=== PATIENT | male | born 1965 | race Caucasian/White ===

== ENCOUNTER 2020-05-21 08:43 | Emergency (ER) | payer OTHER ==
--- OUTSIDE RECORDS SUMMARY | 2020-05-21 08:47 | XMS REPORT | Continuity of Care Document ---
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/2019 Med ical disorder, Group, systemic arterial [place] (disorder) Morbid obesity Active Problem 02/15/2019 [facility] edical (disorder) Group 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, EXCEP Medications Medication Details Route Status Patient Ordering Order Source Instructions Provider Date Docusate Sodium 100 mg = 1 Active 100 MG Oral cap, PO, BID, 2018 [facility] ast Capsule [Colace] # 90 cap, 0 Refill(s), Pharmacy: [id number] tramadol 50 mg = 1 tab, Active hydrochloride 50 PO, Q8H, PRN 2019 [place] MG Oral Tablet Pain, X 20 day, # 60 tab, 0 Refill(s) rosuvastatin Notes: Same as No Longer Crestor Active 2018 [place] Entereg Notes: Same No Longer as: Entereg Active 2018 [place] Maximum of 15 doses Alert Restricted medication Alvimopan (Entergen) order form must be completed prior to dispensing. ceFAZolin + Notes: (Same Inactive sterile water 10 As: Ancef, 2018 [place] mL Kefzol) MEDICATION WASTE Product Size: 1000 mg Product Wasted: ___ mg Hydralazine 10 mg, Route: Inactive IVP, Q20Min, 2018 [place] Dosing Weight 124.545, kg, PRN Elevated BP, Start date: 02/02/19 12:57:00 CDT, Duration: 2 doses or times, Stop date: Limited # of times Labetalol 10 mg, Route: Inactive IVP, Q5Min, 2018 [place] Dosing Weight 124.545, kg, PRN Elevated BP, Start date: 02/02/19 12:57:00 CDT, Duration: 5 doses or times, Stop date: Limited # of times Metoprolol 1 mg, Route: Inactive IVP, Q5Min, 2018 [place] Dosing Weight 124.545, kg, PRN Other -See Comment, Start date: 02/02/19 12:57:00 CDT, Duration: 5 doses or times, Stop date: Limited # of times Ketorolac 30 mg, Route: Inactive IVP, ONCE, 2018 [place] Dosing Weight 124.545, kg, Start date: 02/02/19 12:57:00 CDT, Stop date: 02/02/19 12:57:00 CDT Acetaminophen 1,000 mg, Inactive Route: PO, 2018 [place] Drug form: TAB, ONCE, Dosing Weight 124.545, kg, PRN Pain Score 1-3, Start date: 02/02/19 12:57:00 CDT Ibuprofen 600 mg, Route: Inactive PO, Drug form: 2018 [place] TAB, Q6H, Dosing Weight 124.545, kg, PRN Pain Score 1-3, Start date: 02/02/19 12:57:00 CDT, Duration: 30 day, Stop date: 03/04/19 12:56:00 CDT Fentanyl 25 microgram, Inactive Route: IVP, 2018 [place] Q5Min, Dosing Weight 124.545, kg, PRN Pain Score 4-6, Priority: Routine, Start date: 02/02/19 12:57:00 CDT, Duration: 4 doses or times, Stop date: Limited # of times Hydromorphone 0.5 mg, Route: Inactive IVP, Q5Min, 2018 [place] Dosing Weight 124.545, kg, PRN Pain Score 7-10, Start date: 02/02/19 12:57:00 CDT, Duration: 4 doses or times, Stop date: Limited # of times Flumazenil 0.2 mg, Route: Inactive IVP, PRN, 2018 [place] Dosing Weight 124.545, kg, PRN Benzodiazepine Reversal, Initial dose, Start date: 02/02/19 12:57:00 CDT, Duration: 30 day, Stop date: 03/04/19 12:56:00 CDT Naloxone 0.4 mg, Route: Inactive IVP, Q2MIN, 2018 [place] Dosing Weight 124.545, kg, PRN Narcotic Reversal, Start date: 02/02/19 12:57:00 CDT, Duration: 8 doses or times, Stop date: Limited # of times Diphenhydramine 12.5 mg, Inactive Route: IVP, 2018 [place] Drug form: INJ, Q6H, Dosing Weight 124.545, kg, PRN Itching, Start date: 02/02/19 12:57:00 CDT, Duration: 30 day, Stop date: 03/04/19 12:56:00 CDT Meperidine 12.5 mg, Inactive Route: IVP, 2018 [place] Q30Min, Dosing Weight 124.545, kg, PRN Other -See Comment, For shivering, Start date: 02/02/19 12:57:00 CDT, Duration: 2 doses or times, Stop date: Limited # of times Ondansetron 4 mg, Route: Inactive IVP, ONCE, 2018 [place] Dosing Weight 124.545, kg, PRN Nausea & Vomiting, Start date: 02/02/19 12:57:00 CDT Promethazine 6.25 mg, Inactive Route: IVPB, 2018 [place] ONCE, Dosing Weight 124.545, kg, PRN Nausea & Vomiting, Start date: 02/02/19 12:57:00 CDT 72 HR Scopolamine 1 patch, Inactive 0.0139 MG/HR Route: [facility], 2019 [facility] Transdermal Patch Drug Form: ERFILM, Dosing Weight 124.545, kg, ONCE, Apply behind ear. Avoid use in elderly., Start date: 02/02/19 12:57:00 CDT, Stop date: 02/02/19 12:57:00 CDT sugammadex (ANES) Route: IV, Inactive Drug form: 2018 [place] SOLN, ONCE, Stop date: 02/02/19 12:51:00 CDT Acetaminophen Notes: Max No Longer acetaminophen Active 2018 [place] = 4000mg/day (4 gm/day). (Same as: Tylenol) Methocarbamol Notes: (Same No Longer as:Robaxin) Active 2018 [place] ondansetron (ANES) Route: IV, Inactive H Drug form: 2018 [place] INJ, ONCE, Stop date: 02/02/19 11:58:00 CDT acetaminophen Route: IV, Inactive (ANES) Drug form: 2018 [place] INJ, ONCE, Stop date: 02/02/19 11:53:00 CDT mannitol 25% Route: IV, Inactive intravenous Drug form: 2018 [place] solution (ANES) INJ, ONCE, Stop date: 02/02/19 10:57:00 CDT phenylephrine Route: IV, Inactive (ANES) Drug form: 2018 [place] INJ, ONCE, Stop date: 02/02/19 10:16:00 CDT dexamethasone Route: IV, Inactive (ANES) Drug form: 2018 [place] INJ, ONCE, Stop date: 02/02/19 10:05:00 CDT ciprofloxacin Route: IV, Inactive (ANES) Drug form: 2018 [place] INJ, ONCE, Stop date: 02/02/19 9:56:00 CDT ceFAZolin (ANES) Route: IV, Inactive Drug form: 2018 [place] INJ, ONCE, Stop date: 02/02/19 9:56:00 CDT rocuronium (ANES) Route: IV, Inactive Drug form: 2018 [place] INJ, ONCE, Stop date: 02/02/19 9:40:00 CDT lidocaine (ANES) Route: IV, Inactive Drug form: 2018 [place] INJ, ONCE, Stop date: 02/02/19 9:35:00 CDT propofol (ANES) Route: IV, Inactive Drug form: 2018 [place] INJ, ONCE, Stop date: 02/02/19 9:35:00 CDT midazolam (ANES) Route: IV, Inactive Drug form: 2018 [place] SOLN, ONCE, Stop date: 02/02/19 9:09:00 CDT Docusate Sodium Notes: (Same No Longer H 100 MG Oral as: [facility]) [facility] (Do Not Crush) sennosides, HALFWAY Notes: (Same No Longer H as: Senokot) Active 2018 [place] Calcium Chloride 1,000 mL, No Longer 0.0014 MEQ/ML / Rate: 75 Active 2019 [facility] st Potassium Chloride ml/hr, Infuse 0.004 MEQ/ML / over: 13.3 hr, Sodium Chloride Route: IV, 0.103 MEQ/ML / Dosing Weight Sodium Lactate 124.545 kg, 0.028 MEQ/ML Total Volume: Injectable 1,000, Start Solution date: 02/02/19 8:12:00 CDT, Duration: 1 day, Stop date: 02/03/19 8:11:00 CDT, 2.46, m2, 0 dexmedetomidine Route: IV, Inactive (ANES) 200 Drug form: 2018 [place] microgram INJ, Start date: 02/02/19 8:10:00 CDT, Stop date: 02/02/19 9:10:00 CDT Sodium Chloride Route: IV, Inactive 0.9% IV (ANES) 100 Drug form: 2018 [place] mL + ketAMINE INJ, Start (ANES) 200 mg date: 02/02/19 8:10:00 CDT, Stop date: 02/02/19 9:10:00 CDT Sodium Chloride Route: IV, Inactive 0.9% IV (ANES) Total Volume: 2019 [place] 1000 mL 1,000, Start date: 02/02/19 8:03:00 CDT, Stop date: 02/02/19 9:03:00 CDT Cefazolin Notes: (Same Inactive As: Ancef, 2018 [place] Kefzol) MEDICATION WASTE Product Size: 1000 mg Product Wasted: ___ mg gabapentin 300 MG Notes: (Same No Longer Oral Capsule as: Neurontin) Active 2019 [place] heparin Notes: porcine No Longer heparin Active 2018 [place] Calcium Chloride 1,000 mL, No Longer 0.0014 MEQ/ML / Rate: 75 Active [address] [facility] st Potassium Chloride ml/hr, Infuse 0.004 MEQ/ML / over: 13.3 hr, Sodium Chloride Route: IV, 0.103 MEQ/ML / Dosing Weight Sodium Lactate 124.545 kg, 0.028 MEQ/ML Total Volume: Injectable 1,000, Start Solution date: 02/02/19 7:59:00 CDT, Duration: 30 day, Stop date: 03/04/19 7:58:00 CDT, 2.46, m2, 0 oxybutynin Notes: Same No Longer as: Ditropan) Active 2018 [place] Hydralazine Notes: (Same No Longer as: Active 2018 [place] Apresoline) Push over 5 minutes Dilaudid Notes: Same No Longer as: Dilaudid Active 2018 [place] Lactated Ringers Route: IV, Inactive Injection IV Total Volume: 2018 [facility] (ANES) 1000 mL 1,000, Start date: 02/02/19 7:30:00 CDT, Stop date: 02/02/19 8:30:00 CDT Exparel 266 mg, Route: Inactive NERVE BLOCK, 2018 [place] Dosing Weight 124.545, kg, ONCE, Start date: 02/02/19 6:59:00 CDT, Stop date: 02/02/19 6:59:00 CDT Mannitol Notes: (Same Inactive as: Osmitrol) 2018 [place] Infuse through 5 micron or smaller filter WASTE: F/P - Sink; E - Municipal Trash [employer] Exparel Notes: (Same No Longer as: Exparel) Active 2018 [place] NOT FOR IV use Postoperative analgesia: Infiltration (local): Dose is based on surgical site and volume required to cover the area (in general, the maximum total dose is 266 mg). Bunionectomy: 7 mL into the tissues surrounding the osteotomy and 1 mL into the subcutaneous tissue of the surgical site (total dose = 8 mL [106 mg]) Hemorrhoidecto my: 30 mL (20 mL vial diluted with 10 mL NS) divided and administered as 6 injections of 5 mL each (total dose = 30 mL [266 mg]) Interscalene brachial plexus nerve block: Single dose: Total shoulder arthroplasty or rotator cuff repair: 133 mg (10 mL) Hydrochlorothiazid 1 tab, PO, Active e 12.5 MG / Daily, 0 2018 valsartan 320 MG Refill(s) Oral Tablet neomycin 500 mg 1,000 mg = 2 No Longer 01/26/ M [facility] oral tablet tab, PO, TID, Active 2018 Group take 2 tablets at 4pm, 5pm, 10pm day before surgery, X 1 day, # 6 tab, 0 Refill(s), Pharmacy: [facility] #[id number] Metronidazole 500 500 mg = 1 No Longer 01/26/ H [facility] MG Oral Tablet tab, PO, Q8H, Active 2018 [place] take 1 tablet at 4pm, 5pm, 10pm day before surgery, X 1 day, # 3 tab, 0 Refill(s), [facility]acy: [facility] #[id number] gabapentin 600 MG 600 mg = 1 Active Medical Oral Tablet tab, PO, 2019 Group Daily, 3 hours prior to surgery, # 1 tab, 0 Refill(s), Pharmacy: [facility] #[id number] methocarbamol 750 750 mg = 1 No Longer 01/26/ H Medical mg oral tablet tab, PO, Active 2019 Group Daily, take 3 hours prior to surgery, X 1 day, # 1 tab, 0 Refill(s), Pharmacy: [facility] #[id number] celecoxib 200 MG 200 mg = 1 Active edical Oral Capsule cap, PO, 2019 Group [Celebrex] Daily, take 3 hours prior to surgery, # 1 cap, 0 Refill(s), Pharmacy: [facility] #[id number] Allergies, Adverse Reactions, Alerts Substance Category Reaction Severity Reaction Status Date Comments S ource type Reported sulfa drugs Assertion Unknown Drug Active allergy Medical Group Adhesive Assertion Drug Active Tape allergy Medical Group Immunizations No Data Provided for This Section Results Order Name Results Value Reference Date Interpretation Comments Neva [facility] [place] ELECTROLYT AGAP 10.1 10.0 - 02/03 [facility] 20.0 [place] ELECTROLYT Glucose Lvl 134 70 - 99 02/03 [place] ELECTROLYT BUN 11 7 - 22 02/03 [place] ELECTROLYT Creatinine 1.11 0.50 - 02/03 ES Lvl 1.40 /2018 [place] ELECTROLYT Sodium Lvl 142 135 - 145 02/03 [place] ELECTROLYT Potassium 4.1 3.5 - 5.1 02/03 ES Lvl /2018 [place] ELECTROLYT Chloride Lvl 109 95 - 109 02/03 [place] ELECTROLYT CO2 27 24 - 32 02/03 [place] ELECTROLYT Calcium Lvl 8.2 8.5 - 10.5 02/03 [place] ELECTROLYT eGFR 74 02/03 Comment: The [place] eGFR is calculated using the CKD-EPI formula. In most young, healthy individuals the eGFR will be >90 mL/min/1.73m2 . The eGFR declines with age. An eGFR of 60-89 may be normal in some populations, particularly the elderly, for whom the CKD-EPI formula has not been extensively validated. Use of the eGFR is not recommended in the following populations:< br/>
Valeri viduals with unstable creatinine concentration s, including patients and those with serious co-morbid conditions.<b r/>
Patie nts with extremes in muscle mass or diet.

The data above are obtained from the National Kidney Disease Education Program (NKDEP) which additionally recommends that when the eGFR is used in patients with extremes of body mass index for purposes of drug dosing, the eGFR should be multiplied by the estimated BMI. HEMATOLOGY WBC 13.3 3.7 - 10.4 02/03 [place] HEMATOLOGY RBC 4.04 4.70 - 02/03 6.10 [place] HEMATOLOGY Hgb 12.9 14.0 - 02/03 18.0 [place] HEMATOLOGY Hct 38.6 42.0 - 02/03 MH 54.0 [place] HEMATOLOGY MCV 95.7 80.0 - 02/03 94.0 [place] HEMATOLOGY MCH 32.0 27.0 - 02/03 MH 31.0 [place] HEMATOLOGY MCHC 33.4 32.0 - 02/03 MH 36.0 [place] HEMATOLOGY RDW 13.8 11.5 - 08/21 MH 14.5 [place] HEMATOLOGY Platelet 199 133 - 450 02/03 [place] HEMATOLOGY MPV 8.9 7.4 - 10.4 02/03 [place] HEMATOLOGY Segs 76.4 45.0 - 02/03 [facility] 75.0 [place] HEMATOLOGY Lymphocytes 15.9 20.0 - 02/03 MH 40.0 [place] HEMATOLOGY Monocytes 6.9 2.0 - 12.0 02/03 [place] HEMATOLOGY Eosinophils 0.6 0.0 - 4.0 02/03 [place] HEMATOLOGY Basophils 0.2 0.0 - 1.0 02/03 [place] HEMATOLOGY Neutrophils 10.2 1.5 - 8.1 02/03 MH # [place] HEMATOLOGY Lymphocytes 2.1 1.0 - 5.5 02/03 [place] HEMATOLOGY Monocytes # 0.9 0.0 - 0.8 02/03 [place] HEMATOLOGY Eosinophils 0.1 0.0 - 0.5 02/03 [facility] [place] CHEM PANEL Glucose Lvl 167 70 - 99 02/02 [place] CHEM PANEL BUN 15 7 - 22 02/02 [place] CHEM PANEL Creatinine 1.19 0.50 - 02/02 Lvl 1.40 [place] CHEM PANEL Sodium Lvl 140 135 - 145 02/02 [place] CHEM PANEL Potassium 4.1 3.5 - 5.1 02/02 MH Lvl [place] CHEM PANEL Chloride Lvl 109 95 - 109 02/02 [place] CHEM PANEL CO2 22 24 - 32 02/02 [place] CHEM PANEL Calcium Lvl 7.8 8.5 - 10.5 02/02 [place] CHEM PANEL eGFR 68 02/02 Result Comment: The [place] eGFR is calculated using the CKD-EPI formula. In most young, healthy individuals the eGFR will be >90 mL/min/1.73m2 . The eGFR declines with age. An eGFR of 60-89 may be normal in some populations, particularly the elderly, for whom the CKD-EPI formula has not been extensively validated. Use of the eGFR is not recommended in the following populations:< br/>
Valeri viduals with unstable creatinine concentration s, including patients and those with serious co-morbid conditions.<b r/>
Patie nts with extremes in muscle mass or diet.

The data above are obtained from the National Kidney Disease Education Program (NKDEP) which additionally recommends that when the eGFR is used in patients with extremes of body mass index for purposes of drug dosing, the eGFR should be multiplied by the estimated BMI. CHEM PANEL AGAP 13.1 10.0 - 02/02 20.0 [place] HEMATOLOGY Hgb 14.4 14.0 - 02/02 18.0 [place] HEMATOLOGY Hct 43.4 42.0 - 02/02 54.0 [place] BLOOD BANK ABO/Rh A POS 01/26 RESULTS /2018 [place] BLOOD BANK Antibody Negative 01/26 RESULTS Scrn (01/26/19 10:08 AM) [facility] ELECTROLYT AGAP 11.8 10.0 - 01/26 ES 20.0 [place] ELECTROLYT Glucose Lvl 135 70 - 99 01/26 ES [place] ELECTROLYT BUN 19 7 - 22 01/26 ES [place] ELECTROLYT Creatinine 1.05 0.50 - 01/26 ES Lvl 1.40 [place] ELECTROLYT Sodium Lvl 142 135 - 145 01/26 ES [place] ELECTROLYT Potassium 3.8 3.5 - 5.1 01/26 ES Lvl [place] ELECTROLYT Chloride Lvl 105 95 - 109 01/26 ES [place] ELECTROLYT CO2 29 24 - 32 01/26 ES [place] ELECTROLYT Calcium Lvl 9.0 8.5 - 10.5 01/26 ES [place] ELECTROLYT eGFR 80 01/26 Comment: The [place] eGFR is calculated using the CKD-EPI formula. In most young, healthy individuals the eGFR will be >90 mL/min/1.73m2 . The eGFR declines with age. An eGFR of 60-89 may be normal in some populations, particularly the elderly, for whom the CKD-EPI formula has not been extensively validated. Use of the eGFR is not recommended in the following populations:< br/>
Valeri viduals with unstable creatinine concentration s, including patients and those with serious co-morbid conditions.<b r/>
Patie nts with extremes in muscle mass or diet.

The data above are obtained from the National Kidney Disease Education Program (NKDEP) which additionally recommends that when the eGFR is used in patients with extremes of body mass index for purposes of drug dosing, the eGFR should be multiplied by the estimated BMI. HEMATOLOGY WBC 9.0 3.7 - 10.4 01/26 [place] HEMATOLOGY RBC 4.52 4.70 - 01/26 MH 6.10 [place] HEMATOLOGY Hgb 14.5 14.0 - 01/26 MH 18.0 /2018 [place] HEMATOLOGY Hct 42.1 42.0 - 01/26 MH 54.0 /2018 [place] HEMATOLOGY MCV 93.2 80.0 - 01/26 MH 94.0 /2018 [place] HEMATOLOGY MCH 32.1 27.0 - 01/26 MH 31.0 /2018 [place] HEMATOLOGY MCHC 34.4 32.0 - 01/26 MH 36.0 /2018 [place] HEMATOLOGY RDW 13.8 11.5 - 01/26 14.5 [facility] Platelet 209 133 - 450 01/26 [place] HEMATOLOGY MPV 9.1 7.4 - 10.4 01/26 [place] HEMATOLOGY PT 12.8 12.0 - 01/26 14.7 [place] HEMATOLOGY PTT 29.5 22.9 - 01/26 35.8 /2019 [place] HEMATOLOGY INR 0.98 0.85 - 01/26 MH 1.17 /2018 [place] HEMATOLOGY Segs 64.0 45.0 - 01/26 75.0 /2018 [place] HEMATOLOGY Lymphocytes 25.7 20.0 - 01/26 40.0 /2018 [place] HEMATOLOGY Monocytes 6.8 2.0 - 12.0 01/26 /2018 [place] HEMATOLOGY Eosinophils 3.2 0.0 - 4.0 01/26 [place] HEMATOLOGY Basophils 0.3 0.0 - 1.0 01/26 [place] HEMATOLOGY Neutrophils 5.7 1.5 - 8.1 01/26 MH # /2019 [place] HEMATOLOGY Lymphocytes 2.3 1.0 - 5.5 01/26 # /2018 [place] HEMATOLOGY Monocytes # 0.6 0.0 - 0.8 01/26 [place] HEMATOLOGY Eosinophils 0.3 0.0 - 0.5 01/26 # /2018 [place] URINE AND UA Turbidity Clear Clear 01/26 STOOL (01/26/19 10:08 AM) /2018 [facility] URINE AND UA Spec Grav 1.009 <=1.030 01/26 STOOL /2019 [place] URINE AND UA pH 8.0 5.0 - 8.0 01/26 [facility]OOL [place] URINE AND UA Protein Negative Negative 01/26 STOOL mg/dL mg/dL [place] URINE AND UA Glucose Negative Negative 01/26 [facility]OOL mg/dL mg/dL [place] URINE AND UA Ketones Negative Negative 01/26 STOOL mg/dL mg/dL [place] URINE AND UA Bili Negative Negative 01/26 STOOL *NA* /2018 [place] (01/26/19 10:08 AM) URINE AND UA Blood Negative Negative 01/26 STOOL (01/26/19 10:08 AM) [facility] URINE AND UA Nitrite Negative Negative 01/26 STOOL (01/26/19 10:08 AM) [facility] URINE AND UA Leuk Est Negative Negative 01/26 STOOL (01/26/19 10:08 AM) [facility] URINE AND UA Sq Epi Occasional Few /LPF 01/26 STOOL /LPF [place] URINE AND UA WBC 1 0 - 5 01/26 STOOL [place] URINE AND UA RBC 2 0 - 2 01/26 [facility]OL [place] URINE AND UA Mucus Few /LPF None Seen 01/26 STOOL /LPF [place] URINE AND UA Color Ltyellow 01/26 [place] URINE AND UA <=1.0 0.1 - 1.0 01/26 STOOL Urobilinogen mg/dL [place] Culture: <10,000 01/26 Urine CFU/mL [place] Skin [facility] BLOOD BANK RBC product Product available 01/26 RESULTS (01/26/19 9:54 AM) [facility] ast Pathology Reports No Data Provided for This Section Diagnostic Reports Report Value Date Source Chest 2 views DX CHEST TWO VIEW 01/26/2019 [facility] INDICATION: Preadmission clearance. COMPARISON: None. FINDINGS: The lungs are keren r. The pleura, cardiomediastinal silhouette and bony thorax are normal. IMPRESSION: Negative. END IMPRESSION SL: [id number] Biopsy kidney VR PROCEDURE: 12/29/[address] [facility] [address] guided biopsy of right renal mass INDICATION: - RT RENAL MASS. COMPARISON: Magnetic resonance imaging abdomen J une 2019 TECHNICAL: CT imaging performed at this location utilizes radiation dose optimization techniques which include one or more of the following: -Automated exposure control -Adjustment of the mA and/or kV according to pat ient size -Use of iterative reconstruction technique CT Radiation Dose: DLP = 2133 mGy-cm MODERATE SEDATION: I superv ised moderate sedation during this procedure. The patient was monitored by nurse using automated blood pressure, EKG and pulse oximetry. The moderate sedation record is perma nently stored in the [employer] information system. The personal supervised moderate sedation time was minutes. Medications administered: 1 mg of IV Versed and 75micrograms of IV Fentanyl. PROCEDURE: Imaging was used to evaluate potential biopsy site. Preliminary imaging demonstrates 2 x 3 cm solid density mass within the right renal lower pole anterior cortical region. The procedure, risks, benefi ts and alternatives were discussed. Informed consent was obtained. Timeout was performed prior to the procedure. The overlying skin was steri griffin prepped and draped. 1% lidocaine was used for local anesthesia. Using imaging guidance, a guide needle was advanced into the margin of the lesion. 20-gauge core renal bi opsy was performed. Images w ere obtained to document needle positions for permanent recording and reporting. The samples were immediately submitted to pathology department. There were no evident complic ations and the patient had n o complaints. Pressure was applied at the puncture site with adequate hemostasis. Final pathology results are pending. FINDINGS: Guide needle description: 19-gauge Biopsy needle description: 20-gauge Number of biopsies obtained: 6 IMPRESSION: 1. Technically successful image guided biopsy o f right renal mass. Consultation Notes No Data Provided for This Section Discharge Summaries No Data Provided for This Section History and Physicals No Data Provided for This Section Vital Signs Vital Sign Value Date Comments Source Height 170.18 cm 02/12/2019 [facility] Weight 126.165 02/12/2019 [facility] BMI Calculated 43.56 02/12/2019 [facility] Temperature Oral (F) 98.2 [facility]/03[facility]2019 [facility] Systolic (mm Hg) 123 02/03/2019 [place] Diastolic (mm Hg) 84 02/03/[address] Respitory Rate 18 02/03/2019 [facility] Respitory Rate 18 02/03/2019 [facility] Temperature Oral (F) 98.6 F 02/03/2019 [facility] [place] Heart Rate 80 02/03/2019 [facility] Respitory Rate 18 02/03/2019 [facility] Systolic (mm Hg) 117 02/03/2019 [place] Diastolic (mm Hg) 73 02/03/[facility] Oral (F) 98.4 F 02/03/2019 [place] Heart Rate 87 02/03/2019 [place] Systolic (mm Hg) 122 02/03/2019 [place] Diastolic (mm Hg) 75 02/03/[address] Height 170.18 cm 02/02/2019 [facility] Weight 124.545 02/02/2019 [facility] BMI Calculated 43 02/02/2019 [facility] Height 170.18 cm 01/26/2019 [facility] Weight 124.545 01/26/2019 [facility] BMI Calculated 43 01/26/2019 [facility] Height 170.18 cm 01/08/2019 [facility] Weight 123.267 01/08/2019 [facility] BMI Calculated 42.56 01/08/2019 [facility] Weight 123.182 12/29/2018 [facility] BMI Calculated 42.53 12/29/2018 [facility] Height 170.18 cm 12/29/2018 [facility] Encounters Location Location Encounter Encounter Reason Attending ADM [place] Source Details Type Number For Provider Date Date Visit Outpatient [id number] 12/11 [facility] [place] [facility] Outpatient [id number] 12/29 [facility] /2018 [facility] Outpatient [id number] 01/08 [facility] [place] [facility] Outpatient [id number] 01/08 [facility] Outpatient [id number] NURSE 01/26 [facility] [place] VISIT /2018 [facility] Outpatient [id number] NURSE 01/26 01/27 [facility] VISIT /[facility] Inpatient [id number] 02/02 [facility] /2018 [facility] Outpatient [id number] 02/12 [facility] [place] [facility] Outpatient [id number] 02/12 [facility] [place] [facility] Time Share Procedures Procedure Code Date Perfomer Comments Source Partial nephrectomy [id number] [facility] dical 9 Group Knee joint operation [id number] [facility] edical 9 Group,[facility] Knee joint [id number] multiple Medical operation<sup>1</sup> 9 Tamir up,[facility] Cholecystectomy [id number] [facility] Tonsillectomy [id number] [facility] Assessment and Plan Assessment and Plan Date Source Extracted from:Title: Progress Note * 02/03/2019 [facility] Author: Josr Niño MD Date: 02/03/19 Impression and Plan Status post robotic assisted right partial nephrectomy 2018 -Regular diet saline lock IV -DC Christine -DC SERGO -DC home once voids Josr Niño MD [facility] Office: [phone] [email or web address] Plan of Care No Data Provided for This Section Social History Social History Date Source Social History TypeResponse 01/26/2019 [place] Alcohol Never Employment/School Status: Employed. 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 Sexual Sexually active: Yes. Substance Abuse Use: None. Smoking Status Never smoker; Type: Chewing tobacco; Pre vious treatment: None; Ready to change: No; Concerns about tobacco use in household: No; Exposure to Tobacco Smoke None; Cigarette Smoking Last 365 Days No; Reg Smoking Cessation Counseling No entered on: 02/02/19 Social History TypeResponse 01/26/2019 [facility] [place] Alcohol Never Employment/School Status: Employed. 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 Sexual Sexually active: Yes. Substance Abuse Use: None. Smoking Status Never smoker; Type: Chewing tobacco; Pre vious treatment: None; Ready to change: No; Concerns about tobacco use in household: No; Exposure to Tobacco Smoke None; Cigarette Smoking Last 365 Days No; Reg Smoking Cessation Counseling No entered on: 02/12/19 Family History No Data Provided for This Section Advance Directives No Data Provided for This Section Functional Status No Data Provided for This Section
--- OUTSIDE RECORDS SUMMARY | 2020-05-21 08:48 | XMS REPORT ---
:1965 Author Organization [facility] Address [address] [place], [address] [place] [address] Care Team Providers Name Role Phone Jethro Unavailable [phone] PROBLEMS Type Condition ICD9-CM JQS34-JP Onset Condition SNOMED Code Notes Code Code Dates Status Problem Pain, joint, knee, M25.562 Active 27852994 left Problem Mixed E78.2 Active 398018094 hyperlipidemia Problem HTN, goal below I10 Active 39317874 140/90 Problem Type 2 diabetes E11.69 Active 14189907 mellitus with other specified complication, without long-term current use of insulin Problem Morbid (severe) E66.01 Active 381946299 obesity due to excess calories Problem Adult BMI Z68.41 Active 819979334 40.0-44.9 kg/sq m Problem Derangement of M23.232 Active 005006940 other medial meniscus due to old tear or injury, left knee Problem Right renal mass N28.89 Active 262540520 Problem Prediabetes R73.03 Active 518506136 Problem History of renal Z85.528 Active 931804607 cell carcinoma Problem 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 171417251 cell carcinoma ALLERGIES Allergen (clinical drug Drug/Non Drug Allergy Reaction Allergy Type Onset Date Status ingredient) documented on EMR Sulfa Unknown Drug Allergy Active ENCOUNTERS from 1965 to 2020-05-16 Encounter Location Date Provider Diagnosis [facility] [address] [place], Noam Morelos Type [address] [place], [place] [address] specified comp lication, without long-te rm current use of insulin E11.69 ; Low testosterone in male R79.89 ; HTN, g oal below 140/90 I1 0 ; Mixed hyperlipi demia E78.2 ; Papilla ry renal cell carcinoma C64.9 ; History of sd l cell carcinoma Z85.5 28 ; Encounter for d ietary counseling and surveillance Z7 1.3 ; Fatigue, unspec ified type R53.83 ; D ecreased libido R68.82 ; Adult BMI 40.0-44.9 k g/sq m Z68.41 and Morb id (severe) obesit y due to excess calories E66.01 IMMUNIZATIONS No Information SOCIAL HISTORY Tobacco Use: Social History Observation Description Date Details (start date - stop date) Never Smoker Sex Assigned At : Social History Observation Description Sex Assigned At Unknown Alcohol Screen Question Answer Notes Did you have a drink containing alcohol in the past Yes year? Points 1 Interpretation Negative How many drinks did you have on a typical day when 1 or 2 (0 points) you were drinking in the past year? How often did you have a drink containing alcohol in Monthly or less (1 point) the past year? Tobacco Use/Smoking Question Answer Notes Are you a never smoker Additional Findings: Tobacco Non-User Current non-smoker REASON FOR REFERRAL No Information VITAL SIGNS Height 67 in May, Weight 275.9 lbs May, Temperature 97.4 degrees Fahrenheit May, BMI 43.21 kg/m2 May, Oximetry 97 % May, Respiratory Rate 19 /min May, Blood pressure systolic 132 mm Hg May, Blood pressure diastolic 88 mm Hg May, MEDICATIONS Medication SIG (Take, Route, Notes Start Date End Date Status Frequency, Duration) Synjardy XR 10-1000 MG 1 tablet with breakfast Active Orally Once a day for 90 days Hydrochlorothiazide 12.5 MG 1 tablet in the morning Active Orally Once a day for 90 days Rosuvastatin Calcium 20 MG 1 tablet Orally Once a Active day for 90 Rosuvastatin Calcium 20 MG 1 tablet Orally Once a Active day for 90 days Losartan Potassium 100 MG 1 tablet Orally Once a Active day for 90 days PROCEDURES No Information RESULTS No Results REASON FOR VISIT lab f/u in [facility] MEDICAL (GENERAL) HISTORY Type Description Date Medical History Morbid (severe) obesity due to excess ca lories Medical History HTN, goal below 140/90 Medical History Mixed hyperlipidemia Medical History Prediabetes Medical History Papillary renal cell carcinoma Medical History History of renal cell carcinoma Surgical History GB Surgical History KNEE 2005 Surgical History Resection of Renal Mass Right, Papillary Renal Cell 01/2019 Caricnoma Goals Section No Information Health Concerns No Information MEDICAL EQUIPMENT No Information MENTAL STATUS No Information FUNCTIONAL STATUS No Information ASSESSMENTS Encounter Date Diagnosis Assessment Notes Treatment Notes Treatm ent Clinical Notes May, Type 2 diabetes CONT Synjardy XR 1 mellitus with other tab and titrate as specified tolerated. Side complication, effect discussed. without long-term Samples given. current use of Diabetes Education insulin (ICD-10 - Diabetes is a E11.69) disorder that disrupts the way your body uses glucose (sugar). It is a chronic medication condition that requires regular monitoring and treatment throughout your life. Treatment includes: lifestyle modification, self-care measures, and medication. Fortunately, these treatments can keep the blood sugar levels close to normal and minimize the risk of developing complications. The primary blood test to measure the progress of diabetes is the Hemoglobin A1c. Normal levels is less than 7.0 but less than 6.5 is considered excellent control. Fasting blood sugars should be in the range of 80-120 while random blood sugars should range below 200 especially after meals. Carbohydrate (sugar) intake for diabetics should be below 45 grams per meal and 15 grams per snack. Diabetic preventive care is vital to prevent complications, so it is important to have yearly diabetic eye and foot exams with specialists. If your diabetes is not controlled, then contact your doctor to further address.Medication may need to be adjusted and/or added. May, Low testosterone in Discussed male (ICD-10 - differential R79.89) diagnosis extensively with patient. Education given. Labs reviewed. Testosterone low x2. Will refer to urologist for further evaluation and management. Discuss potential treatment options. May, HTN, goal below CHanged to Losartan 140/90 (ICD-10 - + HCTZ. Side effect I10) discussed. Will consider increasing at f/u if continues to be elevated intermittenttly. DASH Diet discussed. Instructed to measure BP at home and bring in log to f/u appt. Instructions and logs given. Education given. , HTN Education This is a condition that puts at risk for heart attack, stroke, and kidney disease. Lifestyle modification, low fat/low salt diet, exercise, low alcohol intake and medication is utilized to help control your BP. Untreated HTN increases the strain on the heart and arteries, eventually causing organ damage.Normal BP is less than 140/90. High BP is greater than 140/90. If your BP is not controlled, call your doctor. Medication may need to be adjusted and/or added. Compliance with medication is vital. If you have chest pain, shortness of breath, severe nausea/vomiting, fatigue, and other symptoms, you will need to contact your doctor or go to the ER immediately to address. May, Mixed hyperlipidemia INCREASED Crestor 20 (ICD-10 - E78.2) mg. Side effect discussed. Education given. , Hyperlipidemia Education: Hyperlipidemia refers to increased levels of lipids(fats) in the blood, including cholesterol and triglycerides. This can significantly increase your risk of developing coronary artery disease and peripheral artery disease. This can cause chest pain, heart attack, stroke, and fatigue. Treatment is recommended to decrease your risk. Treatment includes: lifestyle modification, low salt/low fat diet, exercise, tobacco cessation, low alcohol intake and sometimes medication. Blood tests (TC,TG, HDL, LDL) are utilized to determine treatment regimens. TC(Total cholesterol) should be below 200. TG(Total Triglycerides) should be below 150. HDL(Good cholesterol) should be above 40. LDL(Bad Cholesterol) should be below 130(if you have one risk factor) or less than 100( if you have more than one risk factor or have DM/CAD/PVD). Compliance with medication and treatment is vital. If you have questions, talk to your doctor. May, Papillary renal cell Education given. carcinoma (ICD-10 - Managed by Urology. C64.9) ROR signed. May, History of renal Education given. cell carcinoma Managed by Urology. (ICD-10 - Z85.528) ROR signed. May, Encounter for dietary counseling and surveillance (ICD-10 - Z71.3) May, Fatigue, unspecified Will check T. type (ICD-10 - R53.83) May, Decreased libido (ICD-10 - R68.82) May, Adult BMI 40.0-44.9 Discussed kg/sq m (ICD-10 - extensively with Z68.41) patient. Discussed surgical versus nonsurgical weight loss options. Discussed medication options as well too. Educated on the importance of weight loss. STOPPED Adipex 37.5 mg. Side effect panel discussed extensively. Expected to lose more than 5% body weight in 12 weeks, if unable will stop medication. If symptomatic will obtain EKG. No personal or family history of cardiac. Counseling given. Spent more than 15 min with patient discussing and planning diet and exercise plan. May, Morbid (severe) Counseling given. obesity due to Education given. excess calories Utilized the 5-A''s (ICD-10 - E66.01) approach to increase patient motivation and behavioral change. ASK: Patient expressed desire/readiness to change and premission was obtained to discuss. ASSESS: BMI class discussed. In addition, patient''s barrier to weight loss and identified drivers and complications. ADVISE: Discussed benefits of modest weight loss and long-term strategy as well. Educated on risks and complications of obesity on health. Treatment options were discussed including but not limited to non-surgical (medications, gym, diet/exercise) and surgical options. AGREE: Realistic weight-loss goal discussed. Behavioral goals done. Patient agreed with treatment plan. ASSIST: Provided education and resources. Plan made to address drivers and barriers. Close follow-up arranged. START: Walking daily, reducing soda and increased hydration with water of at least 64 ounces. May, Other -- Medication reviewed and updated. -- Dietary and Lifestyle modifications addressed regarding diet, exercise and weight managemen t. -- Treatment options, risks and benefits, side effects reviewed in detail. -- Advised on signs/symptoms to monitor and when to call clinic and/or visit the nearest ER. Patient verbalized understanding and agreeable with plan. PLAN OF TREATMENT Medication Medication Name Sig Start Date Stop Date Synjardy XR 10-1000 MG 1 tablet with breakfast Orally Once a day for 90 days Rosuvastatin Calcium 20 MG 1 tablet Orally Once a day for 90 days Hydrochlorothiazide 12.5 MG 1 tablet in the morning Orally Once a day for 90 days Losartan Potassium 100 MG 1 tablet Orally Once a day for 90 days Treatment Notes Assessment Notes Clinical Notes Type 2 diabetes mellitus with other CONT Synjardy XR 1 tab a nd titrate specified complication, without as tolerated. Side effect long-term current use of insulin discussed. Samples given. D iabetes Education Diabetes is a disorder that disrupts the way your body uses glucose (sugar). It is a chronic medication condition that requires regular monitoring and treatment throughout your life. Treatment includes: lifestyle modification, self-care measures, and medication. Fortunately, these treatments can keep the blood sugar levels close to normal and minimize the risk of developing complications. The primary blood test to measure the progress of diabetes is the Hemoglobin A1c. Normal levels is less than 7.0 but less than 6.5 is considered excellent control. Fasting blood sugars should be in the range of 80-120 while random blood sugars should range below 200 especially after meals. Carbohydrate (sugar) intake for diabetics should be below 45 grams per meal and 15 grams per snack. Diabetic preventive care is vital to prevent complications, so it is important to have yearly diabetic eye and foot exams with specialists. If your diabetes is not controlled, then contact your doctor to further address.Medication may need to be adjusted and/or added. Low testosterone in male Discussed differential diagnosis extensively with patient. Education given. Labs reviewed. Testosterone low x2. Will refer to urologist for further evaluation and management. Discuss potential treatment options. HTN, goal below 140/90 CHanged to Losartan + HCTZ. Side effect discussed. Will consider increasing at f/u if continues to be elevated intermittenttly. DASH Diet discussed. Instructed to measure BP at home and bring in log to f/u appt. Instructions and logs given. Education given. , HTN Education This is a condition that puts at risk for heart attack, stroke, and kidney disease. Lifestyle modification, low fat/low salt diet, exercise, low alcohol intake and medication is utilized to help control your BP. Untreated HTN increases the strain on the heart and arteries, eventually causing organ damage.Normal BP is less than 140/90. High BP is greater than 140/90. If your BP is not controlled, call your doctor. Medication may need to be adjusted and/or added. Compliance with medication is vital. If you have chest pain, shortness of breath, severe nausea/vomiting, fatigue, and other symptoms, you will need to contact your doctor or go to the ER immediately to address. Mixed hyperlipidemia INCREASED Crestor 20 mg. Side effect discussed. Education given. , Hyperlipidemia Education: Hyperlipidemia refers to increased levels of lipids(fats) in the blood, including cholesterol and triglycerides. This can significantly increase your risk of developing coronary artery disease and peripheral artery disease. This can cause chest pain, heart attack, stroke, and fatigue. Treatment is recommended to decrease your risk. Treatment includes: lifestyle modification, low salt/low fat diet, exercise, tobacco cessation, low alcohol intake and sometimes medication. Blood tests (TC,TG, HDL, LDL) are utilized to determine treatment regimens. TC(Total cholesterol) should be below 200. TG(Total Triglycerides) should be below 150. HDL(Good cholesterol) should be above 40. LDL(Bad Cholesterol) should be below 130(if you have one risk factor) or less than 100( if you have more than one risk factor or have DM/CAD/PVD). Compliance with medication and treatment is vital. If you have questions, talk to your doctor. Papillary renal cell carcinoma Education given. Managed by Urology. ROR signed. History of renal cell carcinoma Education given. Managed by Urology. ROR signed. Fatigue, unspecified type Will check T. Adult BMI 40.0-44.9 kg/sq m Discussed extensively with markos cline. Discussed surgical versus nonsurgical weight loss options. Discussed medication options as well too. Educated on the importance of weight loss. STOPPED Adipex 37.5 mg. Side effect panel discussed extensively. Expected to lose more than 5% body weight in 12 weeks, if unable will stop medication. If symptomatic will obtain EKG. No personal or family history of cardiac. Counseling given. Spent more than 15 min with patient discussing and planning diet and exercise plan. Morbid (severe) obesity due to Counseling given. Education camelia galicia. excess calories Utilized the 5-A''s approach to increase patient motivation and behavioral change. ASK: Patient expressed desire/readiness to change and premission was obtained to discuss. ASSESS: BMI class discussed. In addition, patient''s barrier to weight loss and identified drivers and complications. ADVISE: Discussed benefits of modest weight loss and long-term strategy as well. Educated on risks and complications of obesity on health. Treatment options were discussed including but not limited to non-surgical (medications, gym, diet/exercise) and surgical options. AGREE: Realistic weight-loss goal discussed. Behavioral goals done. Patient agreed with treatment plan. ASSIST: Provided education and resources. Plan made to address drivers and barriers. Close follow-up arranged. START: Walking daily, reducing soda and increased hydration with water of at least 64 ounces. Treatment Notes Test Name Order Date Lipid Panel With LDL/HDL Ratio 2020-05-16 Testosterone, Free+Total LC/MS 2020-05-16 Microalbumin/Creat Ratio, Random Ur 2020-05-16 Hemoglobin A1c 2020-05-16 Comp. Metabolic Panel (14) (CMP) 2020-05-16 CBC With Differential/Platelet 2020-05-16 Next Appt Details 3 Months + Labs 1 week Reason: Provider Name:Naom Morelos, 2020-08-09 0 8:30:00 AM, [address], [address], [place], [address], Provider Name:Noam Morelos, 2020-08-16 0 8:30:00 AM, [address], [address], [place], [address], Insurance Providers Payer Name Payer Payer Insured Name Patient Coverage Covera ge End Address Phone Relationship to Start Date Parveen e Insured [employer] [phone] Tom Nagy self CLAIMS [id number] [facility] [id number]
--- OUTSIDE RECORDS SUMMARY | 2020-05-21 08:48 | XMS REPORT ---
:1965 Author Organization [facility] Address [address] [place], [address] [place] [address] Care Team Providers Name Role Phone Morelos Unavailable [phone] PROBLEMS Type Condition ICD9-CM MDA87-JS Onset Condition SNOMED Code Notes Code Code Dates Status Problem Pain, joint, knee, M25.562 Active 91726856 left Problem Mixed E78.2 Active 558038108 hyperlipidemia Problem HTN, goal below I10 Active 97808955 140/90 Problem Type 2 diabetes E11.69 Active 32154759 mellitus with other specified complication, without long-term current use of insulin Problem Morbid (severe) E66.01 Active 263708685 obesity due to excess calories Problem Adult BMI Z68.41 Active 008769408 40.0-44.9 kg/sq m Problem Derangement of M23.232 Active 540806086 other medial meniscus due to old tear or injury, left knee Problem Right renal mass N28.89 Active 473778141 Problem Prediabetes R73.03 Active 837140402 Problem History of renal Z85.528 Active 567296488 cell carcinoma Problem 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 134964484 cell carcinoma ALLERGIES Allergen (clinical drug Drug/Non Drug Allergy Reaction Allergy Type Onset Date Status ingredient) documented on EMR Sulfa Unknown Drug Allergy Active ENCOUNTERS from 1965 to 2020-05-08 Encounter Location Date Provider Diagnosis [facility] [address] [place] Apr, Noam Morelos Low testosterone in Family Medicine [address], male R7 9.89 [place] [address] IMMUNIZATIONS No Information SOCIAL HISTORY Tobacco Use: [...] REASON FOR REFERRAL No Information VITAL SIGNS No information MEDICATIONS Medication SIG (Take, Route, Notes Start Date End Date Status Frequency, Duration) Synjardy XR 10-1000 MG 1 tablet with breakfast Active Orally Once a day for 90 Losartan Potassium 100 MG 1 tablet Orally Once a Active day for 90 Hydrochlorothiazide 12.5 MG 1 tablet in the morning Active Orally Once a day for 90 Rosuvastatin Calcium 20 MG 1 tablet Orally Once a Active day for 90 PROCEDURES No Information RESULTS No Results REASON FOR VISIT testosterone labs, appt MEDICAL (GENERAL) HISTORY Type Description Date Medical History Morbid (severe) obesity due to excess ca lories Medical History HTN, goal below 140/90 Medical History Mixed hyperlipidemia Medical History Prediabetes Medical History Papillary renal cell carcinoma Medical History History of renal cell carcinoma Surgical History GB Surgical History KNEE 2004 Surgical History Resection of Renal Mass Right, Papillary Renal Cell 01/2019 Caricnoma Goals Section No Information Health Concerns No Information MEDICAL EQUIPMENT No Information MENTAL STATUS No Information FUNCTIONAL STATUS No Information ASSESSMENTS Encounter Date Diagnosis Assessment Notes Treatment Notes Treatm ent Clinical Notes Apr, Low testosterone in male (ICD-10 - R79.89) PLAN OF TREATMENT Medication Medication Name Sig Start Date Stop Date Synjardy XR 10-1000 MG 1 tablet with breakfast Orally Once a day for 90 Hydrochlorothiazide 12.5 MG 1 tablet in the morning Orally Once a day for 90 Rosuvastatin Calcium 20 MG 1 tablet Orally Once a day for 90 Losartan Potassium 100 MG 1 tablet Orally Once a day for 90 Treatment Notes Test Name Order Date Prolactin 2020-05-08 Testosterone, Free+Total LC/MS 2020-05-08 Prostate-Specific Ag, Serum 2020-05-08 CBC With Differential/Platelet 2020-05-08 FSH and LH 2020-05-08 Next Appt Details Provider Name:[facility] Jethro, 2020-05-10 0 8:00:00 AM, [address], [address], [place], [address], Provider Name:Noam Morelos, 2020-05-16 0 9:20:00 AM, [address], [address], [place], [address], Insurance Providers Payer Name Payer Payer Insured Name Patient Coverage Covera End Address Phone Relationship to Start Date Parveen e Insured [employer]ML [employer] [phone] Tom Nagy self CLAIMS [id number] [facility] [id number]
--- OUTSIDE RECORDS SUMMARY | 2020-05-21 08:48 | XMS REPORT | Continuity of Care Document ---
:1965 Author Organization [facility] t Address [address] [place] [address] Care Team Providers Name Role Phone Josr Niño Attending Clinician VISIT, [facility] Attending Clinician Unavailable Ulysses Niño Admitting Clinician Payers Payer Name Policy Type Policy Number Effective Date Expiration Date S ource Problems Condition Condition Condition Status Onset Resolution Last Treating Co mments Source Name Details Category Date Date Treatment Clinician Date ROBOTIC Diagnosis Active 2019-02-02 Me moria PARTIAL 01-05 05:17:00 l NEPHRECTOM ROBOTIC 00:00: Her ken Y PARTIAL 00 NEPHRECTOM Y Active 01/05/2019 [facility] RENAL CELL Diagnosis Active 2019-02-03 Memoria CARCINOMA 01-05 11:23:00 l RENAL 00:00: [place] CELL 00 CARCINOMA Active 01/05/2019 [facility] RENAL MASS Diagnosis Active 2018-12-29 Memoria 12-22 06:49:00 l RENAL 00:00: [place] MASS 00 Active 12/22/2018 [facility] Hypertensi Problem Resolve 2019-02-15 Memoria ve d 00:36:44 l disorder, [place] systemic Hypertensi arterial ve (disorder) disorder, systemic arterial (disorder) Resolved Problem 02/15/2019 [facility] Hyperlipid Problem Active 2019-02-15 M emoria emia 00:36:44 l (disorder) Tariq n Hyperlipid emia (disorder) Active Problem 02/15/2019 [facility] Morbid Problem Active 2019-02-15 Memor ia obesity 00:36:44 l (disorder) Morbid Herm chano obesity (disorder) Active Problem 02/15/2019 [facility] MALIGNANT Diagnosis Active 2019-02-03 Memoria NEOPLASM 11:23:00 l OF UNSP 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, MALIGNANT EXCEP NEOPLASM OF UNSP KIDNEY, EXCEP Active [facility] Allergies, Adverse Reactions, Alerts Allergy Allergy Status Severity Reaction(s) Onset Inactive Treating Comm ents Source Name Type Date Date Clinician Sulfa DA Active [facility] (Sulfona 6-19 Clear mide 00:00: [place] Antibiot 00 Regiona ics) [facility] Sulfa Adverse Active Info Not [facility] Reaction Available [facility] ent [facility] sulfa sulfa Active [facility] drugs drugs [facility] Social [facility] Social Habit Start Date Stop Date Quantity Comments Source Social History 2019-01-26 2019-01-26 [facility] 15:24:15 15:24:15 Medications Ordered Filled Start Stop Current Ordering Indication Dosage Frequency Signature Comments Components Source Medication Medication Date Date Medication? Clinician (SIG) Name Name Hydrochloro Hydrochloro Yes Noam [address] [facility] thiazide thiazide 6-04 [place] in the [facility] - 00:00: morning Memoria 00 [facility] ent [facility] Losartan Losartan Yes Noam [address] [facility] Potassium Potassium 6-04 [place] [facility] - 00:00: Memoria [facility] ent Clinics Docusate Yes 100 mg = 1 Mem oria Sodium 100 8-21 cap, PO, l MG Oral 13:04: BID, # 90 Karen nn Capsule 00 cap, 0 [Colace] Refill(s), Pharmacy: [facility] #[id number] tramadol Yes 50 mg = 1 Du erika hydrochlori 8-21 tab, PO, l de 50 MG 13:04: Q8H, PRN Karen nn Oral Tablet 00 Pain, X 20 day, # 60 tab, 0 Refill(s) rosuvastati No Notes: Du erika n 8-21 Same as l 02:00: Crestor [place] 00 Entereg 2018-0 No Notes: Memoria 8-21 Same as: l 02:00: Entereg Stephen 00 Maximum of 15 doses Alert Restricted medication Alvimopan (Entergen) order form must be completed prior to dispensing . ceFAZolin + 2018-0 No Notes: Du erika sterile 02-03 (Same As: l water 10 mL 00:00: Ancef, Herm chano Kefzol) MEDICATION WASTE Product Size: 1000 mg Product Wasted: ___ mg Hydralazine 2019-0 No 10 mg, Du erika 02-02 Route: l 17:57: IVP, Stephen 00 Q20Min, Dosing Weight 124.545, kg, PRN Elevated BP, Start date: 02/02/19 12:57:00 CDT, Duration: 2 doses or times, Stop date: Limited # of times Labetalol 2018-0 No 10 mg, Memori a 02-02 Route: l 17:57: IVP, [place] 00 Q5Min, Dosing Weight 124.545, kg, PRN Elevated BP, Start date: 02/02/19 12:57:00 CDT, Duration: 5 doses or times, Stop date: Limited # of times Metoprolol 0 No 1 mg, Memori a 02-02 Route: l 17:57: IVP, [place] 00 Q5Min, Dosing Weight 124.545, kg, PRN Other -See Comment, Start date: 02/02/19 12:57:00 CDT, Duration: 5 doses or times, Stop date: Limited # of times Ketorolac 2018-0 No 30 mg, Memori a 02-02 Route: l 17:57: IVP, ONCE, Dosing Weight 124.545, kg, Start date: 02/02/19 12:57:00 CDT, Stop date: 02/02/19 12:57:00 CDT Acetaminoph 2019-0 No 1,000 mg, M emoria en 02-02 Route: PO, l 17:57: Drug form: TAB, ONCE, Dosing Weight 124.545, kg, PRN Pain Score 1-3, Start date: 02/02/19 12:57:00 CDT Ibuprofen 2019-0 No 600 mg, Memor ia 8-20 Route: PO, l 17:57: Drug form: Stephen 00 TAB, Q6H, Dosing Weight 124.545, kg, PRN Pain Score 1-3, Start date: 02/02/19 12:57:00 CDT, Duration: 30 day, Stop date: 03/04/19 12:56:00 CDT Fentanyl 2019-0 No 25 Memoria 8-20 microgram, l 17:57: Route: [place] 00 IVP, Q5Min, Dosing Weight 124.545, kg, PRN Pain Score 4-6, Priority: Routine, Start date: 02/02/19 12:57:00 CDT, Duration: 4 doses or times, Stop date: Limited # of times Hydromorpho 2019-0 No 0.5 mg, Mem oria ne 02-02 Route: l 17:57: IVP, [place] 00 Q5Min, Dosing Weight 124.545, kg, PRN Pain Score 7-10, Start date: 02/02/19 12:57:00 CDT, Duration: 4 doses or times, Stop date: Limited # of times Flumazenil 2019-0 No 0.2 mg, Du erika 02-02 Route: l 17:57: IVP, PRN, Dosing Weight 124.545, kg, PRN Benzodiaze pine Reversal, Initial dose, Start date: 02/02/19 12:57:00 CDT, Duration: 30 day, Stop date: 03/04/19 12:56:00 CDT Naloxone 2019-0 No 0.4 mg, Memori a 02-02 Route: l 17:57: IVP, Stepehn 00 Q2MIN, Dosing Weight 124.545, kg, PRN Narcotic Reversal, Start date: 02/02/19 12:57:00 CDT, Duration: 8 doses or times, Stop date: Limited # of times Diphenhydra 2019-0 No 12.5 mg, Me moria mine 02-02 Route: l 17:57: IVP, Drug form: INJ, Q6H, Dosing Weight 124.545, kg, PRN Itching, Start date: 02/02/19 12:57:00 CDT, Duration: 30 day, Stop date: 03/04/19 12:56:00 CDT Meperidine No 12.5 mg, Mem oria 02-02 Route: l 17:57: IVP, Q30Min, Dosing Weight 124.545, kg, PRN Other -See Comment, For shivering, Start date: 02/02/19 12:57:00 CDT, Duration: 2 doses or times, Stop date: Limited # of times Ondansetron No 4 mg, Memor ia 02-02 Route: l 17:57: IVP, ONCE, Dosing Weight 124.545, kg, PRN Nausea & Vomiting, Start date: 02/02/19 12:57:00 CDT Promethazin No 6.25 mg, Me moria e 02-02 Route: l 17:57: IVPB, ONCE, Dosing Weight 124.545, kg, PRN Nausea & Vomiting, Start date: 02/02/19 12:57:00 CDT 72 HR No 1 patch, Memoria Scopolamine 02-02 Route: l 0.0139 17:57: TOP, Drug Tariq n MG/HR 00 Form: Transdermal ERFILM, Patch Dosing Weight 124.545, kg, ONCE, Apply behind ear. Avoid use in elderly., Start date: 02/02/19 12:57:00 CDT, Stop date: 02/02/19 12:57:00 CDT sugammadex No Route: IV, M emoria (ANES) 02-02 Drug form: l 17:51: SOLN, ONCE, Stop date: 02/02/19 12:51:00 CDT Acetaminoph No Notes: Max Memoria en 02-02 acetaminop l 17:00: hen = 4000mg/day (4 gm/day). (Same as: Tylenol) Methocarbam No Notes: Du erika ol 02-02 (Same l 17:00: as:Robaxin ) ondansetron No Route: IV, Memoria (ANES) 02-02 Drug form: l 16:58: INJ, ONCE, Stop date: 02/02/19 11:58:00 CDT acetaminoph 2019-0 No Route: IV, Memoria en (ANES) 8-20 Drug form: l 16:53: INJ, ONCE, Stop date: 02/02/19 11:53:00 CDT mannitol 2019-0 No Route: IV, Mem oria 25% 8-20 Drug form: l intravenous 15:57: INJ, ONCE, solution Stop date: (ANES) 02/02/19 10:57:00 CDT phenylephri 2019-0 No Route: IV, Memoria ne (ANES) 8-20 Drug form: l 15:16: INJ, ONCE, Stop date: 02/02/19 10:16:00 CDT dexamethaso 2019-0 No Route: IV, Memoria ne (ANES) 8-20 Drug form: l 15:05: INJ, ONCE, Stop date: 02/02/19 10:05:00 CDT ciprofloxac 2019- No Route: IV, Memoria in (ANES) 8-20 Drug form: l 14:56: INJ, ONCE, Stop date: 02/02/19 9:56:00 CDT ceFAZolin 2019-0 No Route: IV, Me moria (ANES) 8-20 Drug form: l 14:56: INJ, ONCE, Stop date: 02/02/19 9:56:00 CDT rocuronium 2019-0 No Route: IV, M emoria (ANES) 8-20 Drug form: l 14:40: INJ, ONCE, Stop date: 02/02/19 9:40:00 CDT lidocaine 2019-0 No Route: IV, Me moria (ANES) 8-20 Drug form: l 14:35: INJ, ONCE, Stop date: 02/02/19 9:35:00 CDT propofol 2019-0 No Route: IV, Mem oria (ANES) 8-20 Drug form: l 14:35: INJ, ONCE, Stop date: 02/02/19 9:35:00 CDT midazolam 2019-0 No Route: IV, Me moria (ANES) 8-20 Drug form: l 14:09: SOLN, ONCE, Stop date: 02/02/19 9:09:00 CDT Docusate No Notes: Memoria Sodium 100 8-20 (Same as: l MG Oral 14:00: Colace) [place] Capsule 00 (Do Not [Colace] Crush) [facility], No Notes: Du erika [facility] 8-20 (Same as: l 14:00: Senokot) Stephen 00 Calcium No 1,000 mL, Memor ia Chloride 8-20 Rate: 75 l 0.0014 13:12: ml/hr, [place] MEQ/ML / 00 Infuse Potassium over: 13.3 Chloride hr, Route: 0.004 IV, Dosing MEQ/ML / Weight Sodium 124.545 Chloride kg, Total 0.103 Volume: MEQ/ML / 1,000, Sodium Start Lactate date: 0.028 02/02/19 MEQ/ML 8:12:00 Injectable CDT, Solution Duration: 1 day, Stop date: 02/03/19 8:11:00 CDT, 2.46, m2, 0 dexmedetomi No Route: IV, Memoria dine (ANES) 8-20 Drug form: l 200 13:10: INJ, Start Stephen microgram 00 date: 02/02/19 8:10:00 CDT, Stop date: 02/02/19 9:10:00 CDT Sodium No Route: IV, Memor ia Chloride 8-20 Drug form: l 0.9% IV 13:10: INJ, Start Herm chano (ANES) 100 00 date: mL + 02/02/19 ketAMINE 8:10:00 (ANES) 200 CDT, Stop mg date: 02/02/19 9:10:00 CDT Sodium No Route: IV, Memor ia Chloride 8-20 Total l 0.9% IV 13:03: Volume: Stephen (ANES) 1000 00 1,000, mL Start date: 02/02/19 8:03:00 CDT, Stop date: 02/02/19 9:03:00 CDT Cefazolin No Notes: Memori a 8-20 (Same As: l 13:00: Ancef, Stephen 00 Kefzol) MEDICATION WASTE Product Size: 1000 mg Product Wasted: ___ mg gabapentin No Notes: Memor ia 300 MG Oral 02-02 (Same as: l Capsule 13:00: Neurontin) Herm heparin No Notes: Memoria 02-02 porcine l 13:00: heparin Calcium No 1,000 mL, Memor ia Chloride 02-02 Rate: 75 l 0.0014 12:59: ml/hr, [place] MEQ/ML / 00 Infuse Potassium over: 13.3 Chloride hr, Route: 0.004 IV, Dosing MEQ/ML / Weight Sodium 124.545 Chloride kg, Total 0.103 Volume: MEQ/ML / 1,000, Sodium Start Lactate date: 0.028 02/02/19 MEQ/ML 7:59:00 Injectable CDT, Solution Duration: 30 day, Stop date: 03/04/19 7:58:00 CDT, 2.46, m2, 0 oxybutynin No Notes: Memor ia - Same as: l 12:59: Ditropan) Hydralazine No Notes: Du erika 02-02 (Same as: l 12:59: Apresoline ) Push over 5 minutes Dilaudid No Notes: Memoria 02-02 Same as: l 12:59: Dilaudid Lactated No Route: IV, Mem oria Ringers 02-02 Total l Injection 12:30: Volume: Karen nn IV (ANES) 00 1,000, 1000 mL Start date: 02/02/19 7:30:00 CDT, Stop date: 02/02/19 8:30:00 CDT Exparel No 266 mg, Memoria 02-02 Route: l 11:59: NERVE Stephen 00 BLOCK, Dosing Weight 124.545, kg, ONCE, Start date: 02/02/19 6:59:00 CDT, Stop date: 02/02/19 6:59:00 CDT Mannitol Yes Notes: Memoria 02-02 (Same as: l 11:59: Osmitrol) Infuse through 5 micron or smaller filter WASTE: F/P - Sink; E - Municipal Trash [employer] Exparel No Notes: Memoria 8-19 (Same as: l 23:00: Exparel) Stephen 00 NOT FOR IV use Postoperat bronwyn analgesia: Infiltrati on (local): Dose is based on surgical site and volume required to cover the area (in general, the maximum total dose is 266 mg). Bunionecto my: 7 mL into the tissues surroundin g the osteotomy and 1 mL into the subcutaneo us tissue of the surgical site (total dose = 8 mL [106 mg]) Hemorrhoid ectomy: 30 mL (20 mL vial diluted with 10 mL NS) divided and administer ed as 6 injections of 5 mL each (total dose = 30 mL [266 mg]) Interscale ne brachial plexus nerve block: Single dose: Total shoulder arthroplas ty or rotator cuff repair: 133 mg (10 mL) Hydrochloro 2018- Yes 1 tab, PO, Memoria thiazide 8-13 Daily, 0 l 12.5 MG / 14:53: Refill(s) Her ken valsartan 00 320 MG Oral Tablet neomycin No 1,000 mg = Mem oria 500 mg oral 8-13 2 tab, PO, l tablet 13:47: TID, take Tariq n 00 2 tablets at 4pm, 5pm, 10pm day before surgery, X 1 day, # 6 tab, 0 Refill(s), Pharmacy: [facility] #[id number] Metronidazo 2018-0 No 500 mg = 1 Memoria le 500 MG 8-13 tab, PO, l Oral Tablet 13:47: Q8H, take H ermann 00 1 tablet at 4pm, 5pm, 10pm day before surgery, X 1 day, # 3 tab, 0 Refill(s), Pharmacy: [facility] #[id number] gabapentin 2018- Yes 600 mg = 1 M emoria 600 MG Oral 8-13 tab, PO, l Tablet 13:47: Daily, 3 Stephen 00 hours prior to surgery, # 1 tab, 0 Refill(s), Pharmacy: [facility] #[id number] methocarbam 2018-0 No 750 mg = 1 Memoria ol 750 mg 8-13 tab, PO, l oral tablet 13:47: Daily, Herm chano 00 take 3 hours prior to surgery, X 1 day, # 1 tab, 0 Refill(s), Pharmacy: [facility] #[id number] celecoxib 2019-0 Yes 200 mg = 1 Me moria 200 MG Oral 8-13 cap, PO, l Capsule 13:47: Daily, [place] [Celebrex] 00 take 3 hours prior to surgery, # 1 cap, 0 Refill(s), Pharmacy: [facility] #[id number] Valsartan-H Valsartan-H Yes Noam [address] [facility] ydrochlorot ydrochlorot [facility] - hiazide hiazide [facility] Rosuvastati Rosuvastati Yes Noam [address] [facility] n Calcium n Calcium [facility] - [facility] Synjardy XR Synjardy XR Yes Noam [address] [facility] Vital Signs Vital Name Observation Time Observation Value Comments Source Height 2019-02-12 15:30:00 170.18 cm [facility] Weight 2019-02-12 15:30:00 [facility] BMI Calculated 2019-02-12 15:30:00 Memori al Stephen Temperature Oral (F) 2019-02-03 13:23:00 98.2 F [facility] Heart Rate 2019-02-03 13:23:00 [facility] [place] Systolic (mm Hg) 2019-02-03 13:23:00 Du rial Stephen Diastolic (mm Hg) 2019-02-03 13:23:00 Mem orial [place] Respitory Rate 2019-02-03 13:23:00 Memori al Stephen Respitory Rate 2019-02-03 12:59:00 Memori al [place] Temperature Oral (F) 2019-02-03 08:29:00 98.6 F [facility] [place] Heart Rate 2019-02-03 08:29:00 [facility] [place] Respitory Rate 2019-02-03 08:29:00 Memori al [place] Systolic (mm Hg) 2019-02-03 08:29:00 Du rial Stephen Diastolic (mm Hg) 2019-02-03 08:29:00 Mem orial Stephen Temperature Oral (F) 2019-02-03 03:59:00 98.4 F [facility] [place] Heart Rate 2019-02-03 03:59:00 [facility] Stephen Systolic (mm Hg) 2019-02-03 03:59:00 Du rial [place] Diastolic (mm Hg) 2019-02-03 03:59:00 Mem orial Stephen Height 2019-02-02 21:11:00 170.18 cm [facility] [place] Weight 2019-02-02 21:11:00 [facility] BMI Calculated 2019-02-02 21:11:00 Memori al [place] Height 2019-01-26 14:52:00 170.18 cm [facility] Stephen Weight 2019-01-26 14:52:00 [facility] Stephen BMI Calculated 2019-01-26 14:52:00 Memori al [place] Height 2019-01-08 13:53:00 170.18 cm [facility] [place] Weight 2019-01-08 13:53:00 [facility] Stephen BMI Calculated 2019-01-08 13:53:00 Memori al Stephen Weight 2018-12-29 12:45:00 [facility] Stephen BMI Calculated 2018-12-29 12:45:00 Memori al [place] Height 2018-12-29 12:45:00 170.18 cm [facility] Stephen Procedures Procedure Date / Time Performing Clinician Source Performed Partial nephrectomy 2019-02-02 05:00:00 [facility] Stephen Knee joint 2008-06-16 00:00:00 Oscar ken operation<sup>1</sup> Cholecystectomy 1989-06-16 00:00:00 Oscar ken Tonsillectomy 1967-06-16 00:00:00 Oscar ken Encounters Start End Encounter Admission Attending Care Care Encounter Source Date/Time Date/Time Type Type Clinicians Facility Department ID 2020-05-16 2020-05-16 [facility] [id number] 2020-05-08 2020-05-08 Outpatient [facility] [id number] [facility] 2020-02-08 2020-02-08 [facility] [id number] [facility] 08:00:00 08:00:00 [facility] l Medicine Outpati ent Clinics 2019-11-17 2019-11-17 [facility] [id number] [facility] 14:50:00 14:50:00 [facility] Medicine Outpati ent Clinics 2019-11-09 2019-11-09 [facility] [id number] 08:00:00 08:00:00 t [place] [facility] [facility] - IRI [facility] Medicine Outpati ent Clinics 2019-10-11 2019-10-11 [facility] [id number] [facility] 08:30:00 08:30:00 t [place] [facility] s - IRI [facility] Medicine Outpati ent Clinics 2019-09-13 2019-09-13 [facility] [id number] 08:30:00 08:30:00 [place] [employer] [facility] Medicine Outpati ent Clinics 2019-08-23 2019-08-23 [facility] [id number] 08[facility]00:00 08:00:00 t [employer] [facility] Medicine Outpati ent Clinics 2019-05-24 2019-05-24 [facility] [id number] 08:15:00 08:15:00 [place] [employer] [facility] Medicine Outpati ent Clinics 2019-05-12 2019-05-12 [facility] [id number] 16:14:00 16:14:00 [employer] [facility] Medicine Outpati ent Clinics 2019-02-17 2019-02-17 [facility] [id number] 08:45:00 08:45:00 [employer] [facility] Medicine Outpati ent Clinics 2019-02-12 2019-02-12 Outpatient FADI Niño MG [id number] 10:40:00 23:59:59 Josr Arora 2019-02-02 2019-02-03 Outpatient KASI Niño MHSE [id number] 07:59:00 10:21:00 Josr Arora 2019-02-02 2019-02-02 Inpatient U MHSE URO [id number] MH 07:59:00 05:15:00 Richi vargas [facility] 2019-01-26 2019-01-26 Outpatient VISIT, [facility] [id number] 08:30:00 23:59:59 NURSE UAHAI 2019-01-08 2019-01-08 Outpatient [place], [facility] [id number] 09:00:00 23:59:59 Josr Arora 2018-12-29 2018-12-29 Outpatient [place], [facility] [id number] 06:41:00 23:59:00 Josr Arora 2018-12-29 2018-12-29 Outpatient [facility]SE URO [id number] MH 06:41:00 06:41:00 [facility] 2018-12-08 2018-12-08 [facility] [id number] 10:00:00 10:00:00 [facility] Results Test Description Test Time Test Comments Results Result Comments Source ELECTROLYTES 2019-02-03 10.1 [facility] Her ken 10:26:00 ELECTROLYTES 2019-02-03 134 [facility] Her ken 10:26:00 ELECTROLYTES 2019-02-03 11 [facility] Her ken 10:26:00 ELECTROLYTES 2019-02-03 1.11 [facility] Her ken 10:26:00 ELECTROLYTES 2019-02-03 142 [facility] Her ken 10:26:00 ELECTROLYTES 2019-02-03 4.1 [facility] Her ken 10:26:00 ELECTROLYTES 2019-02-03 109 [facility] Her ken 10:26:00 ELECTROLYTES 2019-02-03 27 [facility] Her ken 10:26:00 ELECTROLYTES 2019-02-03 8.2 Memorial Her ken 10:26:00 ELECTROLYTES 2019-02-03 74 [facility] Her ken 10:26:00 HEMATOLOGY 2019-02-03 13.3 Memorial Karen nn 10:26:00 HEMATOLOGY 2019-02-03 4.04 Memorial Karen nn 10:26:00 HEMATOLOGY 2019-02-03 12.9 Memorial Karen nn 10:26:00 HEMATOLOGY 2019-02-03 38.6 Memorial Karen nn 10:26:00 HEMATOLOGY 2019-02-03 95.7 Memorial Karen nn 10:26:00 HEMATOLOGY 2019-02-03 10:26:00 Test Item Value Reference Range Interpretation Comme nts MCH (test code = MCH) 32.0 pg 27.0-31.0 [facility] ClcyhjqJONKHPBQLY7563-52-71 10:26:0033.4[facility] HermannHEMATOLOGY 2019-02-03 10:26:0013.8[facility] UdjgfzbDUYOMNJUUO1614-52-62 10:26:38873Zaczapjs TzyrofxKMYVBHOCUJ1291-32-81 10:26:008.9[facility] LdhwpcmHWVSDAWDER6718-63-63 10:26:0076.4[facility] EglkunaJUDVVNZRNT6850-88-94 10:26:0015.9[facility] Stephen VIKZAILIIC7272-60-85 10:26:006.9[facility] UupmeczUSJOLIRDEU4478-96-11 10:26:000.6 [facility] NwwzcblWFGOHUPBKA8395-41-15 10:26:000.2[facility] HermannHEMATOLOGY 2019-02-03 10:26:0010.2[facility] NhdynupYKVDBYXBIT5396-83-07 10:26:002.1[facility] BruywfeWPKHOTGHOT5363-08-46 10:26:000.9[facility] NlkyeegLQTLWQLIQE0850-00-38 10:26:000.1[facility] HermannCHEM AGHBO3756-61-50 17:49:52369Etlvvtxo HermannCHEM MAFYK7828-59-93 17:49:0015[facility] HermannCHEM XPQYJ9001-99-60 17:49:001.19 [facility] HermannCHEM TRJIC8003-79-20 17:49:35075Loysyxel HermannCHEM PANEL 2019-02-02 17:49:004.1[facility] HermannCHEM GXVWS1276-83-71 17:49:82880Tictasak HermannCHEM OUITH1671-02-70 17:49:0022[facility] HermannCHEM DNQDV9488-08-95 17:49:007.8[facility] HermannCHEM PVABO4300-53-75 17:49:0068[facility] HermannCHEM XYZHF6598-16-01 17:49:0013.1[facility] HphearvIZPPZLTINX2060-47-04 17:49:0014.4 [facility] MqetcokBQGHBUDIYM2338-30-31 17:49:0043.4[facility] HermannBLOOD BANK DEXAGOG3260-55-34 15:08:00Negative (8/13/19 10:08 AM)[facility] [place] YQKUBZNDVTGE1262-01-56 15:08:0011.8[facility] IlzdhmgSCHLGANIJGRI9705-59-78 15:08:62669Rfhhdxqi YnacdcmZVPDVMUWIWQZ7185-28-73 15:08:0019[facility] Stephen AQUSNSQLGVNZ8846-13-97 15:08:001.05[facility] VcxrglsADMXSWYJXOSP7508-61-10 15:08:85642Ssiwowev UslilqbARHVUMIKAWNG4429-27-21 15:08:003.8[facility] [place] QBDCYSLEKYDA4220-36-16 15:08:02848Tkvcbzkq CgsmboaDEDPRHTFHXLV1878-96-32 15:08:0029[facility] SddewsoRFKNAKOPPILP6371-42-86 15:08:009.0[facility] [place] JBLRSNOJVYHG2268-13-71 15:08:0080[facility] VmxtjoeVLOCPDDGBT9962-56-42 15:08:00 9.0[facility] WqkiyexMPXNPRBKUM6361-85-35 15:08:004.52[facility] HermannHEMATOLOGY 2019-01-26 15:08:0014.5[facility] HjttraqGMRBCKXSEP9853-51-27 15:08:0042.1[facility] GmvxgegYEJPVZLGJA7116-07-91 15:08:0093.2[facility] IokhgbxMAVNBWIEWN3918-80-45 15:08:00 Test Item Value Reference Range Interpretation Comments MCH (test code = MCH) 32.1 pg 27.0-31.0 [facility] CjojelsMGRYPCOAHK6609-23-17 15:08:0034.4[facility] HermannHEMATOLOGY 2019-01-26 15:08:0013.8[facility] UzqyhrkPVLWRPEDZK6646-20-09 15:08:56119Kbxfhopm VyvccitSYUQCZMAWX9130-40-61 15:08:009.1[facility] MjejjwyAZWNWQFKDS7797-36-04 15:08:00 Test Item Value Reference Range Interpretation Comments PT (test code = PT) 12.8 s 12.0-14.7 [facility] VathbkbUTQUJIAJIY4629-15-59 15:08:00 Test Item Value Reference Range Interpretation Comments PTT (test code = PTT) 29.5 s 22.9-35.8 [facility] UxzgbyjUOKBKSBBKB6624-58-27 15:08:00 Test Item Value Reference Range Interpretation Comments INR (test code = INR) 0.98 1 0.85-1.17 [facility] SewxvezXTQKKEONBO9987-47-97 15:08:0064.0[facility] HermannHEMATOLOG[facility] 2019-01-26 15:08:0025.7[facility] ZwqydlcTGKHQKWRRO0316-15-86 15:08:006.8[facility] GbuqakqIKAMYQVWTE3110-12-24 15:08:003.2[facility] AofzkazOOVRLSBGIQ8301-82-82 15:08:000.3[facility] XxxpgskBLDWWHYXMX5384-80-39 15:08:005.7[facility] NNZPYJGKAX1292-91-87 15:08:002.3[facility] YqvlzreWLRQVPUFSM7526-67-59 15:08:000.6 [facility] BximzjhYEAVKVYUAD0150-58-69 15:08:000.3[facility] 2019-01-26 15:08:00Clear (01/26/19 10:08 AM)[facility] 2019-01-26 15:08:00 Test Item Value Reference Range Interpretation Comments UA Spec Grav (test code = UA Spec 1.009 1 Grav) [facility] [id number] 15:08:00 Test Item Value Reference Range Interpretation Comments UA pH (test code = UA pH) 8.0 1 5.0-8.0 [facility] [id number] 15:08:00Negative *NA*(01/26/19 10:08 AM)[facility] [id number] 15:08:00Negative (01/26/19 10:08 AM) [facility] XVLKH9862-81-62 15:08:00Negative (01/26/19 10:08 AM) [facility] VTTGO4230-18-52 15:08:00Negative (01/26/19 10:08 AM) [facility] ZZVKF3733-11-84 15:08:001[facility] TABKL5530-33-32 15:08:002[facility] HZMXXID6424-96-09 14:54:00 Product available (01/26/19 9:54 AM)[facility]- MRI ABDOMEN W/CONT 2018-12-04 09:33:00 FAX: Adryan Coreas MD [phone] [place]: St: DIS Name: JIM NAGY [facility] [place] : 1965 Age/S: 53/M [address] [place] [address] Unit#: [id number] Loc: .[address] [place] [address] Phys: Adryan Marinelli MD Acct: [id number] Dis Date: [id number] Status: DIS IN PHONE #: [phone] Exam Date: 12/03/2018 171 FAX #: [phone] Reason: renal mass protocol. EXAMS: CPT CODE: [id number] MRI ABDOMEN W/CONT 51924 PROCEDURE: MRI ABDOMEN WITH AND WITHOUT CONTRASTINDICATION: 53-year-old male with right renal mass identified in the workup of sepsis and urinary tract infection. COMPARISON: Current noncontrast CT and renal ultrasound TECHNIQUE: Pre-and postcontrast dynamic T1-weighted gradient echo and T2-weighted sequenceswere acquired. IV CONTRAST: 25 mL Dotarem FINDINGS: LIVER: Incompletely imaged on all pulse sequences in this examination tailored for survey of the kidneys. Otherwise, normal hepatic contours. Normal T2 signal intensity. Marked diffuse drop in T1 signalintensity out of phase with sparing adjacent to the IVC and michelle hepatis. There are small right lobe lesions demonstrating marked T2 hyperintensity with lobulated, otherwise circumscribed margins. Lesion in segment 8 measures 1.7 x 1.2 x 1.1 cm. Lesion in segment 6 measures1.6 x 1.1 x 1.3 cm. Subcentimeter lesion with similar signal characteristics segment 8, 0.8 cm. These levels were not included on the post contrast dynamic series, demonstrated on the delayed postcontrast coronal series as lesions of marked T1 hypointensity. Imaging featurescompatible with benign cysts. No suspicious liver lesions. The portal venous system is patent. GALLBLADDER: Surgically absent SPLEEN: Enlarged, measuring 14.6 x 5.9 x 14.1 cm, splenic index 1214 mL. PANCREAS: Normal. ADRENAL GLANDS:Normal. KIDNEYS: Exophytic lesion ventral cortex lower pole right kidney corresponding to findings at CT and ultrasound measures 3.3 x 3.3 x 2.4 cm. Heterogeneous T2 signal intensity with components of marked decreased and moderate increased T2 signal. No discrete cystic component. Heterogeneous T1 signal intensity with majority of the lesion hypointenseto renal cortex. Small T1 hyperintense components which persist with fat saturation. No lipid signal intensity or lipid attenuation components by CT. Following contrast administration, there is subtle amorphous enhancement of internal components with majority of the lesion remaining T1 hypointense. Regions of interest PAGE 1 Signed Report (CONTINUED) FAX: Adryan Coreas MD [phone] Wittmann: St: DIS-------- Name: JIM NAGY [facility] : 1965 Age/S: 53/M [address] [place] [address] Unit #: [id number] Loc: G.6604 [place] [address] Phys: Adryan Marinelli MD Acct: [id number] Dis Date: Status: DIS IN PHONE #: [phone] Exam Date: 12/03/2018 1717 FAX #: [phone] Reason: renal mass protocol. EXAMS: CPT CODE: [id number] MRI ABDOMEN W/CONT 48280 <Continued> demonstrates mild delayed enhancement pattern. These changes are confirmed on subtraction imaging. No discrete nodule nodular component. There is no evidence of restricted diffusion within the lesion. No other suspicious renal mass. Partially exophytic lobulated cyst lower pole right kidney measuring 5 x 5 x 4.6 cm without enhancing component. Smaller nonenhancing renal corticalcysts bilateral. No hydronephrosis. No perinephric fluid collection. The renal veins are patent. Circumaortic left renal vein, anatomic variant. RETROPERITONEUM: Normal. LYMPH NODES: No adenopathy. MARROW SIGNAL INTENSITY: Normal.Additional comments: No free intraperitoneal fluid. IMPRESSION: 1. Circumscribed predominantly exophytic right renal mass with signal characteristics compatible with chronic hemorrhagic lesion. Components of mild gradual internal enhancement. Lack of restricted diffusion supportive of benign lesion. Neoplasm is not excluded with papillary renal cell carcinoma included in the differential. 2. There is no evidence for regional extension of disease, renal venous invasion or metastatic disease in the visualized abdomen. 3. Incidental hepatic lesions compatible with benign cysts. 4. Hepatic steatosis. 5. Splenomegaly. SL: [id number] at 0933 Reported and signed by: Wilber Feng M.D. CC: Adryan Marinelli MD Technologist: RT Lety(R)(MRI) Trnscrd Date/Time/By: 12/04/2018 (0988) : By: [email or web address] Orig Print D/T: S: 12/04/2018 (1885) PAGE 2 Signed [id number] 2018-12-03 08:21:00 Test Item Value Reference Range Interpretation Comments HGBA1C% (test code = HGBA1C%) 6.4 %A1C 4.8-6.0 H COMPREHENSIVE METABOLIC [id number] 07:54:00 Test Item Value Reference Range Interpretation Comments SODIUM (test code = NA) 139 mEq/L 134-147 N POTASSIUM (test code = 3.5 mEq/L 3.4-5.0 N K) CHLORIDE (test code = 107 mEq/L 100-108 N CL) CARBON DIOXIDE (test 24 mEq/L 21-33 N code = CO2) ANION GAP (test code = 12 0-20 N GAP) GLUCOSE (test code = 115 mg/dL 70-110 H GLU) BLOOD UREA NITROGEN 13 mg/dL 7-18 N (test code = BUN) GLOMERULAR FILTRATION 87.6 90-95 L Units of measure = RATE (test code = GFR) ml/mi n/1.73 m2 CREATININE (test code = 0.9 mg/dL 0.6-1.3 N CREAT) TOTAL PROTEIN (test 6.6 g/dL 6.4-8.2 N code = PROT) ALBUMIN (test code = 2.80 g/dL 3.4-5.0 L ALB) CALCIUM (test code = 8.2 mg/dL 8.0-10.5 N CA) BILIRUBIN TOTAL (test 0.60 mg/dL 0.0-1.0 code = BILT) SGOT/AST (test code = 15 IUnit/L 15-37 N AST) SGPT/ALT (test code = 38 IUnit/L 15-65 N ALT) ALKALINE PHOSPHATASE 71 IUnit/L 20-125 N TOTAL (test code = ALKP) CBC W/AUTO [id number] 07:43:00 Test Item Value Reference Range Interpretation Comments WHITE BLOOD CELL (test code = 9.47 x10 3/uL 4.5-11.0 WBC) RED BLOOD CELL (test code = 4.45 x10 6/uL 4.00-5.60 N RBC) HEMOGLOBIN (test code = HGB) 14.1 g/dL 12.5-16.9 N HEMATOCRIT (test code = HCT) 44.8 % 37.5-50.7 N MEAN CELL VOLUME (test code = 100.7 fL 81.0-99.0 H MCV) MEAN CELL HGB (test code = MCH) 31.7 pg 27.0-33.0 N MEAN CELL HGB CONCETRATION 31.5 g/dL 33.0-37.0 L (test code = MCHC) RED CELL DISTRIBUTION WIDTH CV 13.2 % 11.5-14.5 N (test code = RDW) RED CELL DISTRIBUTION WIDTH SD 49.3 fL 37.0-54.0 N (test code = RDW-SD) PLATELET COUNT (test code = 159 x10 3/uL 150-400 N PLT) MEAN PLATELET VOLUME (test code 11.3 fL 7.0-9.0 H = MPV) NEUTROPHIL % (test code = NT%) 75.5 % 56.0-77.0 N IMMATURE GRANULOCYTE % (test 0.5 % 0.0-2.0 N code = IG%) LYMPHOCYTE % (test code = LY%) 14.0 % 14.0-32.0 N MONOCYTE % (test code = MO%) 7.7 % 4.8-9.0 N EOSINOPHIL % (test code = EO%) 1.7 % 0.3-3.7 N BASOPHIL % (test code = BA%) 0.6 % 0.0-2.0 N NUCLEATED RBC % (test code = 0.0 % 0-0 N NRBC%) NEUTROPHIL # (test code = NT#) 7.14 x10 3/uL 2.0-7.6 N IMMATURE GRANULOCYTE # (test 0.05 x10 3/uL 0.00-0.03 H code = IG#) LYMPHOCYTE # (test code = LY#) 1.33 x10 3/uL 1.0-3.8 N MONOCYTE # (test code = MO#) 0.73 x10 3/uL 0.1-0.8 N EOSINOPHIL # (test code = EO#) 0.16 x10 3/uL 0.0-0.2 N BASOPHIL # (test code = BA#) 0.06 x10 3/uL 0.0-0.2 N NUCLEATED RBC # (test code = 0.00 x10 3/uL 0.0-0.1 N NRBC#) MANUAL DIFF REQUIRED (test code NO = MDIFF) - US RETROPERITONEAL [id number] 18:22:00 Name: JIM NAGY [facility] : 1965 Age/S: 53 / M [address] [place] [address] Unit #: [id number] Loc: [facility] [id number] Phys: Adryan Marinelli MD Acct: [id number] Dis Date: Status: ADM IN PHONE #: [phone] Exam Date: 12/02/2018 1807 FAX #: [phone] Reason: possible renal mass EXAMS: CPTCODE: [id number] US RETROPERITONEAL COM [id number] PROCEDURE: RENAL ULTRASOUND INDICATION: Possible renal mass. Urinary tract infection. Sepsis. COMPARISON: 12/02/2017 CT abdomen TECHNIQUE: Sonographic evaluation ofthe kidneys and urinary bladder was performed. FINDINGS: Patient body habitus and overlying gas obscure visualization in areas. KIDNEYS: The right kidney measures 12.2 cm in length. 4.6 x 4.1 x 4.9 cm anechoic avascular cyst is seen correlating with the lower pole cyst on CT. Additional 1.2 x 1 x 1.1 cm cyst in the kidney is seen. However, there is an exophytic isodense mass with minimal internal vascularity identified measuring3.3 x 2.2 x 2.8 cm correlating with the mass seen on CT. This does not demonstrate definite cystic characteristics. The left kidney measures 12.6 cm in length. The kidney appears normal in morphology and echogenicity without hydronephrosis or cortical thinning. BLADDER: Bladder is empty. A small portion of the abdominal aorta is visualized. The aortic bifurcation into the common iliac arteries is obscured. The intrahepatic inferior vena cava is partially visualized. IMPRESSION: 1. Exophytic right renal mass seen on CT does not appear to represent a cyst. MRI renal mass protocol canbe obtained to assess for neoplasm. 2. 2 right renal cysts. SL: SG-H PAGE 1 Signed Report (CONTINUED) Name: JIM NAGY [facility] : 1965 Age/S: 53 / M [address] [place] [address] Unit #: [id number] Loc: [place]der[place] [address] Phys: Adryan Marinelli MD Acct: [id number] Dis Date: Status: ADM IN PHONE #: [phone] Exam Date: 12/02/2018 1804 FAX #: [phone] Reason: possible renal mass EXAMS: CPT CODE: [id number] [employer] [facility] [address] <Continued> at 182 Reported and signed by: Elvis Gage M.D. CC: Adryan Marinelli MD Technologist: Kuldip Murillo RDMS (AB) (OB) Trnscb Date/Time: 12/02/2018 (1821) [email or web address] Orig Print D/T: S: 12/02/2018 (1825) Probe: PAGE 2 Signed Report- CT ABD PELVIS W/O [id number] 16:38:00 Name: JIM NAGY [facility] : 1965 Age/S: 53 / M [address] [place] [address] Unit #: [id number] Loc: [facility] Phys: Adryan Marinelli MD Acct: [id number] Dis Date: Status: ADM IN PHONE #: [phone] Exam Date: 12/02/2018 1608 FAX #: [phone] Reason: uti andsepsis EXAMS: CPTCODE: [id number] CT ABD PELVIS W/O CONT 52187 PROCEDURE: CT ABDOMEN AND PELVIS WITHOUT CONTRAST INDICATION: Sepsis, urinary tract infection COMPARISON: None. TECHNIQUE: Helical imaging was performed diaphragm through the symphysis with multiplanar reconstructions. IV CONTRAST: None. GI CONTRAST: 10 mL Gastrografin diluted in water. CT imaging performed at this location utilizes radiation dose optimization techniques which include one or more of the following: -Automated exposure control -Adjustment of the mA and/or kV according to patient size -Use of iterative reconstruction technique CT Radiation Dose DLP 721 mGy-cm FINDINGS: This examination is limited for the evaluation of abdominal viscera and vascular structures due to lack of intravenous contrast. LOWER CHEST: The lung bases are clear. LIVER: There is severe hepatic steatosis. No focal hepatic abnormality. GALLBLADDER: Surgically absent. SPLEEN: Normal. PANCREAS: Normal. ADRENALS: Normal. KIDNEYS: No renal or ureteral stone, no hydronephrosis bilaterally. 2.8 cm hyperdense structure at the midpole of the right kidney does not meet criteria for a cyst by Hounsfield density measurement. Additionally, there is a 5.2 cm right lower pole renal cyst, likely septated. BOWEL: There is mild colonic diverticulosis, no CT evidence for diverticulitis. Small bowel is unremarkable. Stomach is unremarkable.PAGE 1 Signed Report (CONTINUED) Name: JIM NAGY [facility] : 1965 Age/S: 53 / M [address] [place] [address] Unit #: [id number] Loc: [place] [address] Phys: Adryan Marinelli MD Acct: [id number] Dis Date: Status: ADM IN PHONE #: [phone] Exam Date: 12/02/2018 1607 FAX #: [phone] Reason: uti and sepsis EXAMS: CPT CODE: [id number] CT ABD PELVIS W/O CONT 62352 <Continued> PERITONEUM: No free intraperitoneal fluid or air. RETROPERITONEUM: No adenopathy. The aorta is normal. PELVIS: No pelvic mass. There is mild inflammatory change surrounding the urinarybladder and prostate gland. MUSCULOSKELETAL: No acute abnormality. IMPRESSION: 1. Mild inflammatory change surrounding the urinary bladder and prostate gland. Cystitis and prostatitis differential considerations. 2. 2.8 cm mass density at the midpole right kidney does not meet criteria for cyst by Hounsfield density measurement. Cyst with internal hemorrhagic or proteinaceous debris and solid renal neoplasm differential considerations. Further options for imaging workup include renal ultrasound, as well as renal protocol CT or MRI. 3. Severe hepatic steatosis. 4. Previous cholecystectomy. 5. Mild colonic diverticulosis, no CT evidence for diverticulitis. SL: [id number] at 1638 Reported and signed by: Sloan Cummins M.D. CC: Adryan Marinelli MD Technologist:Myra Anne, RT(R) CTDI: DLP: Trnscb Date/Time: 12/02/2018 (1637) [email or web address] Orig Print D/T: S: 12/02/2018 (5180) PAGE 2 Signed Report PROCALCITONIN (PCT)2018-12-02 14:34:00 Test Item Value Reference Range Interpretation Comments PROCALCITONIN (PCT) 0.21 ng/mL 0.00-0.05 H PROCALCI TONIN (PCT) (test code = PROCAL) NORMAL RANGE (ADULT): <0.05 NG/ML. * a concentration < 0.5 ng/mL represent s a low risk of severe sepsis and/or septic s hock.* a concentration > 2 ng/mL represents a hi gh risk of severe seps is and/or septic shock.Neverthel ess, concentrations <0.5 ng/mL do not ex clude aninfection, on account of localized in fections (withoutsystemi c signs) which can be as sociated with such lowconcentratio ns, or a systemic infect ion in its initialstag es (< 6 hours). Further more, increased procalcitoninca n occur without infecti on. PCT concentrations between 0.5and 2.0 ng/m L should be interpreted taking into account thepatient's hi story. It is recommend ed to retest PCT with in6-24 hours if any concentrations <2 ng/mL are obtained. HEPATIC FUNCTION [id number] 12:43:00 Test Item Value Reference Range Interpretation Comments TOTAL PROTEIN (test code = PROT) 7.1 g/dL 6.4-8.2 N ALBUMIN (test code = ALB) 3.30 g/dL 3.4-5.0 L BILIRUBIN TOTAL (test code = BILT) 1.20 mg/dL 0.0-1.0 H BILIRUBIN DIRECT (test code = 0.30 MG/DL 0.0-0.30 N BILD) BILIRUBIN INDIRECT (test code = 0.90 MG/DL BILIND) SGOT/AST (test code = AST) 15 IUnit/L 15-37 N SGPT/ALT (test code = ALT) 39 IUnit/L 15-65 N ALKALINE PHOSPHATASE TOTAL (test 64 IUnit/L 20-125 N code = ALKP) PROTHROMBIN [id number] 12:42:00 Test Item Value Reference Range Interpretation Comments PROTHROMBIN TIME 14.4 SECONDS 9.3-12.9 H PATIENT (test code = PTP) INTERNATIONAL NORMAL 1.3 0.8-1.2 H TARGET RATIO (test code = INR BY IN DICATION INR) Indication INR1. Prophyl axis of venous thrombos is 2.0 - 3. 0 (orthopedic cony jorden), Prophylaxis of venous thrombos is (other than hig h-risk surgery), Lesley tment of Deep Vein Thrombosis/Pulm onary Embolism, Preve ntion of systemic emb olism - Tissue heart va lves, Acute Myocardia l Infarction (to prevent systemic embo lism), Valvular heart disease, Atri al Fibrillation, Bileaflet mecha nical valve in aortic position.2. Mec hanical prosthetic valv es (high risk), 2.5 - 3.5 Presence of Lupus Anticoagu lant or Antiphospholi pid Antibodies, Pre vention of systemic e mbolism - Acute Myocard ial Infarction (t o prevent recurre nt infarct). THROMBOPLASTIN TIME [id number] 12:42:00 Test Item Value Reference Range Interpretation Comments THROMBOPLASTIN TIME 27.5 Seconds 25.0-39.5 N Ther apeutic PARTIAL (test code = Range: 50.4 - 88.3 PTT) Seconds Effective 09/29/2018 CBC W/AUTO [id number] 12:30:00 Test Item Value Reference Range Interpretation Comments WHITE BLOOD CELL (test code = 17.33 x10 3/uL 4.5-11.0 H WBC) RED BLOOD CELL (test code = 4.79 x10 6/uL 4.00-5.60 N RBC) HEMOGLOBIN (test code = HGB) 14.8 g/dL 12.5-16.9 N HEMATOCRIT (test code = HCT) 46.0 % 37.5-50.7 N MEAN CELL VOLUME (test code = 96.0 fL 81.0-99.0 N MCV) MEAN CELL HGB (test code = 30.9 pg 27.0-33.0 N MCH) MEAN CELL HGB CONCETRATION 32.2 g/dL 33.0-37.0 L (test code = MCHC) RED CELL DISTRIBUTION WIDTH CV 12.7 % 11.5-14.5 N (test code = RDW) RED CELL DISTRIBUTION WIDTH SD 45.8 fL 37.0-54.0 N (test code = RDW-SD) PLATELET COUNT (test code = 197 x10 3/uL 150-400 N PLT) MEAN PLATELET VOLUME (test 11.1 fL 7.0-9.0 H code = MPV) NEUTROPHIL % (test code = NT%) 82.5 % 56.0-77.0 H IMMATURE GRANULOCYTE % (test 1.1 % 0.0-2.0 N code = IG%) LYMPHOCYTE % (test code = LY%) 8.5 % 14.0-32.0 L MONOCYTE % (test code = MO%) 7.3 % 4.8-9.0 N EOSINOPHIL % (test code = EO%) 0.2 % 0.3-3.7 L BASOPHIL % (test code = BA%) 0.4 % 0.0-2.0 N NUCLEATED RBC % (test code = 0.0 % 0-0 N NRBC%) NEUTROPHIL # (test code = NT#) 14.30 x10 3/uL 2.0-7.6 H IMMATURE GRANULOCYTE # (test 0.19 x10 3/uL 0.00-0.03 H code = IG#) LYMPHOCYTE # (test code = LY#) 1.47 x10 3/uL 1.0-3.8 N MONOCYTE # (test code = MO#) 1.26 x10 3/uL 0.1-0.8 H EOSINOPHIL # (test code = EO#) 0.04 x10 3/uL 0.0-0.2 N BASOPHIL # (test code = BA#) 0.07 x10 3/uL 0.0-0.2 N NUCLEATED RBC # (test code = 0.00 x10 3/uL 0.0-0.1 N NRBC#) MANUAL DIFF REQUIRED (test NO code = MDIFF) URINALYSIS [id number] 12:29:00 Test Item Value Reference Range Interpretation Comments UA COLOR (test code = COLU) OSIEL YEL/STRAW A UA APPEARANCE (test code = APPU) CLOUDY CLEAR A UA GLUCOSE DIPSTICK (test code = 1+ NEGATIVE A DGLUU) UA BILIRUBIN DIPSTICK (test code NEGATIVE NEGATIVE = BILU) UA KETONE DIPSTICK (test code = 1+ NEGATIVE A KETU) UA SPECIFIC GRAVITY (test code = 1.023 1.005-1.030 N SGU) UA BLOOD DIPSTICK (test code = 3+ NEGATIVE A JUDE) UA PH DIPSTICK (test code = AKILA) 5.0 5.0-7.0 N UA PROTEIN DIPSTICK (test code = 2+ NEGATIVE A PROU) UA UROBILINIOGEN DIPSTICK (test 0.2 mg/dL 0.2-1.0 code = URO) UA NITRITE DIPSTICK (test code = POSITIVE NEGATIVE A MEGAN) UA LEUKOCYTE ESTERASE DIPSTICK 2+ NEGATIVE A (test code = LEUU) UA WBC (test code = WBCU) >50 WBC/HPF 0-3 A UA RBC (test code = RBCU) >50 RBC/HPF 0-3 A UA BACTERIA (test code = BACU) 1+ /HPF NONE SEEN A UA SQUAMOUS CELLS (test code = 0-5 /HPF NONE SEEN SQU) UA HYALINE CAST (test code = 11-20 /LPF NONE SEEN HYALU) UA MUCUS (test code = MUCU) 4+ /LPF NONE SEEN A COMMENTS: Clean CatchUA CULT [id number] 12:29:00 Test Item Value Reference Range Interpretation Comments UA CULTURE NEEDED? YES,WBC>10 & Culture Chk Criteria met, (test code = EPI<=25 Criteria Urine Cultu re UACULT) in-process. COMMENTS: Clean Catch- XR CHEST 2 [id number] 12:21:00 FAX: Gabriela Horton MD [phone] Wittmann: St: REG Name: JIM NAGY [facility] [place] : 1965 Age/S: 53/M [address] [place] [address] Unit#: [id number] Loc: [place] [address] Phys: Gabriela Espinoza MD Acct: [id number] Dis Date: Status: REG ER PHONE #: [phone] Exam Date: 12/02/2018 1221 FAX #: [phone] Reason: acute SOB EXAMS: CPT CODE: [id number] XR CHEST 2 V 55700 EXAM: XR CHEST 2 VIEWS DATE: 12/02/2018 11:37 AM : 1965; Age: 53 years y/o Male INDICATION: acute SOB COMPARISON: N one. TECHNIQUE: PA and lateral chest radiographs. FINDINGS: Lines, tubes and hardware: None. Lungs and pleura: The lungs are clear. No pleural effusion. Heart and mediastinum: The heart size is normal for technique. The mediastinal contours are normal. Pulmonary vascularity is normal. IMPRESSION: No acute cardiopulmonary process. SL: [id number] at 1221 Reported and signed by: Kindra Morelos D.O. CC: Gabriela Espinoza MD Technologist: RT Michelle(Fransico) Trnscrd Date/Time/By: 12/02/2018 (2158) : By: [email or web address] Orig Print D/T: S: 12/02/2018 (7843) PAGE 1 Signed ReportTROPONIN-I [id number] 12:14:00 Test Item Value Reference Range Interpretation Comments TROPONIN-I RAPID 0.00 ng/mL 0.00-0.08 N Performed b y certified (test code = section plotter operator at [facility] Negative: <= 0.0 8 Positive: >= 0.09An elevated troponin value alone is not sufficient todi agnose a myocardial infa rction. Rather, the pat ient sclinical prese ntation (history, physi toby exam) and ECGshould b e used in conjunction wit h troponin in thediagnosti c evaluation of s uspected myocardial infa rction. Aserial samplin g protocol is recommended to facilitate the identification of temporal changes in trop onin levels characteristic of [place]. LACTIC ACID [id number] 12:08:00 Test Item Value Reference Range Interpretation Comments LACTIC ACID POC 1.7 MMOL/L 0.90-1.70 N Performed by certified (test code = LACTP) section plotter operator at [facility] CHEMISTRY 8 [id number] 12:08:00 Test Item Value Reference Range Interpretation Comments ISTAT-SODIUM (test code = NAP) MMOL/L 134-147 ISTAT-POTASSIUM (test code = KP) MMOL/L 3.4-5.0 ISTAT-CHLORIDE (test code = CLP) MMOL/L 100-108 ISTAT CARBON DIOXIDE (test code = mmol/L 21-33 N ISTAT-CO2) ISTAT CALCIUM IONIZED (test code = MG/DL 1.12-1.32 ISTAT-ALBERTO) ISTAT-GLUCOSE (test code = GLUP) MG/DL 70-110 H ISTAT-BUN (test code = BUNP) MG/DL 7-18 N BEDSIDE CREATININE (test code = MG/DL 0.6-1.3 N CREATBED) GLOMERULAR FILTRATION RATE POC 82 ML/MIN (test code = GFRBED) CHEMISTRY 8 [id number] 12:08:00 Test Item Value Reference Range Interpretation Comments ISTAT-SODIUM (test 138 MMOL/L 134-147 N code = NAP) ISTAT-POTASSIUM (test 3.4 MMOL/L 3.4-5.0 N code = KP) ISTAT-CHLORIDE (test 100 MMOL/L 100-108 N Perform ed by code = CLP) certified opera tor at [facility] ISTAT CARBON DIOXIDE 23.0 mmol/L 21-33 N (test code = ISTAT-CO2) ISTAT CALCIUM IONIZED 1.09 MG/DL 1.12-1.32 L (test code = ISTAT-ALBERTO) ISTAT-GLUCOSE (test 161 MG/DL 70-110 H code = GLUP) ISTAT-BUN (test code = 10 MG/DL 7-18 N BUNP) BEDSIDE CREATININE 1.0 MG/DL 0.6-1.3 N (test code = CREATBED) GLOMERULAR FILTRATION 82 ML/MIN RATE POC (test code = GFRBED)
[2020-05-21] MEDS ORDERED: KETOROLAC 30 MG/ML INJ ONE (09:21)
[2020-05-21] MEDS ORDERED: dexAMETHasone 10 MG/ML VIAL ONE (09:21)
--- NOTE | 2020-05-21 09:21 | ER ---
Nurse's Notes [facility] Name: Tom Nagy Age: 54 yrs Sex: Male : 1965 Arrival Date: 05/21/2020 Time: 08:44 Bed 5 Private MD: Diagnosis: Radiculopathy, lumbosacral region;Muscle spasm of back Presentation: 05/21 08:50 Chief complaint: Patient states: R low back pain that began yesterday morning. Radiates ss down R leg. No known injury. Coronavirus screen: Client denies travel out of the [place] in the last 14 days. Ebola Screen: Patient denies exposure to infectious person. Patient denies travel to an Ebola-affected area in the 21 days before illness onset. Initial Sepsis Screen: Does the patient meet any 2 criteria? No. Patient's initial sepsis screen is negative. Does the patient have a suspected source of infection? No. Patient's initial sepsis screen is negative. Risk Assessment: Do you want to hurt yourself or someone else? Patient reports no desire to harm self or others. Onset of symptoms was May 20, 2020. 08:50 Acuity: GOMEZ 4 ss 08:51 Method Of Arrival: Ambulatory sv Historical: - Allergies: 08:55 Sulfa (Sulfonamide Antibiotics); ss - Immunization history:: Adult Immunizations up to date. - Social history:: Smoking status: Patient denies any tobacco usage or history of. - Family history:: not pertinent. - Hospitalizations: : No recent hospitalization is reported. Screenin:50 Abuse screen: Denies threats or abuse. Denies injuries from another. Nutritional sv screening: No deficits noted. Tuberculosis screening: No symptoms or risk factors identified. Fall Risk None identified. Assessment: 08:55 Reassessment: Pt reports that his pain is aggravated by walking. ss 09:11 General: Appears in no apparent distress. uncomfortable, well groomed, well developed, sv Behavior is calm, cooperative, appropriate for age. Pain: Complains of pain in left low back Pain radiates to right leg Pain currently is 4 out of 10 on a pain scale. Is continuous, Aggravated by increased activity, ambulating. Neuro: Level of Consciousness is awake, alert, obeys commands, Oriented to person, place, time, situation, Moves all extremities. Full function Gait is steady. Respiratory: Respiratory effort is even, unlabored, Respiratory pattern is regular, symmetrical. Derm: Skin is pink, warm \T\ dry. Musculoskeletal: Range of motion: intact in all extremities. 09:26 Reassessment: Patient appears in no apparent distress at this time. No changes from sv previously documented assessment. Patient and/or family updated on plan of care and expected duration. Pain level reassessed. Patient is alert, oriented x 3, equal unlabored respirations, skin warm/dry/pink. Vital Signs: 08:50 BP 153 / 99; Pulse 100; Resp 16; Temp 97.6(TE); Pulse Ox 100% on R/A; Weight 120.2 kg; ss Height 5 ft. 7 in. (170.18 cm); Pain 4/10; 08:50 Body Mass Index 41.50 (120.20 kg, 170.18 cm) ED Course: 08:44 Patient arrived in ED. as 08:47 Cristy Foss RN is Primary Nurse. sv 08:50 Arm band placed on Patient placed in an exam room. sv 08:50 Patient has correct armband on for positive identification. Bed in low position. Call sv light in reach. Door closed. Head of bed elevated. 08:53 Jr Wheeler MD is Attending Physician. rn 08:54 Triage completed. 08:56 ED physician to see patient. sv 09:26 No provider procedures requiring assistance completed. Patient did not have IV access sv during this emergency room visit. Administered Medications: 09:11 Drug: TORadol 30 mg Route: IM; Site: left deltoid; sv 09:25 Follow up: Response: No adverse reaction sv 09:12 Drug: Decadron 10 mg Route: IM; Site: left deltoid; sv 09:25 Follow up: Response: No adverse reaction sv Outcome: 09:20 Discharge ordered by . rn 09:26 Discharged to home ambulatory. sv 09:26 Condition: stable 09:26 Discharge instructions given to patient, Instructed on discharge instructions, follow up and referral plans. medication usage, Demonstrated understanding of instructions, follow-up care, medications, Prescriptions given X 2. 09:26 Patient left the ED. sv Signatures: Cristy Foss RN RN Shelby English Roman, MD MD rn Smirch, Shelby, RN RN
--- NOTE | 2020-05-21 09:21 | EDPHYS ---
Physician Documentation [facility] Name: Tom Nagy Age: 54 yrs Sex: Male : 1965 Arrival Date: 05/21/2020 Time: 08:44 Bed 5 Private MD: ED Physician Jr Wheeler HPI: 05/21 09:05 This 54 yrs old Male presents to ER via Ambulatory with complaints of Back rn Pain. 09:05 The patient presents with pain that is acute. The symptoms are located in the low back. rn Onset: The symptoms/episode began/occurred yesterday. The pain radiates to the right leg. Associated signs and symptoms: Pertinent negatives: chest pain, fever, incontinence, nausea, numbness, tingling, urinary retention, vomiting, weakness. The problem was sustained from unknown cause. Modifying factors: The patient symptoms are alleviated by nothing, the patient symptoms are aggravated by any movement. Severity of symptoms: At their worst the symptoms were moderate, in the emergency department the symptoms are unchanged. The patient has not experienced similar symptoms in the past. The patient has not recently seen a physician. Reports right lower back pain, no trauma or injury, radiates down right leg, no weakness, no bowel/bladder issues. . Historical: - Allergies: 08:55 Sulfa (Sulfonamide Antibiotics); ss - Immunization history:: Adult Immunizations up to date. - Social history:: Smoking status: Patient denies any tobacco usage or history of. - Family history:: not pertinent. - Hospitalizations: : No recent hospitalization is reported. ROS: 09:05 Constitutional: Negative for fever, chills, and weight loss, Eyes: Negative for injury, rn pain, redness, and discharge, Neck: Negative for injury, pain, and swelling, Cardiovascular: Negative for chest pain, palpitations, and edema, Respiratory: Negative for shortness of breath, cough, wheezing, and pleuritic chest pain, Abdomen/GI: Negative for abdominal pain, nausea, vomiting, diarrhea, and constipation, Back: + low back pain MS/Extremity: Negative for injury and deformity, Skin: Negative for injury, rash, and discoloration, Neuro: Negative for headache, weakness, numbness, tingling, and seizure. Exam: 09:17 Constitutional: This is a well developed, well nourished patient who is awake, alert, continuous improvement intern to room Head/Face: Normocephalic, atraumatic. Skin: Warm, dry MS/ Extremity: No cyanosis Neuro: Awake and alert, GCS 15, oriented to person, place, time, and situation. Motor strength 5/5 in all extremities. Sensory grossly intact. Cerebellar exam normal. Normal gait. Vital Signs: 08:50 BP 153 / 99; Pulse 100; Resp 16; Temp 97.6(TE); Pulse Ox 100% on R/A; Weight 120.2 kg; ss Height 5 ft. 7 in. (170.18 cm); Pain 4/10; 08:50 Body Mass Index 41.50 (120.20 kg, 170.18 cm) ss MDM: 08:53 Patient medically screened. rn 09:19 Differential diagnosis: arthritis, Osteoarthritis sprain, disc problem, radiculopathy, rn muscle spasm. Data reviewed: vital signs, nurses notes, and as a result, I will discharge patient. Counseling: I had a detailed discussion with the patient and/or guardian regarding: the historical points, exam findings, and any diagnostic results supporting the discharge/admit diagnosis, the need for outpatient follow up, to return to the emergency department if symptoms worsen or persist or if there are any questions or concerns that arise at home. Special discussion: I discussed with the patient/guardian in detail that at this point there is no indication for admission to the hospital. It is understood, however, that if the symptoms persist or worsen the patient needs to return immediately for re-evaluation. Based on the history and exam findings, there is no indication for further emergent testing or inpatient evaluation. I discussed with the patient/guardian the need to see the back specialist for further evaluation of the symptoms. Administered Medications: 09:11 Drug: TORadol 30 mg Route: IM; Site: left deltoid; sv 09:25 Follow up: Response: No adverse reaction sv 09:12 Drug: Decadron 10 mg Route: IM; Site: left deltoid; sv 09:25 Follow up: Response: No adverse reaction sv Disposition: 05/21/20 09:20 Discharged to Home. Impression: Radiculopathy, lumbosacral region, Muscle spasm of back. - Condition is Stable. - Discharge Instructions: Lumbosacral Radiculopathy, Muscle Cramps and Spasms, Back Injury Prevention, [id number], Back Exercises, [id number]. - Prescriptions for Cyclobenzaprine 10 mg Oral Tablet - take 1 tablet by ORAL route every 8 hours As needed; 20 tablet. Medrol (Varun) 4 mg Oral Tablets, Dose Pack - take 1 tablet by ORAL route as directed - follow package instructions; 1 packet. - Work release form, Medication Reconciliation Form, Thank You Letter, Antibiotic Education, Prescription Opioid Use form. - Follow up: Private Physician; When: As needed; Reason: Recheck today's complaints, Re-evaluation by your physician. - Problem is new. - Symptoms have improved. Signatures: Cristy Foss RN RN Jr Moreno MD MD rn Smirch, Shelby, RN RN ss Corrections: (The following items were deleted from the chart) 09:26 09:20 05/21/2020 09:20 Discharged to Home. Impression: Radiculopathy, lumbosacral sv region; Muscle spasm of back. Condition is Stable. Forms are Work release form, Medication Reconciliation Form, Thank You Letter, Antibiotic Education, Prescription Opioid Use. Follow up: Private Physician; When: As needed; Reason: Recheck today's complaints, Re-evaluation by your physician. Problem is new. Symptoms have improved. rn
[2020-05-25 08:25] VITALS: BP 153/99; TEMP 97.6; O2SAT 100
== END 2020-05-21 09:26 | disposition home or self-care (01) ==
LOC: ER 08:43
DX: M54.17 Radiculopathy, lumbosacral region (principal); M62.830 Muscle spasm of back; Z88.2 Allergy status to sulfonamides
CPT/HCPCS: 96372; 99283; J1100

== ENCOUNTER 2021-01-23 06:39 | Observation (INO) | payer OTHER ==
--- OUTSIDE RECORDS SUMMARY | 2021-01-23 06:43 | XMS REPORT | Continuity of Care Document ---
:1965 Author Organization [facility] t Address [address] [place] [address] Care Team Providers Name Role Phone Lab, Fam Pob I Attending Clinician Unavailable Ulysses Niño Attending Clinician VISIT, UAHT Attending Clinician Unavailable Ulysses Niño Admitting Clinician [...] Memoria CARCINOMA 01-05 11:23:00 l RENAL 00:00: Stephen CELL 00 CARCINOMA Active 01/05/2019 [facility] RENAL MASS Diagnosis Active 2018-12-29 Memoria 12-22 06:49:00 l RENAL 00:00: [place] MASS 00 Active 12/22/2018 [facility] Hypertensi Problem Resolve 2019-02-15 Memoria ve d 00:36:44 l disorder, Stephen systemic Hypertensi arterial ve (disorder) disorder, systemic arterial (disorder) Resolved Problem 02/15/2019 Medical Group,[facility] Hyperlipid Problem Active 2019-02-15 Melissa emoria emia 00:36:44 l (disorder) Tariq stoner Hyperlipid emia (disorder) Active Problem 02/15/2019 Medical [facility] Morbid Problem Active 2019-02-15 Memor ia obesity 00:36:44 l (disorder) Morbid Herm chano obesity (disorder) Active Problem 02/15/2019 Medical [facility] MALIGNANT Diagnosis Active 2019-02-03 Memoria NEOPLASM 11:23:00 l OF UNSP 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, MALIGNANT EXCEP NEOPLASM OF UNSP KIDNEY, EXCEP Active [facility] Allergies, Adverse Reactions, Alerts Allergy Allergy Status Severity Reaction(s) Onset Inactive Treating Comm ents Source Name Type Date Date Clinician Sulfa DA Active [facility] (Sulfona 6-19 Clear mide 00:00: [place] Antibiot 00 Regiona ics) [facility] sulfa sulfa Active [facility] drugs l [place] Adhesive Adhesive Active Memori a Tape Tape l [place] Sulfa Adverse Active Info Not [facility] Social History Social Habit Start Date Stop Date Quantity Comments Source Social History 2019-01-26 2019-01-26 [facility] 15:24:15 15:24:15 Medications Ordered Filled Start Stop Current Ordering Indication Dosage Frequency Signature Comments Components Source Medication Medication Date Date Medication? Clinician (SIG) Name Name Hydrochloro Hydrochloro Yes Noam [address] [facility] thiazide thiazide 6-04 [place] [facility] - 00:00: morning Memoria 00 [facility] Losartan Losartan Yes Noam [address] [facility] Potassium Potassium 6-04 [place] [facility] - 00:00: Memoria 00 [facility] ent Clinics Docusate Yes 100 mg = 1 Mem oria Sodium 100 8-21 cap, PO, l MG Oral 13:04: BID, # 90 Karen nn Capsule 00 cap, 0 [Colace] Refill(s), [id number] tramadol Yes 50 mg = 1 Du erika hydrochlori 8-21 tab, PO, l de 50 MG 13:04: Q8H, PRN Karen nn Oral Tablet 00 Pain, X 20 day, # 60 tab, 0 Refill(s) rosuvastati No Notes: Du erika n 8-21 Same as l 02:00: Crestor [place] 00 Entereg 2019-0 No Notes: Memoria 8-21 Same as: l 02:00: Entereg Stephen 00 Maximum of 15 doses Alert Restricted medication Alvimopan (Entergen) order form must be completed prior to dispensing . ceFAZolin + 0 No Notes: Du erika sterile 8- (Same As: l water 10 mL 00:00: Ancef, Herm chano 00 Kefzol) MEDICATION WASTE Product Size: 1000 mg Product Wasted: ___ mg Hydralazine 2018-0 No 10 mg, Du erika 02-02 Route: l 17:57: IVP, [place] 00 Q20Min, Dosing Weight 124.545, kg, PRN Elevated BP, Start date: 02/02/19 12:57:00 CDT, Duration: 2 doses or times, Stop date: Limited # of times Labetalol 0 No 10 mg, Memori a 02-02 Route: l 17:57: IVP, Stephen 00 Q5Min, Dosing Weight 124.545, kg, PRN Elevated BP, Start date: 02/02/19 12:57:00 CDT, Duration: 5 doses or times, Stop date: Limited # of times Metoprolol 0 No 1 mg, Memori a 02-02 Route: l 17:57: IVP, [place] 00 Q5Min, Dosing Weight 124.545, kg, PRN Other -See Comment, Start date: 02/02/19 12:57:00 CDT, Duration: 5 doses or times, Stop date: Limited # of times Ketorolac 2019-0 No 30 mg, Memori a 02-02 Route: l 17:57: IVP, ONCE, Stephen 00 Dosing Weight 124.545, kg, Start date: 02/02/19 12:57:00 CDT, Stop date: 02/02/19 12:57:00 CDT Acetaminoph 2018-0 No 1,000 mg, M emoria en 02-02 Route: PO, l 17:57: Drug form: Stephen 00 TAB, ONCE, Dosing Weight 124.545, kg, PRN [...] 25 Memoria 8-20 microgram, l 17:57: Route: [place] 00 IVP, Q5Min, Dosing Weight 124.545, kg, PRN Pain Score 4-6, Priority: Routine, Start date: 02/02/19 12:57:00 CDT, Duration: 4 doses or times, Stop date: Limited # of times Hydromorpho 2019-0 No 0.5 mg, Mem oria ne 8 Route: l 17:57: IVP, [place] 00 Q5Min, Dosing Weight 124.545, kg, PRN [...] Memori a 02-02 Route: l 17:57: IVP, Stephen 00 Q2MIN, Dosing Weight 124.545, kg, PRN [...] Stop date: (ANES) 02/02/19 10:57:00 CDT phenylephri 2018-0 No Route: IV, Memoria ne (ANES) 8-20 Drug form: l 15:16: INJ, ONCE, Stop date: 02/02/19 10:16:00 CDT dexamethaso 2019-0 No Route: IV, Memoria ne (ANES) 8-20 Drug form: l 15:05: INJ, ONCE, Stop date: 02/02/19 10:05:00 CDT ciprofloxac 2019-0 No Route: IV, Memoria in (ANES) 8-20 [...] (ANES) 8-20 Drug form: l 14:09: SOLN, [place] 00 ONCE, Stop date: 02/02/19 9:09:00 CDT Docusate No Notes: Memoria Sodium 100 8-20 (Same as: l MG Oral 14:00: Colace) [place] Capsule 00 (Do Not [Colace] Crush) sennosides, No Notes: Du erika ASSISTED 8-20 (Same as: l 14:00: Senokot) Stephen 00 Calcium No 1,000 mL, Memor ia Chloride 8-20 Rate: 75 l 0.0014 13:12: ml/hr, Stephen MEQ/ML / 00 Infuse Potassium over: 13.3 Chloride hr, Route: 0.004 IV, Dosing MEQ/ML / Weight Sodium 124.545 Chloride kg, Total 0.103 Volume: MEQ/ML / 1,000, Sodium Start Lactate date: 0.028 02/02/19 MEQ/ML 8:12:00 Injectable CDT, Solution Duration: 1 day, Stop date: 02/03/19 8:11:00 CDT, 2.46, m2, 0 dexmedetomi No Route: IV, Memoria dine (ANES) 8-20 Drug form: l 200 13:10: INJ, Start [place] microgram 00 date: 02/02/19 8:10:00 CDT, Stop [...] No Notes: Memor ia 300 MG Oral 8-20 (Same as: l Capsule 13:00: Neurontin) Herm heparin 2018- No Notes: Memoria 8-20 porcine l 13:00: heparin Calcium No 1,000 mL, Memor ia Chloride 8-20 Rate: 75 l 0.0014 12:59: ml/hr, Stephen MEQ/ML / 00 Infuse Potassium over: 13.3 Chloride hr, Route: 0.004 IV, Dosing MEQ/ML / Weight Sodium 124.545 Chloride kg, Total 0.103 Volume: MEQ/ML / 1,000, Sodium Start Lactate date: 0.028 02/02/19 MEQ/ML 7:59:00 Injectable CDT, Solution Duration: 30 day, Stop date: 03/04/19 7:58:00 CDT, 2.46, m2, 0 oxybutynin No Notes: Memor ia 8-20 Same as: l 12:59: Ditropan) Hydralazine No Notes: Du erika 8-20 (Same as: l 12:59: Apresoline ) Push over 5 minutes Dilaudid No Notes: Memoria 8-20 Same as: l 12:59: Dilaudid Lactated No Route: IV, Mem oria Ringers 8-20 Total l Injection 12:30: Volume: Karen nn IV (ANES) 00 1,000, 1000 mL Start date: 02/02/19 7:30:00 CDT, Stop date: 02/02/19 8:30:00 CDT Exparel 2019- No 266 mg, Memoria 8-20 Route: l 11:59: NERVE [place] 00 BLOCK, Dosing Weight 124.545, kg, ONCE, Start date: 02/02/19 6:59:00 CDT, Stop date: 02/02/19 6:59:00 CDT Mannitol 2018- Yes Notes: Memoria 8-20 (Same as: l 11:59: Osmitrol) Infuse through 5 micron or smaller filter WASTE: F/P - Sink; E - Municipal Trash [employer] Exparel No Notes: Memoria 8-19 (Same as: l 23:00: Exparel) [place] 00 NOT FOR IV use Postoperat bronwyn [...] cuff repair: 133 mg (10 mL) Hydrochloro Yes 1 tab, PO, Memoria thiazide 8-13 Daily, 0 l 12.5 MG / 14:53: Refill(s) [facility] valsartan 00 320 MG Oral Tablet neomycin No 1,000 mg = Mem oria 500 mg oral 8-13 2 tab, PO, l tablet 13:47: TID, take Tariq n 00 2 tablets at 4pm, 5pm, 10pm day before surgery, X 1 day, # 6 tab, 0 Refill(s), Pharmacy: [facility][id number] Metronidazo No 500 mg = 1 Memoria le 500 MG 8-13 tab, PO, l Oral Tablet 13:47: Q8H, take H ermann 00 1 tablet at 4pm, 5pm, 10pm day before surgery, X 1 day, # 3 tab, 0 Refill(s), Pharmacy: [facility] #[id number] gabapentin 2018- Yes 600 mg = 1 M emoria 600 MG Oral 8-13 tab, PO, l Tablet 13:47: Daily, 3 Stephen 00 hours prior to surgery, # 1 tab, 0 Refill(s), Pharmacy: [facility] #[id number] methocarbam No 750 mg = 1 Memoria ol 750 mg 8-13 tab, PO, l oral tablet 13:47: Daily, Herm chano 00 take 3 hours prior to surgery, X 1 day, # 1 tab, 0 Refill(s), Pharmacy: [facility] #[id number] celecoxib 2019-0 Yes 200 mg = 1 Me moria 200 MG Oral 8-13 cap, PO, l Capsule 13:47: Daily, Stephen [Celebrex] 00 take 3 hours prior to surgery, # 1 cap, 0 Refill(s), Pharmacy: [facility] #[id number] Valsartan-H Valsartan-H Yes Noam [address] [facility] ydrochlorot ydrochlorot [facility] hiazide hiazide [facility] Rosuvastati Rosuvastati Yes Noam [address] [facility] n Calcium n Calcium [place] [facility] - [facility] l [facility] Synjardy XR Synjardy XR Yes Noam [address] [facility]oria l [facility] Vital Signs Vital Name Observation Time Observation Value Comments Source Height 2019-02-12 15:30:00 170.18 cm [facility] [place] Weight 2019-02-12 15:30:00 [facility] [place] BMI Calculated 2019-02-12 15:30:00 Memori al [place] Temperature Oral (F) 2019-02-03 13:23:00 98.2 F [facility] Heart Rate 2019-02-03 13:23:00 [facility] [place] Systolic (mm Hg) 2019-02-03 13:23:00 Du rial [place] Diastolic (mm Hg) 2019-02-03 13:23:00 Mem orial [place] Respitory Rate 2019-02-03 13:23:00 Memori al [place] Respitory Rate 2019-02-03 12:59:00 Memori al [place] Temperature Oral (F) 2019-02-03 08:29:00 98.6 F [facility] [place] Heart Rate 2019-02-03 08:29:00 [facility] [place] Respitory Rate 2019-02-03 08:29:00 Memori al [place] Systolic (mm Hg) 2019-02-03 08:29:00 Du rial [place] Diastolic (mm Hg) 2019-02-03 08:29:00 Mem orial [place] Temperature Oral (F) 2019-02-03 03:59:00 98.4 F [facility] [place] Heart Rate 2019-02-03 03:59:00 [facility] [place] Systolic (mm Hg) 2019-02-03 03:59:00 Du riaperri [place] Diastolic (mm Hg) 2019-02-03 03:59:00 Mem orial [place] Height 2019-02-02 21:11:00 170.18 cm [facility] [place] Weight 2019-02-02 21:11:00 [facility] [place] BMI Calculated 2019-02-02 21:11:00 Memori al [place] Height 2019-01-26 14:52:00 170.18 cm [facility] [place] Weight 2019-01-26 14:52:00 [facility] [place] BMI Calculated 2019-01-26 14:52:00 Memori al [place] Height 2019-01-08 13:53:00 170.18 cm [facility] [place] Weight 2019-01-08 13:53:00 [facility] [place] BMI Calculated 2019-01-08 13:53:00 Memori al [place] Weight 2018-12-29 12:45:00 [facility] [place] BMI Calculated 2018-12-29 [facility]:00 [facility] Height 2018-12-29 12:45:00 170.18 cm [facility] Stephen Procedures Procedure Date / Time Performing Clinician Source Performed Partial nephrectomy 2019-02-02 05:00:00 Oscar Mitchell Knee joint 2008-06-16 00:00:00 Oscar ken operation<sup>1</sup> Cholecystectomy 1989-06-16 00:00:00 Oscar ken Tonsillectomy 1967-06-16 00:00:00 Oscar ken Encounters Start End Encounter Admission Attending Care Care Encounter Source Date/Time Date/Time Type Type Clinicians Facility Department ID 2020-09-28 2020-09-28 Out[facility] [id number] 2020-08-23 2020-08-23 [facility] [id number] [facility] 2020-08-16 2020-08-16 [facility] [id number] [facility] 2020-08-09 2020-08-09 Out[facility] [id number] [facility] 2020-05-24 2020-05-24 Outpatient [facility] [id number] [facility] 2020-05-23 2020-05-23 Laboratory Lab, [facility] [id number] 08:17:46 08:37:46 Only Fam [facility] [id number] [place] [id number] nal [address] 2020-05-16 2020-05-16 Outpatient [facility] [id number] [facility] 2020-05-08 2020-05-08 Outpatient [facility] [id number] [facility] 2020-02-08 2020-02-08 [facility] [id number] [facility] 08:00:00 08:00:00 t Elizabeth Elizabeth [employer] Lu[employer] s - Drive [facility] l Medicine Outpati ent Clinics 2019-11-17 2019-11-17 [facility] [id number] [facility] 14:50:00 14:50:00 t Elizabeth Elizabeth [employer] s - Drive [facility] l Medicine Outpati ent Clinics 2019-11-09 2019-11-09 [facility] [id number] [facility] [address] 08:00:00 08:00:00 t Elizabeth Elizabeth [employer] Luke s - Drive [facility] l Medicine Outpati ent Clinics 2019-10-11 2019-10-11 [facility] [id number] [facility] [address] 08:30:00 08:30:00 t Elizabeth Elizabeth Gram[employer] LuIssuu s - Drive [facility] l Medicine Outpati ent Clinics 2019-09-13 2019-09-13 [facility] [id number] 08:30:00 08:30:00 t Elizabeth Elizabeth Gramovox LuIssuu s - Drive [facility] Medicine l Medicine Outpati ent Clinics 2019-08-23 2019-08-23 [facility] [id number] [facility] 08:00:00 08:00:[address] Luke s - Drive [facility] Medicine Outpati ent Clinics 2019-05-24 2019-05-24 [facility] [id number] [facility] [address] 08:15:00 08:15:[address] Luke s - Drive [facility] Medicine Outpati ent Clinics 2019-05-12 2019-05-12 [facility] [id number] 16:14:00 16:14:[address] Luke s - Drive [facility] Medicine Outpati ent Clinics 2019-02-17 2019-02-17 [facility] [id number] 08:45:00 08:45:[address] LuIss[employer] s - Drive [facility] Outpat[facility] ent Clinics 2019-02-12 2019-02-13 Outpatient nullFlavo [facility]MG [id number] Memoria 15:40:00 04:59:59 r Urology 03 perri faulkner [facility] 2019-02-12 2019-02-12 Outpatient Santoshheim, MG [facility] [id number] 10:40:00 23:59:59 Josr Arora 2019-02-12 2019-02-12 Outpatient WAYNEIE WAYNEIE [id number] Memoria 10:40:00 10:40:00 03 perri Mitchell 2019-02-02 2019-02-03 Inpatient nullFlavo [facility] [id number] Memoria 12:59:00 15:21:00 r [facility] 01 [facility] 2019-02-02 2019-02-03 Outpatient Denishaimli, SE MHSE [id number] 07:59:00 10:21:00 Josr Arora 2019-02-02 2019-02-02 Inpatient U MHSE URO [id number] MH 07:59:00 05:15:00 [facility] alicia [facility] 2019-01-26 2019-01-27 Outpatient nullFlavo MHMG [id number] Memoria 13:30:00 04:59:59 r Urology 02 l Daniel faulkner [place] 2019-01-26 2019-01-26 Outpatient VISIT, MG MG [id number] 08:30:00 23:59:59 NURSE [facility] 2019-01-26 2019-01-26 Outpatient MHIE MHIE [id number] Memoria 08:30:00 08:30:00 02 perri Mitchell 2019-01-08 2019-01-09 [place] [id number] Memoria 14:00:00 04:59:59 r Urology 01 l Associates Karen nn Time Share 2019-01-08 2019-01-08 Outpatient Denishagenheim, MG [facility] [id number] 09:00:00 23:59:59 Josr Arora 2019-01-08 2019-01-08 Outpatient MHIE MHIE [id number] Memoria 09:00:00 09:00:00 01 perri Mitchell 2018-12-29 2018-12-30 Outpatient nullFlavo [facility] [id number] Memoria 11:41:00 04:59:00 r [place] 00 l [facility] 2018-12-29 2018-12-29 Outpatient [place], MHSE MHSE [id number] 06:41:00 23:59:00 Josr Arora 2018-12-29 2018-12-29 Outpatient MHSE URO [id number] MH 06:41:00 06:41:[address] [facility] 2018-12-11 2018-12-11 Outpatient MHIE MHIE [id number] Memoria 09:15:00 09:15:00 00 perri Mitchell 2018-12-08 2018-12-08 [facility] [id number] 10:00:00 10:00:00 SETiT Quosis [facility] Results Test Description Test Time Test Comments Results Result Comments Source HEMATOLOGY 2019-02-03 15.9 Memorial Karen nn 10:26:00 HEMATOLOGY 2019-02-03 6.9 Memorial Karen nn 10:26:00 HEMATOLOGY 2019-02-03 0.6 Memorial Karen nn 10:26:00 HEMATOLOGY 2019-02-03 0.2 Memorial Karen nn 10:26:00 HEMATOLOGY 2019-02-03 10.2 Memorial Karen nn 10:26:00 HEMATOLOGY 2019-02-03 2.1 Memorial Karen nn 10:26:00 HEMATOLOGY 2019-02-03 0.9 Memorial Karen nn 10:26:00 HEMATOLOGY 2019-02-03 0.1 Memorial Karen nn 10:26:00 ELECTROLYTES 2019-02-03 10.1 Memorial Her ken 10:26:00 [...] code = MCH) 32.0 pg 27.0-31.0 Memorial WeifjveTLRHXQVCIB6407-40-08 10:26:0033.4[facility] HermannHEMATOLOGY 2019-02-03 10:26:0013.8[facility] SpuhsakOAMBAWEJAG9945-47-94 10:26:42029Lqicbgzr GggyzxkABGLGAWBIM1429-04-76 10:26:008.9[facility]orial YpthmnfBZJFQFVJGR6072-16-89 10:26:0076.4[facility] HermannCHEM JZRFW6761-99-53 17:49:38114Rfeityvd HermannCHEM XHPTL9313-77-07 17:49:0015[facility] HermannCHEM MXOYD3875-97-65 17:49:001.19 [facility] HermannCHEM NENPO9389-21-51 17:49:97899Zopwtdms HermannCHEM PANEL 2019-02-02 17:49:004.1[facility] HermannCHEM JKXJG4800-66-20 17:49:72511Wacofovt HermannCHEM FGXYC2162-74-07 17:49:0022[facility] HermannCHEM VBTIH7987-07-42 17:49:007.8[facility] HermannCHEM TGFCA8852-86-85 17:49:0068[facility] HermannCHEM UFHPX3354-90-64 17:49:0013.1[facility]orial BpbmzxgYAQJQVPOIC9675-70-96 17:49:0014.4 Memorial LkzehcdDKJTRZMDMX5572-77-50 17:49:0043.4[facility] HermannBLOOD BANK XYQVLTL3249-78-06 15:08:00Negative (01/26/19 10:08 AM)[facility] [place] ODXSOPSBVDSP4395-93-18 15:08:0011.8[facility] NhhkobzEXSSHQAJFHEG9324-59-63 15:08:01798Zpyfhlrr LhkadtrXXDANGSKSPLR4136-50-74 15:08:0019[facility] Stephen CFBDVBADATTF3859-69-13 15:08:001.05[facility] KwawhbaRUAWMSMGHJTF8332-76-53 15:08:88282Ebuhhush QquaejuPARZCHJDQAOO6791-64-05 15:08:003.8[facility] [place] MEJJNQUPIAKK8299-60-33 15:08:53157Uslxnbcm DnajhvlUKGNHSVOYNIH2312-32-78 15:08:0029[facility]orial MmqpjgrRQFMICPYZZHN3425-83-45 15:08:009.0[facility] [place] WIONAVGPWHFF4071-29-73 15:08:0080[facility] SyuvdhjLJRXPNKPCV8246-46-84 15:08:00 9.0Memorial ZfnwodpNLOCRHIBHQ5934-98-59 15:08:004.52[facility] HermannHEMATOLOGY 2019-01-26 15:08:0014.5[facility]orial ChzxoibNMFTXQAQXQ3649-34-25 15:08:0042.1[facility] AldthgvWWBSGDNZLM9090-99-55 15:08:0093.2[facility] ImfwyotLRFENWTJYU1382-38-31 15:08:00 Test Item Value Reference Range Interpretation Comments MCH (test code = MCH) 32.1 pg 27.0-31.0 Memorial CxmhhakSOUNZMSRKE9225-30-87 15:08:0034.4[facility] HermannHEMATOLOGY 2019-01-26 15:08:0013.8[facility] DoezansBEUQTAGIKR0497-04-86 15:08:54559[place]a KdhyhmoCRSIDSGEZH5362-98-49 15:08:009.1[facility]orial MofnmqiNHPDZTLBAB9308-10-17 15:08:00 Test Item Value Reference Range Interpretation Comments PT (test code = PT) 12.8 s 12.0-14.7 Memorial YydxblcFWXRZDJNZT2926-76-53 15:08:00 Test Item Value Reference Range Interpretation Comments PTT (test code = PTT) 29.5 s 22.9-35.8 Memorial NwieijxGXINDWOPZW0260-30-53 15:08:00 Test Item Value Reference Range Interpretation Comments INR (test code = INR) 0.98 1 0.85-1.17 Memorial JkmyiuqEQFVTRVSKP5849-12-83 15:08:0064.0[facility] HermannHEMATOLOGY 2019-01-26 15:08:0025.7Memorial JtltlcwYKUGUWQPPM8003-32-89 15:08:006.8[facility] KzahftjZDPFGURCRP2067-34-89 15:08:003.2[facility]orial JozjdrzXKLYWBZBZS3518-56-99 15:08:000.3[facility]orial AeqcvkoDQFJUXFQWM0463-78-37 15:08:005.7[facility] Stephen XVIGSCEUWR9452-80-31 15:08:002.3[facility]orial PsjthsqPHKRTIRJTO3594-55-58 15:08:000.6 Memorial SvozkmgPQJELUROFF3198-75-66 15:08:000.3[facility] HermannURINE AND STOOL 2019-01-26 15:08:00Clear (01/26/19 10:08 AM)[facility] HermannURINE AND STOOL 2019-01-26 15:08:00 Test Item Value Reference Range Interpretation Comments UA Spec Grav (test code = UA Spec 1.009 1 Grav) [facility]annURINE AND PBDGQ4723-39-28 15:08:00 Test Item Value Reference Range Interpretation Comments UA pH (test code = UA pH) 8.0 1 5.0-8.0 [facility]annURINE AND BFLVL6671-51-24 15:08:00Negative *NA*(01/26/19 10:08 AM)[facility]ann[facility] AND EXYZR0653-53-15 15:08:00Negative (01/26/19 10:08 AM) [facility] AND VZQQK9867-54-51 15:08:00Negative (01/26/19 10:08 AM) [facility] AND FYGOK0647-42-76 15:08:00Negative (01/26/19 10:08 AM) [facility] AND XNZIF3566-75-03 15:08:001[facility]annURINE AND DNDDU9860-73-91 15:08:002[facility] HermannBLOOD BANK IPNYCCP1678-34-82 14:54:00 Product available (01/26/19 9:54 AM)[facility] [place]- MRI ABDOMEN W/CONT 2018-12-04 09:33:00 FAX: Adryan Coreas MD [phone] [place]: St: DIS Name: JIM GARCIA [facility] : 1965 Age/S: 53/M [address] [place] [address] Unit#: [id number] Loc: G.6604 [place] [address] Phys: Adryan Marinelli MD Acct: [id number] Dis Date: 20181203 Status: DIS IN PHONE #: [phone] Exam Date: 12/03/2018 171 FAX #: [phone] Reason: renal mass protocol. EXAMS: CPT CODE: [id number] MRI ABDOMEN W/CONT [id number] PROCEDURE: MRI ABDOMEN WITH AND WITHOUT CONTRASTINDICATION: [...] Signed Report (CONTINUED) FAX: Adryan Coreas MD [phone] [place]: St: DIS-------- Name: KINGJIM Alicia [facility] : 1965 Age/S: 53/M [address] [place] [address] Blvd Unit #: [id number] Loc: G.6604 [place] [address] Phys: Adryan Marinelli MD Acct: [id number] Dis Date: Status: DIS IN PHONE #: [phone] Exam Date: 12/03/2018 171 FAX #: [phone] Reason: renal mass protocol. EXAMS: CPT CODE: [id number] MRI ABDOMEN W/CONT 02713 <Continued> demonstrates mild delayed enhancement pattern. These [...] cysts. 4. Hepatic steatosis. 5. Splenomegaly. SL: [id number] at 0933 Reported and signed by: Wilber Feng M.D. CC: Adryan Marinelli MD Technologist: Hernan Neville RT(R)(MRI) Trnscrd Date/Time/By: 12/04/2018 (932) : By: Irwin Orig Print D/T: S: 12/04/2018 (7836) PAGE 2 Signed TlidneVTIF1O% 2018-12-03 08:21:00 Test Item Value Reference Range Interpretation Comments HGBA1C% (test code = HGBA1C%) 6.4 %A1C 4.8-6.0 H COMPREHENSIVE METABOLIC [id number] 07:54:00 Test Item Value Reference Range Interpretation [...] TOTAL (test code = ALKP) CBC W/AUTO [id number] 07:43:00 Test Item Value Reference Range Interpretation [...] REQUIRED (test code NO = MDIFF) - RETROPERITONEAL [id number] 18:22:00 Name: JIM GARCIA [facility] : 1965 Age/S: 53 / M [address] [place] [address] Unit #: [id number] Loc: [place] [id number] Phys: Adryan Marinelli MD Acct: [id number] Dis Date: Status: ADM IN PHONE #: [phone] Exam Date: 12/02/20181803 FAX #: [phone] Reason: possible renal mass EXAMS: CPTCODE: [id number] [place] [facility] [place] [id number] PROCEDURE: RENAL ULTRASOUND INDICATION: Possible renal mass. [...] neoplasm. 2. 2 right renal cysts. SL: - PAGE 1 Signed Report (CONTINUED) Name: JIM GRACIA [facility] : 1965 Age/S: 53 / M [address] [place] [address] Blvd Unit #: [id number] Loc: [place] [address] Phys: Adryan Marinelli MD Acct: [id number] Dis Date: Status: ADM IN PHONE #: [phone] Exam Date: 12/02/20181803 FAX #: [phone] Reason: possible renal mass EXAMS: CPT CODE: [id number] [facility] COM [id number] <Continued> at 1822 Reported and signed by: Elvis Gage M.D. CC: Adryan Marinelli MD Technologist: Kuldip Murillo RDMS () (OB) Trnscb Date/Time: 12/02/2018 (1821) [email or web address] Orig Print D/T: S: 12/02/2018 (1825) Probe: PAGE 2 Signed Report- CT ABD PELVIS W/O [id number] 16:38:00 Name: JIM GARCIA [facility] [place] : 1965 Age/S: 53 / M [address] [place] [address] Blvd Unit #: [id number] Loc: [place] [id number] Phys: Adryan Marinelli MD Acct: [id number] Dis Date: Status: ADM IN PHONE #: [phone] Exam Date: 12/02/2018 1608 FAX #: [phone] Reason: uti andsepsis EXAMS: CPTCODE: [id number] CT ABD PELVIS W/O CONT [id number] PROCEDURE: CT ABDOMEN AND PELVIS WITHOUT CONTRAST [...] unremarkable.PAGE 1 Signed Report (CONTINUED) Name: [facility] Dory Pruitt : 1965 Age/S: 53 / M [address] [place] [address] Unit #: [id number] Loc: [place] [address] Phys: Adryan Marinelli MD Acct: [id number] Dis Date: Status: ADM IN PHONE #: [phone] Exam Date: 12/02/2018 1608 FAX #: [phone] Reason: uti and sepsis EXAMS: CPT CODE: [id number] CT ABD PELVIS W/O CONT 32816 <Continued> PERITONEUM: No free intraperitoneal fluid or [...] diverticulosis, no CT evidence for diverticulitis. SL: [id number] at 1638 Reported and signed by: Sloan Cummins M.D. CC: Adryan Marinelli MD Technologist:RT Roma(R) CTDI: DLP: Trnscb Date/Time: 12/02/2018 (1638) [email or web address] Orig Print D/T: S: 12/02/2018 (2026) PAGE 2 Signed Report PROCALCITONIN (PCT)2018-12-02 14:34:00 [...] concentrations <2 ng/mL are obtained. HEPATIC FUNCTION [id number] 12:43:00 Test Item Value Reference Range Interpretation [...] IUnit/L 20-125 N code = ALKP) PROTHROMBIN [id number] 12:42:00 Test Item Value Reference Range Interpretation [...] o prevent recurre nt infarct). THROMBOPLASTIN TIME [id number] 12:42:00 Test Item Value Reference Range Interpretation Comments THROMBOPLASTIN TIME 27.5 Seconds 25.0-39.5 N Ther apeutic PARTIAL (test code = Range: 50.4 - 88.3 PTT) Seconds Effective 09/29/2018 CBC W/AUTO [id number] 12:30:00 Test Item Value Reference Range Interpretation [...] REQUIRED (test NO code = MDIFF) URINALYSIS [id number] 12:29:00 Test Item Value Reference Range Interpretation [...] NONE SEEN A COMMENTS: Clean CatchUA CULT [id number] 12:29:00 Test Item Value Reference Range Interpretation Comments UA CULTURE NEEDED? YES,WBC>10 & Culture Chk Criteria met, (test code = EPI<=25 Criteria Urine Cultu re UACULT) in-process. COMMENTS: Clean Catch- XR CHEST 2 [id number] 12:21:00 FAX: Gabriela Horton MD [phone] [place]: St: REG Name: [facility] Hollenberg : 1965 Age/S: 53/M [address] [place] [address] Unit#: [id number] Loc: [place] [address] Phys: Gabriela Espinoza MD Acct: [id number] Dis Date: Status: REG ER PHONE #: [phone] Exam Date: 12/02/2018 1221 FAX #: [phone] Reason: acute SOB EXAMS: CPT CODE: [id number] XR CHEST 2 V 63859 EXAM: XR CHEST 2 VIEWS DATE: 12/02/2018 [...] normal. IMPRESSION: No acute cardiopulmonary process. SL: [id number] at 1221 Reported and signed by: Kindra Morelos D.O. 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 LACTIC ACID [id number] 12:08:00 Test Item Value Reference Range Interpretation Comments LACTIC ACID POC 1.7 MMOL/L 0.90-1.70 N Performed by certified (test code = LACTP) pellet machine operator at [facility] CHEMISTRY 8 [id number] 12:08:00 Test Item Value Reference Range Interpretation [...] ML/MIN (test code = GFRBED) CHEMISTRY 8 [id number] 12:08:00 Test Item Value Reference Range Interpretation Comments ISTAT-SODIUM (test 138 MMOL/L 134-147 N code = NAP) ISTAT-POTASSIUM (test 3.4 MMOL/L 3.4-5.0 N code = KP) ISTAT-CHLORIDE (test 100 MMOL/L 100-108 N Perform ed by code = CLP) certified opera tor at [facility] ISTAT CARBON DIOXIDE 23.0 mmol/L 21-33 N [...]
--- NOTE | 2021-01-23 07:27 | RAD REPORT ---
EXAM DESCRIPTION: CT - CTHCSPWOC - 01/23/2021 7:08 am CLINICAL HISTORY: PAIN, fall, syncopal episode, head and neck pain, posterior scalp lacerations COMPARISON: No comparisons TECHNIQUE: Axial 5 mm thick images of the head were obtained. Axial 2 mm thick images of the cervic al spine were obtained with sagittal and coronal reconstruction images generated and reviewed. All CT scans are performed using dose optimization technique as appropriate and may include automated exposure control or mA/KV adjustment according to patient size. FINDINGS: No epidural or subdural hematoma identified. Artifacts are present along the inner table o f the skull. Findings are not convincing for posttraumatic subarachnoid hemorrhage or significant cor tical contusion. Patient can be monitored for neurologic findings as detailed. No mass, edema or midl ine shift. Ventricles are normal. No cortical edema or sulcal effacement. No suspicion for acute infa rction. No extra-axial fluid collections. Mastoid air cells are clear. Mucosal thickening present in the ethmoid air cells. Mucosal thickening and bilateral air-fluid level present in the maxillary sinu ses. Left deviation of the mid nasal septum noted. Posterior scalp hematoma is present small in size with underlying bone intact. No foreign body in the scalp. Cervical body height and alignment are normal. C6-7 disc space narrowing is present. No fracture or a cute bony abnormality. Central canal detail is inherently limited. No paraspinal mass or hematoma. IMPRESSION: No epidural or subdural hematoma seen. No convincing evidence for cortical contusion or significant posttraumatic subarachnoid hemorrhage. Negative CT cervical spine examination for acute or significant finding. Bilateral maxillary sinus and ethmoid air cell sinusitis findings.
[2021-01-23 08:55] LABS: Absolute Lymphocytes (CBC) 0.9 K/uL (0.7-4.9); Basophils % 0.5 % (0-1.3); Hematocrit 46.6 % (39.6-49.0); MPV 8.3 fL (7.6-11.3); RBC Red Blood Cell Count 4.88 M/uL (4.33-5.43)
[2021-01-23 08:57] LABS: Protime INR 1.16
[2021-01-23 09:06] LABS: BUN Blood Urea Nitrogen 15 mg/dL (7-18); Bicarbonate 25 mmol/L (21-32); Ferritin 694.3 ng/mL (26-388); Glucose Level 172 mg/dL (74-106); Sodium Level 135 mmol/L (136-145); Troponin (Emerg Dept Use Only) < 0.02 ng/mL (0.0-0.045)
--- NOTE | 2021-01-23 09:08 | RAD REPORT ---
EXAM DESCRIPTION: RAD - Chest Single View - 01/23/2021 8:58 am CLINICAL HISTORY: fever, cough, syncope COMPARISON: None TECHNIQUE: AP portable chest image was obtained 01/23/2021 8:58 am . FINDINGS: No peripheral mass or consolidation. Interstitial pattern is not outside of normal range f or low lung volume study. Heart and vasculature are normal. No measurable pleural effusion and no pne umothorax. No acute bony abnormality seen. No acute aortic findings suspected. IMPRESSION: No acute cardiopulmonary process.
[2021-01-23 09:53] LABS: SARS-COV-2 RT PCR POSITIVE (NEGATIVE)
--- NOTE | 2021-01-23 10:00 | RAD REPORT ---
EXAM DESCRIPTION: CT - Chest For Pe Angio - 01/23/2021 9:47 am CLINICAL HISTORY: syncope, shortness of breath COMPARISON: No comparisons TECHNIQUE: Dynamically enhanced 3 mm thick images of the chest were obtained during administration o f approximately 150mL Isovue 370 IV contrast. Coronal and oblique MIP reconstruction images were gene rated and reviewed. Exam utilizes a protocol to evaluate the pulmonary arterial tree. All CT scans are performed using dose optimization technique as appropriate and may include automated exposure control or mA/KV adjustment according to patient size. FINDINGS: No pulmonary emboli are identified. The aorta as imaged shows no acute or suspicious finding. No pericardial thickening or effusion. No dense consolidation or mass lesions seen. Minimal areas of airspace opacification are present in t he superior aspect of each upper lobe. This pattern is nonspecific. Atelectasis would be possible. No nspecific alveolar edema can have this presentation. Very mild or early bilateral pneumonia is possib le. In the current clinical environment, a very early or mild COVID-19 pneumonia is possible and can be correlated with testing and patient's symptoms. No pleural effusion or pleural thickening. No mediastinal or hilar suspicious masses. No chest wall masses or abnormal axillary lymphadenopathy. Partially imaged liver shows fatty infiltration. Liver is not adequately evaluated for focal lesion a ssessment. IMPRESSION: No pulmonary emboli identified. Patchy alveolar opacities in the upper lung harman are present and nonspecific. In the current clinic al environment, very mild or early COVID-19 pneumonia cannot be excluded and can be correlated with c linical presentation and testing. Non COVID viral pneumonia or very mild bacterial pneumonia also possible.
[2021-01-23] MEDS ORDERED: METHYLPREDNISOLONE 125 MG INJ ONE (10:16)
[2021-01-23] MEDS ORDERED: ACETAMINOPHEN 325 MG TABLET ONE (10:17)
[2021-01-23] MEDS ORDERED: ONDANSETRON 4 MG/2 ML VIAL ONE (10:17)
[2021-01-23] MEDS ORDERED: NA CHLORIDE 0.9% 1,000 ML ONE (10:17)
[2021-01-23 10:37] LABS: Urine Blood 2+ (Negative); Urine Glucose 3+ (Negative); Urine Protein 1+ (Negative)
[2021-01-23 11:08] LABS: Urine Bacteria <20 /HPF (NONE SEEN); Urine Mucus 1+ /HPF (NONE SEEN)
--- NOTE | 2021-01-23 11:25 | ER ---
Nurse's Notes [facility] Name: Tom Nagy Age: 55 yrs Sex: Male : 1965 Arrival Date: 01/23/2021 Time: 06:41 Bed 24 Private MD: Diagnosis: Pneumonia due to SARS-associated coronavirus;Syncope and collapse;Unspecified injury of head, initial encounter;Laceration without foreign body of scalp, initial encounter Presentation: 01/23 06:49 Chief complaint: Patient states: he had a syncopal episode in the bathroom at approx bb 0530 this morning falling hitting his head and receiving several lacerations, pt does not remember what happened. Care prior to arrival: None. Mechanism of Injury: Fall. 06:49 Acuity: GOMEZ 2 bb 06:49 Method Of Arrival: Wheelchair bb 06:52 Coronavirus screen: At this time, the client does not indicate any symptoms associated bb with coronavirus-19. Ebola Screen: No symptoms or risks identified at this time. Initial Sepsis Screen: Does the patient meet any 2 criteria? No. Patient's initial sepsis screen is negative. Does the patient have a suspected source of infection? No. Patient's initial sepsis screen is negative. Risk Assessment: Do you want to hurt yourself or someone else? Patient reports no desire to harm self or others. Onset of symptoms is unknown. Historical: - Allergies: 06:53 Sulfa (Sulfonamide Antibiotics); bb - Home Meds: 06:53 Lisinopril Oral [Active]; Hydrochlorothiazide Oral [Active]; Synjardy XR oral [Active]; bb - PMHx: 06:53 Hypertensive disorder; Diabetes mellitus; bb - Immunization history: Last tetanus immunization: 6 years ago. - Social history:: Smoking status: Patient denies any tobacco usage or history of. - Family history:: not pertinent. - Hospitalizations: : No recent hospitalization is reported. Screenin:49 Abuse screen: Denies threats or abuse. Tuberculosis screening: No symptoms or risk bb factors identified. Primary Survey: 06:49 NO uncontrolled hemorrhage observed. A: The patient is alert. Airway: patent. bb Breathing/Chest: Respiratory pattern: regular, Respiratory effort: spontaneous, unlabored. Circulation: Heart tones present. Disability Alert. Vital Signs: 06:49 BP 129 / 89; Pulse 109; Resp 16 S; Temp 99.6(O); Pulse Ox 94% on R/A; Weight 127.01 kg bb (R); Height 5 ft. 7 in. (170.18 cm); Pain 2/10; 06:49 Body Mass Index 43.85 (127.01 kg, 170.18 cm) bb Spencer Coma Score: 06:49 Eye Response: spontaneous(4). Verbal Response: confused(4). Motor Response: obeys bb commands(6). Total: 14. Trauma Score (Adult): 06:49 Eye Response: spontaneous(1); Verbal Response: confused(1); Motor Response: obeys bb commands(2); Systolic BP: > 89 mm Hg(4); Respiratory Rate: 10 to 29 per min(4); [place] Score: 14; Trauma Score: 12 ED Course: 06:41 Patient arrived in ED. wm 06:49 Patient has correct armband on for positive identification. bb 06:49 Patient maintains SpO2 saturation greater than 95% on room air. bb 06:50 Triage completed. bb 06:53 Arm band placed on Patient placed in an exam room, on a stretcher, on pulse oximetry. bb 07:05 Jr Wheeler MD is Attending Physician. rn 07:08 CT Head C Spine In Process Unspecified. EDMS 08:10 Initial lab(s) drawn, by me, sent to lab. Missed attempt(s): 22 gauge in right mb4 antecubital area. 08:15 COVID swab sent to lab. Flu and/or RSV swab sent to lab. mb4 08:58 XRAY Chest (1 view) In Process Unspecified. EDMS 09:03 Rubi Solo, RN is Primary Nurse. iw 09:09 Missed attempt(s): 20 gauge in right antecubital area. iw 09:22 Inserted saline lock: 22 gauge in right hand, using aseptic technique. ll1 09:22 Inserted saline lock: 22 gauge in right antecubital area, using aseptic technique. ll1 09:47 CT Chest For PE Angio In Process Unspecified. EDMS 11:23 Ethan Fernandez is Hospitalizing Provider. rn 19:21 Primary Nurse role handed off by Rubi Solo, RN mw2 Administered Medications: 09:50 Drug: NS 0.9% 1000 ml Route: IV; Rate: 1000 ml; Site: right antecubital; iw 10:04 Drug: Zofran (Ondansetron) 4 mg Route: IVP; Site: right antecubital; iw 10:04 Drug: Tylenol 650 mg Route: PO; iw 10:04 Drug: SOLU-Medrol (methylPrednisoLONE) 125 mg Route: IVP; Site: right antecubital; iw 12:02 Drug: REGEN-COV Dose Pack 120 mg/mL-120 mg/mL (EUA) 600 mg Route: IV; Rate: calculated ld1 rate; Site: right antecubital; Intake: 06:49 PO: 0ml; Total: 0ml. bb Outcome: 11:24 Decision to Hospitalize by Provider. miguel 01/24 16:16 Patient left the ED. aa5 Signatures: Dispatcher [employer] EDJolynn Leon RN MIGUEL bb Rubi Solo RN RN Jr Wheeler MD MD rn Calderon, Audri, RN RN aa5 Neli Chan 2 Fiorella Naqvi mb4 Ayana Hernandez RN RN ll1 Rox Rodriguez RN RN ld1 Dee Santiago Corrections: (The following items were deleted from the chart) 01/23 06:55 06:53 PMHx: Diabetes mellitus; bb bb
--- NOTE | 2021-01-23 11:25 | EDPHYS ---
Physician Documentation [facility] Name: Tom Nagy Age: 55 yrs Sex: Male : 1965 Arrival Date: 01/23/2021 Time: 06:41 Bed 24 Private MD: ED Physician Jr Wheeler HPI: 01/23 07:21 This 55 yrs old Male presents to ER via Wheelchair with complaints of Fall rn Injury, Laceration To Head, CONFUSED. 07:21 Details of fall: The patient fell from an upright position. rn 07:21 The patient has experienced syncope, collapsed, lost consciousness. Onset: The rn symptoms/episode began/occurred just prior to arrival. Duration: This was a single episode. Context: occurred at home, occurred while the patient was standing, Just prior to the episode the patient experienced no apparent symptoms. Associated injury: Head/face: contusion, laceration, pain. Current symptoms: headache. The patient has not experienced similar symptoms in the past. The patient has not recently seen a physician. 07:29 Patient reports getting into the shower today then waking up on the ground. Had rn syncopal episode, unclear length of time down, reports woke up in a pool of blood. No anticoagulation. No symptoms prior to passing out. Reports feeling generalized weakness/cough/congestion/diarrhea over the last few days. Reports mild headache but denies any other focal injury or pain. Denies chest pain, denies abdominal pain.. Historical: - Allergies: 06:53 Sulfa (Sulfonamide Antibiotics); bb - Home Meds: 06:53 Lisinopril Oral [Active]; Hydrochlorothiazide Oral [Active]; Synjardy XR oral [Active]; bb - PMHx: 06:53 Hypertensive disorder; Diabetes mellitus; bb - Immunization history: Last tetanus immunization: 6 years ago. - Social history:: Smoking status: Patient denies any tobacco usage or history of. - Family history:: not pertinent. - Hospitalizations: : No recent hospitalization is reported. ROS: 07:30 Constitutional: Negative for fever, chills, and weight loss, Eyes: Negative for injury, rn pain, redness, and discharge, ENT: + nasal congestion Neck: Negative for injury, pain, and swelling, Cardiovascular: Negative for chest pain, palpitations, and edema, Respiratory: + cough Abdomen/GI: Negative for abdominal pain, nausea, vomiting, diarrhea, and constipation, Back: Negative for injury and pain, : Negative for injury, bleeding, discharge, and swelling, MS/Extremity: Negative for injury and deformity, Skin: + lacerations to scalp Neuro: + headache and generalized weakness Exam: 07:30 Constitutional: This is a well developed, well nourished patient who is awake, alert, rn and in no acute distress. Head/Face: To posterior occiput scalp lacerations each approximately 4 to 5 cm, superficial, no active bleeding, clean, no foreign bodies. No bony depression. Eyes: Periorbital areas with no swelling, redness, or edema. Neck: No midline cervical tenderness Cardiovascular: Tachycardic, regular. Respiratory: Speaking full sentences. No increased work of breathing, no retractions or nasal flaring. Abdomen/GI: Soft, non-tender, no masses Skin: Warm, dry MS/ Extremity: Pulses equal, no cyanosis. Neuro: Awake and alert, GCS 15, oriented to person, place, time, and situation. Cranial nerves II-XII grossly intact. Motor strength 5/5 in all extremities. Sensory grossly intact. Cerebellar exam normal. Normal gait. Able to get into bed on own power without assistance. Vital Signs: 06:49 BP 129 / 89; Pulse 109; Resp 16 S; Temp 99.6(O); Pulse Ox 94% on R/A; Weight 127.01 kg bb (R); Height 5 ft. 7 in. (170.18 cm); Pain 2/10; 06:49 Body Mass Index 43.85 (127.01 kg, 170.18 cm) bb Spencer Coma Score: 06:49 Eye Response: spontaneous(4). Verbal Response: confused(4). Motor Response: obeys bb commands(6). Total: 14. Trauma Score (Adult): 06:49 Eye Response: spontaneous(1); Verbal Response: confused(1); Motor Response: obeys bb commands(2); Systolic BP: > 89 mm Hg(4); Respiratory Rate: 10 to 29 per min(4); [place] Score: 14; Trauma Score: 12 Laceration: 07:49 Wound Repair of 4cm ( 1.6in ) subcutaneous laceration to scalp. Distal rn neuro/vascular/tendon intact. Wound prep: Moderate cleansing by me, Wound explored extensively. Skin closed with 4 35 wide [place] using staple gun. Dressed with 4x4's, Kerlix. Patient tolerated well. 07:49 Wound Repair of 5cm ( 2.0in ) subcutaneous laceration to scalp. Distal rn neuro/vascular/tendon intact. Wound prep: Moderate cleansing by me, Wound explored extensively. Skin closed with 5 35Wide [place] using staple gun. Dressed with 4x4's, Kerlix. Patient tolerated well. MDM: 07:05 Patient medically screened. rn 11:22 Differential Diagnosis: cardiac arrhythmia, vasovagal episode, Covid, viral infection, rn pneumonia, and urine infection. Data reviewed: vital signs, nurses notes, lab test result(s), EKG, radiologic studies, CT scan, plain films, and as a result, I will admit patient. Test interpretation: by ED physician or midlevel provider: ECG, plain radiologic studies, Chest x-ray with mild bilateral pulmonary opacities. Counseling: I had a detailed discussion with the patient and/or guardian regarding: the historical points, exam findings, and any diagnostic results supporting the discharge/admit diagnosis, lab results, radiology results, the need for further work-up and treatment in the hospital. Response to treatment: the patient's symptoms have mildly improved after treatment, and as a result, I will admit patient. Admission orders: after a detailed discussion of the patient's condition and case, the admit orders are written by me. ED course: Will admit patient for early Covid pneumonia, given comorbidities, still dyspneic, and presentation with syncope. CT PE negative.. 11:24 Data interpreted: cardiac monitor: rate is 105 beats/min, rhythm is regular, sinus rn tachycardia, with no ectopy, Interpretation: tachycardia, Pulse oximetry: on room air is 94 %. Interpretation: acceptable. 01/23 07:24 Order name: CBC with Diff rn 01/23 07:24 Order name: Basic Metabolic Panel rn 01/23 07:24 Order name: Procalcitonin rn 01/23 07:24 Order name: CRP rn 01/23 07:24 Order name: Ferritin rn 01/23 07:24 Order name: COVID-19 : Document "Date of Symptom Onset" if Symptomatic. rn 01/23 07:24 Order name: Magnesium; Complete Time: 09:14 rn 01/23 07:24 Order name: Protime (+inr); Complete Time: 09:06 rn 01/23 07:24 Order name: Ptt, Activated; Complete Time: 09:06 rn 01/23 07:24 Order name: Troponin (emerg Dept Use Only); Complete Time: 09:14 rn 01/23 07:25 Order name: CBC with Automated Diff; Complete Time: 09:06 EDMS 01/23 07:25 Order name: Basic Metabolic Panel; Complete Time: 09:14 EDMS 01/23 07:25 Order name: Procalcitonin; Complete Time: 09:47 EDMS 01/23 06:58 Order name: CT Head C Spine; Complete Time: 07:29 em 01/23 07:25 Order name: C-Reactive Protein; Complete Time: 09:14 EDMS 01/23 07:25 Order name: Ferritin; Complete Time: 09:14 EDMS 01/23 07:52 Order name: XRAY Chest (1 view); Complete Time: 09:14 rn 01/23 09:15 Order name: CT Chest For PE Angio; Complete Time: 10:19 rn 01/23 09:19 Order name: Urine Microscopic Only; Complete Time: 11:09 rn 01/23 09:19 Order name: Urine Culture rn 01/23 09:53 Order name: COVID-19/FLU A+B; Complete Time: 10:19 EDMS 01/23 10:36 Order name: Urine Dipstick-Ancillary; Complete Time: 10:46 EDMS 01/23 16:22 Order name: Lipid Profile; Complete Time: 17:15 EDMS 01/23 17:15 Order name: US; Complete Time: 17:15 EDMS 01/23 18:10 Order name: Hemoglobin A1c EDMS 01/23 22:47 Order name: Glucose, Ancillary Testing EDMS 01/24 05:45 Order name: CBC with Automated Diff EDMS 01/24 05:46 Order name: Basic Metabolic Panel EDMS 01/23 07:24 Order name: IV Start; Complete Time: 10:16 rn 01/23 07:24 Order name: EKG; Complete Time: 07:25 rn 01/23 07:24 Order name: Cardiac monitoring; Complete Time: 10:16 rn 01/23 07:24 Order name: EKG - Nurse/Tech; Complete Time: 10:16 rn 01/23 07:24 Order name: Labs collected and sent; Complete Time: 10:04 rn 01/23 07:24 Order name: O2 Per Protocol; Complete Time: 10:04 rn 01/23 07:24 Order name: O2 Sat Monitoring; Complete Time: 10:04 rn 01/23 09:19 Order name: Urine Dipstick-Ancillary (obtain specimen); Complete Time: 11:56 rn 01/23 14:25 Order name: Labs - recollect needed: recollect light green top; Complete Time: 15:32 bd Administered Medications: 09:50 Drug: NS 0.9% 1000 ml Route: IV; Rate: 1000 ml; Site: right antecubital; iw 10:04 Drug: Zofran (Ondansetron) 4 mg Route: IVP; Site: right antecubital; iw 10:04 Drug: Tylenol 650 mg Route: PO; iw 10:04 Drug: SOLU-Medrol (methylPrednisoLONE) 125 mg Route: IVP; Site: right antecubital; iw 12:02 Drug: REGEN-COV Dose Pack 120 mg/mL-120 mg/mL (EUA) 600 mg Route: IV; Rate: calculated ld1 rate; Site: right antecubital; Disposition Summary: 01/23/21 11:24 Hospitalization Ordered Hospitalization Status: Inpatient Admission rn Provider: Ethan Fernandez rn Condition: Stable rn Problem: new rn Symptoms: are unchanged rn Bed/Room Type: Standard rn Location: [facility] ER HOLD(01/23/21 15:02) iw Room Assignment: ERHOLD-(01/23/21 15:02) iw Diagnosis - Pneumonia due to SARS-associated coronavirus rn - Syncope and collapse rn - Unspecified injury of head, initial encounter rn - Laceration without foreign body of scalp, initial encounter rn Forms: - Medication Reconciliation Form rn - SBAR form rn Signatures: Dispatcher [employer] EDMS Sharifa Mata Brenda, RN RN bb Rubi Solo RN RN iw Jr Wheeler MD MD rn Dibbern, Lauren, RN RN ld1 Corrections: (The following items were deleted from the chart) 06:55 06:53 PMHx: Diabetes mellitus; cody ross 08:51 07:25 CORONAVIRUS ordered. EDMS EDMS 08:52 07:25 Influenza Screen (A \\T\\ B)+BA.LAB.BRZ ordered. EDMS EDMS 11:24 Telemetry/MedSurg (Inpatient) rn iw 15: 11:24 rn iw : 15:02 iw
[2021-01-23] MEDS ORDERED: CASIRIVIMAB/IMDEVIMAB 10 ML in NA CHLORIDE 0.9% 250 ML IV ONE (12:00)
[2021-01-23] MEDS ORDERED: MELATONIN 5 MG TABLET PO PRN (12:51)
[2021-01-23] MEDS ORDERED: GUAIFENESIN/CODEINE 5ML UCUP PO PRN (13:05)
[2021-01-23] MEDS: HYDROCODONE/APAP 5/325 MG TAB PO SCH ×2 (13:06→18:00)
[2021-01-23] MEDS: ASCORBIC ACID 500 MG TABLET PO SCH ×3 (13:09→21:00)
[2021-01-23] MEDS ORDERED: ACETAMINOPHEN 500 MG TAB PO PRN (13:17)
[2021-01-23] MEDS ORDERED: ONDANSETRON 4 MG/2 ML VIAL IV PRN (13:17)
--- NOTE | 2021-01-23 13:20 | P.HP ---
Certification for Inpatient Patient admitted to: Inpatient With expected LOS: >2 Midnights Patient will require the following post-hospital care: None Practitioner: I am a practitioner with admitting privileges, knowledge of patient current condition, hospital course, and medical plan of care. Services: Services provided to patient in accordance with Admission requirements found in Title 42 Section 412.3 of the Code of Federal Regulations Patient History Date of Service: 01/23/21 Reason for admission: Syncope Allergies Sulfa (Sulfonamide Antibiotics) Adverse Reaction (Unknown, Unverified 01/23/21 13:18) Hives/Rash Home medications list reviewed: No - Past Medical/Surgical History Diabetic: Yes -: HTN -: Morbid Obesity Past Surgical History: Reviewed- Non-Contributory - Family History Family History: Reviewed- Non-Contributory (Reviewed and patient unware of any family history) - Social History Smoking Status: Never smoker Alcohol use: No CD- Drugs: No Caffeine use: No Place of Residence: Home Review of Systems General: Weakness, Other (Fatigue ) Eyes: Unremarkable ENT: Unremarkable Respiratory: Cough Cardiovascular: Unremarkable Gastrointestinal: Unremarkable Genitourinary: Unremarkable Musculoskeletal: Unremarkable Integumentary: Unremarkable Neurological: Weakness, Other (headache, Loss of taste\smell ) Physical Examination - Physical Exam General: Alert, In no apparent distress, Oriented x3 HEENT: Atraumatic, PERRLA, Mucous membr. moist/pink, EOMI, Sclerae nonicteric Neck: Supple, 2+ carotid pulse no bruit, No LAD, Without JVD or thyroid abnormality Respiratory: Diminished Cardiovascular: No edema, Regular rate/rhythm, Normal S1 S2 Capillary refill: <2 Seconds Gastrointestinal: Normal bowel sounds, No tenderness Musculoskeletal: No clubbing, No tenderness Integumentary: No rashes, No tenderness/swelling Neurological: Normal gait, Normal speech, Normal strength at 5/5 x4 extr, Normal tone, Normal affect Lymphatics: No axilla or inguinal lymphadenopathy External genitalia: Deferred Rectal: Deferred - Studies Laboratory Data (last 24 hrs) 01/23/21 08:16: PT 13.4 H, INR 1.16, APTT 25.8 01/23/21 08:16: Sodium 135 L, Potassium 4.0, BUN 15, Creatinine 1.09, Glucose 172 H, Magnesium 2.0 01/23/21 08:16: WBC 6.50, Hgb 15.4, Hct 46.6, Plt Count 158 Assessment and Plan - Plan --Syncope. Unclear etiology. Neurology consulted. Echocardiogram and carotid Doppler pending. Will get some orthostatic vital signs. --COVID-19 pneumonia. Pulmonology consulted. Patient had a one-time dose of casirivimab and imdevimab. Patient placed on steroids and oral supplements. Further management per rope machine setter. COVID-19 infection. Continue current treatment regimen. Continue droplet, contact and airborne precautions. Further management per rope machine setter. --DM2. BS monitoring with sliding scale insulin. --Hypertension. We will manage BP with labetalol as needed. --Headache. Tylenol as needed. --Morbid obesity. Likely secondary to excess calories intake. Patient counseled on diet and exercise therapy. --Head laceration. CT head unremarkable for any acute intracranial abnormalities. Continue supportive care --DVT prophylaxis with Lovenox subQ I have had discussion about advanced directives with the patient and /or family during this hospital admission. Addressed code status and /or goals of care. Spent more than 15 minutes. Case discussed withpatient and nurse. Discharge Plan: Home Plan to discharge in: 48 Hours - Advance Directives Does patient have a Living Will: No Does patient have a Durable POA for Healthcare: No - Code Status/Comfort Care Code Status Assessed: Yes Code Status: Full Code Physician Review: Patient Assessed, Agree with Above Assessment and Plan Critical Care: No
[2021-01-23 16:31] VITALS: BMI 29.6
[2021-01-23 16:49] VITALS: O2SAT 96
[2021-01-23] MEDS ORDERED: D50W 25 GM/50 ML SYRINGE IV PRN (16:49)
[2021-01-23] MEDS ORDERED: GLUCAGON 1 MG/VIAL IM PRN (16:49)
[2021-01-23] MEDS ORDERED: ENOXAPARIN 40 MG/0.4 ML SQ ONE (16:58)
[2021-01-23] MEDS ORDERED: ASCORBIC ACID 500 MG TABLET ONE ×2 (16:58→23:00)
[2021-01-23] MEDS ORDERED: ENOXAPARIN 40 MG/0.4 ML SQ SCH (17:00)
--- NOTE | 2021-01-23 17:14 | RAD REPORT ---
EXAM DESCRIPTION: US - CP - 01/23/2021 4:56 pm CLINICAL HISTORY: Syncope Headache, drowsiness COMPARISON: Head C Spine Mpr Wo Con dated 01/23/2021 TECHNIQUE: Real-time sonographic evaluation of both carotid systems was performed. Doppler interroga tion was performed with waveform tracing bilaterally. FINDINGS: Normal high resistance waveforms are noted in both external carotid arteries. The common c arotid arteries and internal carotid arteries show normal low resistance waveforms. Minimal plaquing is present in both carotid systems. Peak systolic and end diastolic velocity values and the ICA/CCA ratios are in the non-hemodynamically significant range. Forward flow seen in the left vertebral artery. The right vertebral artery has a somewhat unusual demian earance with a echogenic linear structure within it. Recommend MRA of the neck vessels for further as sessment. IMPRESSION: No significant carotid stenosis is seen. Unusual echogenic linear structure in the right vertebral artery is of uncertain etiology or signific ance. Recommend follow-up MRA of the neck vessels for further assessment.
[2021-01-23] MEDS: INSULIN -REGULAR HUMAN 50 UNIT/0.5 ML ML SQ SCH (21:00)
[2021-01-23] MEDS: FAMOTIDINE 20 MG TAB PO SCH (21:00)
[2021-01-23] MEDS ORDERED: THIAMINE 200 MG/2 ML INJ IVP SCH (21:00)
[2021-01-23] MEDS: METHYLPREDNISOLONE 40 MG INJ IV SCH (21:00)
[2021-01-23] MEDS ORDERED: METHYLPREDNISOLONE 40 MG INJ ONE (23:00)
[2021-01-23] MEDS ORDERED: INSULIN -REGULAR HUMAN 50 UNIT/0.5 ML ML ONE (23:01)
[2021-01-23] MEDS ORDERED: FAMOTIDINE 20 MG TAB ONE (23:01)
[2021-01-24] MEDS: ALBUTEROL INHALER 60 PUFF/8 GM IH SCH ×2 (05:00→10:38)
[2021-01-24 05:39] LABS: Absolute Lymphocytes (CBC) 1.2 K/uL (0.7-4.9); Basophils % 0.1 % (0-1.3); Hematocrit 43.5 % (39.6-49.0); Lymphocytes % 14.8 % (15.3-44.8); MPV 8.2 fL (7.6-11.3); RBC Red Blood Cell Count 4.64 M/uL (4.33-5.43)
[2021-01-24 05:45] LABS: BUN Blood Urea Nitrogen 17 mg/dL (7-18); Bicarbonate 25 mmol/L (21-32); Glucose Level 215 mg/dL (74-106); Potassium 4.1 mmol/L (3.5-5.1); Sodium Level 137 mmol/L (136-145)
[2021-01-24] MEDS: HYDROCODONE/APAP 5/325 MG TAB PO SCH ×2 (06:00)
[2021-01-24] MEDS: INSULIN -REGULAR HUMAN 50 UNIT/0.5 ML ML SQ SCH (07:30)
[2021-01-24] MEDS ORDERED: ZINC SULFATE 220 MG CAP PO SCH (09:00)
[2021-01-24] MEDS: METHYLPREDNISOLONE 40 MG INJ IV SCH (09:00)
[2021-01-24] MEDS ORDERED: THIAMINE HCL 100 MG TABLET PO SCH (09:00)
[2021-01-24] MEDS: FAMOTIDINE 20 MG TAB PO SCH (09:00)
[2021-01-24] MEDS: ASCORBIC ACID 500 MG TABLET PO SCH (09:00)
[2021-01-24] MEDS ORDERED: VITAMIN D 1000 UNIT TAB PO SCH (09:00)
[2021-01-24] MEDS ORDERED: ASCORBIC ACID 500 MG TABLET ONE (10:06)
[2021-01-24] MEDS ORDERED: ZINC SULFATE 220 MG CAP ONE (10:06)
[2021-01-24] MEDS ORDERED: THIAMINE HCL 100 MG TABLET ONE (10:06)
[2021-01-24] MEDS ORDERED: VITAMIN D 1000 UNIT TAB ONE (10:06)
[2021-01-24] MEDS ORDERED: ALBUTEROL INHALER 60 PUFF/8 GM IH ONE (10:07)
[2021-01-24] MEDS ORDERED: METHYLPREDNISOLONE 40 MG INJ ONE (10:07)
[2021-01-24] MEDS ORDERED: FAMOTIDINE 20 MG TAB ONE (10:07)
[2021-01-24 10:37] VITALS: BP 125/75; TEMP 98.6
--- NOTE | 2021-01-24 12:25 | P.DS ---
Admission Date: 01/23/21 Discharge Date: 01/24/21 Disposition: ROUTINE DISCHARGE Discharge Condition: FAIR Reason for Admission: Syncope - Problems (1) Syncope and collapse Status: Acute (2) COVID-19 virus infection Status: Acute Brief History of Present Illness: 55-year-old gentleman with a history of hypertension was brought to the em ergency department after a syncopal episode. Patient reports experiencing coughing spells prior. He passed out in the bathroom, hit the back of his head on the floor. He does not remember the events immediately preceding the syncopal episode. He sustained a swelling and a small laceration in the occipital area. Patient tested positive for COVID 19 here. CTA thorax done in the emergency department demonstrated mild bilateral infiltrates. Patient hospitalized for further management. Hospital Course: Patient placed under observation. Carotid Doppler done showed no ICA stenosis. It did report some echogenic structure within the right vertebral artery. This needs to be followed with an MRA of the neck. Patient not orthostatic. Troponin trended negative. Patient could have experienced a tussive syncope. Troponin is negative. Echocardiogram done and the result is pending to be followed as an outpatient. Blood sugar slightly elevated, hemoglobin A1c of 6.2, no diabetes. Patient remained stable on room air, and asymptomatic from the COVID 19. He received 1 dose COVID vaccine about a week prior. Patient not needing oxygen at rest or with ambulation. Echocardiogram is unremarkable. Patient desires to go home. He is clinically stable. Patient will need MRA of the neck done as an outpatient. Vital Signs/Physical Exam: Temp Pulse Resp BP Pulse Ox 98.6 F 98 H 18 125/75 97 01/24/21 08:00 01/24/21 08:00 01/24/21 08:00 01/24/21 08:00 01/24/21 08:00 General: Alert, In no apparent distress, Oriented x3 HEENT: Mucous membr. moist/pink Neck: JVD not distended Respiratory: Clear to auscultation bilaterally, Normal air movement Cardiovascular: No edema, Regular rate/rhythm, Normal S1 S2 Gastrointestinal: Normal bowel sounds, Soft and benign, Non-distended, No tenderness Musculoskeletal: No swelling, No tenderness Integumentary: No rashes, Other (laceration on the occipitut.) Neurological: Normal gait, Normal speech, Normal strength at 5/5 x4 extr, Cranial nerves 3-12 intact Laboratory Data at Discharge: WBC 7.80 K/uL (4.3-10.9) D 01/24/21 05:09 Hgb 14.7 g/dL (13.6-17.9) 01/24/21 05:09 Hct 43.5 % (39.6-49.0) 01/24/21 05:09 Plt Count 158 K/uL (152-406) 01/24/21 05:09 PT 13.4 SECONDS (9.5-12.5) H 01/23/21 08:16 INR 1.16 01/23/21 08:16 APTT 25.8 SECONDS (24.3-36.9) 01/23/21 08:16 Sodium 137 mmol/L (136-145) 01/24/21 05:09 Potassium 4.1 mmol/L (3.5-5.1) 01/24/21 05:09 BUN 17 mg/dL (7-18) 01/24/21 05:09 Creatinine 0.78 mg/dL (0.55-1.3) 01/24/21 05:09 Glucose 215 mg/dL (74-106) H 01/24/21 05:09 Magnesium 2.0 mg/dL (1.8-2.4) 01/23/21 08:16 Triglycerides 122 mg/dL (<150) 01/23/21 15:28 Cholesterol 146 mg/dL (<200) 01/23/21 15:28 HDL Cholesterol 29 mg/dL (40-60) L 01/23/21 15:28 Cholesterol/HDL Ratio 5.03 01/23/21 15:28 Home Medications: Albuterol Inhaler [Ventolin Inhaler*] 2 puff IH Q6H #1 hfa.aer.ad 01/24/21 Ascorbic Acid [Vitamin C*] 1,000 mg PO TID #180 tablet 01/24/21 Aspirin [Aspirin EC 81 MG] 162 mg PO DAILY #60 tablet. 01/24/21 Cholecalciferol (Vitamin D3) [Vitamin D3] 4,000 unit PO DAILY #60 capsule 01/24/21 Famotidine [Pepcid*] 20 mg PO BID #60 tab 01/24/21 Guaifen W/Codeine Syrup [ROBITUSSIN A-C Syrup*] 10 ml PO QID PRN #1 bottle 01/24/21 Thiamine HCl [Vitamin B-1*] 200 mg PO DAILY #60 tablet 01/24/21 Zinc Sulfate [Zinc Sulfate*] 220 mg PO DAILY #30 cap 01/24/21 predniSONE [Deltasone] 20 mg PO BID #21 tab 01/24/21 New Medications: Aspirin [Aspirin EC 81 MG] 162 mg PO DAILY #60 tablet. Famotidine [Pepcid*] 20 mg PO BID #60 tab predniSONE [Deltasone] 20 mg PO BID #21 tab Guaifen W/Codeine Syrup [ROBITUSSIN A-C Syrup*] 10 ml PO QID PRN #1 bottle PRN Reason: Cough Albuterol Inhaler [Ventolin Inhaler*] 2 puff IH Q6H #1 hfa.aer.ad Thiamine HCl [Vitamin B-1*] 200 mg PO DAILY #60 tablet Ascorbic Acid [Vitamin C*] 1,000 mg PO TID #180 tablet Cholecalciferol (Vitamin D3) [Vitamin D3] 4,000 unit PO DAILY #60 capsule Zinc Sulfate [Zinc Sulfate*] 220 mg PO DAILY #30 cap Diet: AHA Activity: Ad gissell Followup: Will Charlton MD [ACTIVE - CAN ADMIT] - 1 Week Noam Morelos DO [Primary Care Provider] -
--- NOTE | 2021-01-24 13:51 | ECHO ---
HEIGHT: 5 ft 8 in WEIGHT: 195 lb 0 oz DATE OF STUDY: 01/24/[address]: Roxana Suarez 2-DIMENSIONAL: YES M.MODE: YES DOPPLER: YES COLOR FLOW: YES TDS: PORTABLE: DEFINITY: BUBBLE STUDY: DIAGNOSIS: SYNCOPE CARDIAC HISTORY: CATHERIZATION: SURGERY: PROSTHETIC VALVE: PACEMAKER: MEASUREMENTS (cm) DIASTOLIC (NORMALS) SYSTOLIC (NORMALS) IVSd 1.1 (0.6-1.2) LA Diam 4.0 (1.9-4.0) LVEF 75% LVIDd 5.4 (3.5-5.7) LVIDs 3.0 (2.0-3.5) %FS 45% LVPWd 1.4 (0.6-1.2) Ao Diam 3.5 (2.0-3.7) 2 DIMENSIONAL ASSESSMENT: RIGHT ATRIUM: NORMAL LEFT ATRIUM: NORMAL RIGHT VENTRICLE: NORMAL LEFT VENTRICLE: NORMAL TRICUSPID VALVE: NORMAL MITRAL VALVE: NORMAL PULMONIC VALVE: NORMAL AORTIC VALVE: NORMAL PERICARDIAL EFFUSION: NONE AORTIC ROOT: NORMAL LEFT VENTRICULAR WALL MOTION: NORMAL DOPPLER/COLOR FLOW: MILD TRICUSPID REGURGITATION. COMMENTS: NORMAL LEFT VENTRICULAR SIZE AND FUNCTION. MILD TRICUSPID REGURGITATION. NORMAL RIGHT VENTRICULAR SYSTOLIC PRESSURE. NO WALL MOTION ABNORMALITY. NO EFFUSION. TECHNOLOGIST: FEDERICO LEWIS
== END 2021-01-24 12:55 | disposition home or self-care (01) ==
LOC: ER 06:39 → ERHOLD 12:54 → INTOOBSV 12:54
PROVIDERS: ADMIT Internal Medicine; ATTEND Internal Medicine
PROC: 0JQ00ZZ Repair Scalp Subcutaneous Tissue and Fascia, Open Approach (ICD-10-PCS; principal; 2021-01-23)
DX: R55 Syncope and collapse (principal); U07.1 COVID-19; J12.82 Pneumonia due to coronavirus disease 2019; S01.91XA Laceration without foreign body of unspecified part of head, initial encounter; W19.XXXA Unspecified fall, initial encounter; Y93.E1 Activity, personal bathing and showering; Y92.002 Bathroom of unspecified non-institutional (private) residence as the place of occurrence of the external cause; E11.9 Type 2 diabetes mellitus without complications; I10 Essential (primary) hypertension; E66.01 Morbid (severe) obesity due to excess calories; Z68.29 Body mass index [BMI] 29.0-29.9, adult; Z88.2 Allergy status to sulfonamides
CPT/HCPCS: 12002; 93306; 87088; 85025 ×2; 87086; 80048 ×2; 36415 ×2; 83735; 85610; 80061; 82947; 85730; 83036; 84484; 82728; 84145; 0240U; 86140; 70450; 72125; 71275; 71045; 93880; 94010; 96375; 96374; 99284; Q9967; J1650; J7050; J7030; J2930; J2405; J2920 ×2; 81003; 81015

== ENCOUNTER 2021-08-14 05:30 | Observation (INO) | payer BC ==
--- NOTE | 2021-08-09 09:42 | RAD REPORT ---
EXAM DESCRIPTION: RAD - Chest Pa And Lat (2 Views) - 08/09/2021 9:19 am CLINICAL HISTORY: Pre op pending hip replacment COMPARISON: Portable October 23 TECHNIQUE: Frontal and lateral views of the chest were obtained. FINDINGS: The lungs are clear of mass or infiltrate. Interstitial pattern matches comparison. No hi lar mass or lymphadenopathy. Heart size is normal and central vasculature is within normal limits. N o pleural effusion or pneumothorax seen. No acute bony finding noted. No aortic abnormality. IMPRESSION: No acute cardiopulmonary process. No significant change from comparison study.
[2021-08-09 09:58] LABS: Urine Appearance CLEAR (Clear); Urine Bilirubin NEGATIVE (Negative); Urine Blood NEGATIVE (Negative); Urine Color YELLOW (Yellow); Urine Glucose 3+ (Negative); Urine Protein TRACE (Negative); Urine Specific Gravity >=1.030 (1.005-1.030); Urine Urobilinogen 0.2 mg/dL (0.2-1.0); Urine pH 5.5 (5.0-7.0)
[2021-08-09 10:00] LABS: Absolute Lymphocytes (CBC) 2.1 K/uL (0.7-4.9); Hematocrit 47.7 % (39.6-49.0); Lymphocytes % 27.2 % (15.3-44.8); MPV 8.8 fL (7.6-11.3); RBC Red Blood Cell Count 5.09 M/uL (4.33-5.43)
[2021-08-09 10:03] LABS: Protime INR 0.89
[2021-08-09 10:20] LABS: Urine Microscopic Reflex ORDER UMIC
[2021-08-09 10:23] LABS: Albumin 3.8 g/dL (3.4-5.0); Bilirubin Total 0.7 mg/dL (0.2-1.0); Protein, Total 7.3 g/dL (6.4-8.2)
[2021-08-09 11:24] LABS: Urine Bacteria <20 /HPF (NONE SEEN); Urine RBC NONE SEEN /HPF (NONE SEEN)
[2021-08-14] MEDS ORDERED: Oxycodone HCl/Acetaminophen 1 TAB TAB ONE (05:55)
[2021-08-14] MEDS ORDERED: GABAPENTIN 100 MG CAP ONE (05:55)
[2021-08-14] MEDS ORDERED: ACETAMINOPHEN 500 MG TAB ONE (05:56)
[2021-08-14] MEDS ORDERED: CEFAZOLIN/SWI 2gm 2 GM/20 ML SYR ONE (05:56)
[2021-08-14] MEDS ORDERED: LIDOCAINE 1% MPF 5 ML VIAL ONE ×2 (06:52→07:03)
[2021-08-14] MEDS ORDERED: FENTANYL CITR 100 MCG/2 ML ONE (07:03)
[2021-08-14] MEDS ORDERED: BUPIVACAINE 0.75% (PF) 2 ML SP ONE ×2 (07:03→07:04)
[2021-08-14] MEDS ORDERED: SODIUM BICARB 50 MEQ/50ML VIAL ONE (07:04)
[2021-08-14] MEDS ORDERED: Ringers Lactate 2,000 ML IV ONE (07:06)
[2021-08-14] MEDS ORDERED: MIDAZOLAM HCL 2 MG/2 ML INJ ONE (07:10)
[2021-08-14] MEDS: NA CHLORIDE 0.9% 1,000 ML ONE (07:31)
[2021-08-14] MEDS ORDERED: propofoL 200 MG/20 ML VIAL IV ONE (07:39)
[2021-08-14] MEDS ORDERED: LIDOCAINE 2% MPF 5 ML VIAL ONE (07:40)
[2021-08-14] MEDS ORDERED: NS 0.9% VIAL 10 ML ONE (07:40)
[2021-08-14] MEDS ORDERED: Phenylephrine HCl 10 MG/ML 1 ML VIAL ONE (07:40)
[2021-08-14] MEDS ORDERED: TRANEXAMIC ACID 1,000 MG in NA CHLORIDE 0.9% 50 ML IV SCH (08:00)
[2021-08-14] MEDS ORDERED: BUPIVACAINE 0.25% PF 10 ML VIAL ONE (10:02)
[2021-08-14] MEDS ORDERED: dexAMETHasone 10 MG/ML VIAL ONE (10:03)
--- NOTE | 2021-08-14 10:04 | RAD REPORT ---
EXAM DESCRIPTION: RAD - Hip Joint Unilat One View - 08/14/2021 9:34 am CLINICAL HISTORY: IN OR COMPARISON: Hip Left 2 View dated 07/16/2021 FINDINGS: Single intraoperative radiograph of the left hip demonstrating a left hip arthroplasty. Ov erlying surgical hardware. IMPRESSION: Left hip arthroplasty appears located on this view.
[2021-08-14] MEDS ORDERED: ONDANSETRON 4 MG/2 ML VIAL IV PRN (10:09)
[2021-08-14] MEDS ORDERED: DOCUSATE NA 100 MG CAP PO PRN (10:09)
--- NOTE | 2021-08-14 10:09 | P.BOP ---
Preoperative diagnosis: left severe DJD Postoperative diagnosis: same Primary procedure: left SANDHYA Estimated blood loss: 300 Anesthesia: General Complications: None Transferred to: Recovery Room Condition: Good
[2021-08-14 11:02] LABS: Hematocrit 43.2 % (39.6-49.0)
[2021-08-14] MEDS: INSULIN -REGULAR HUMAN 50 UNIT/0.5 ML ML SQ SCH ×3 (11:03→21:45)
--- OUTSIDE RECORDS SUMMARY | 2021-08-14 11:34 | XMS REPORT | Continuity of Care Document ---
:1965 Author Organization [facility] t Address [address] [place] [address] Care Team Providers Name Role Phone Melissa Morelos Attending Clinician Unavailable Lab, Fam Pob I Attending Clinician Unavailable Terrell ASSISTANT DIRECTOR OF PUBLIC WORKS Attending Clinician Doctor Unassigned, Name Attending Clinician Unavailable Payers Payer Name Policy Type Policy Number Effective Date Expiration Date S [place] [facility] CLAIMS [id number] Problems Condition Condition Condition Status Onset Resolution [...] 2018-12-29 Memoria 12-22 06:49:00 l RENAL 00:00: Stephen MASS 00 Active 12/22/2018 [place] Hypertensi Problem Resolve 2019-02-15 Memoria ve d 00:36:44 l disorder, [place] systemic Hypertensi arterial ve (disorder) disorder, systemic arterial (disorder) Resolved Problem 02/15/2019 [facility] Hyperlipid Problem Active 2019-02-15 M emoria emia 00:36:44 l (disorder) Tariq stoner Hyperlipid emia (disorder) Active Problem 02/15/2019 Medical [facility] Morbid Problem Active 2019-02-15 Memor ia obesity 00:36:44 l (disorder) Morbid Herm chano obesity (disorder) Active Problem 02/15/2019 Medical Group MALIGNANT Diagnosis Active 2019-02-03 Memoria NEOPLASM 11:23:00 l OF UNSP 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, MALIGNANT EXCEP NEOPLASM OF UNSP KIDNEY, EXCEP Active [facility] Allergies, Adverse Reactions, Alerts Allergy Allergy Status Severity Reaction(s) Onset Inactive Treating Comm ents Source Name Type Date Date Clinician Sulfa DA Active [facility] (Sulfona 6-19 Clear mide 00:00: [place] Antibiot 00 Regiona ics) [facility] NO KNOWN Drug Active Univers ALLERGIE Class ity of [facility] Sulfa Adverse Active Info Not [facility] Reaction Available [facility] Clinics sulfa sulfa Active [facility] drugs drugs [facility] Adhesive Adhesive Active Memori a Tape Tape [facility] Social History Social Habit Start Date Stop Date Quantity Comments Source Sex Assigned [facility] Exposure to Yes [facility] SARS-CoV-2 (event) [facility] Social History 2019-01-26 2019-01-26 [facility] Anosn marj 15:24:15 15:24:15 Smoking Status Start Date Stop Date Source Unknown if ever smoked [facility] Medications Ordered Filled Start Stop Current Ordering Indication Dosage Frequency Signature Comments Components Source Medication Medication Date Date Medication? Clinician (SIG) Name Name Hydrochloro Hydrochloro Yes Noam [address] [facility] thiazide thiazide 6-04 [facility] in the [facility] - 00:00: morning Memoria 00 [facility] Clinics Losartan Losartan Yes Noam [address] [facility] Potassium Potassium 6-04 [facility] Luke [facility] - 00:00: Memoria 00 [facility] ent [facility] Docusate Yes 100 mg = 1 Mem oria Sodium 100 8-21 cap, PO, l MG Oral 13:04: BID, # 90 Karen nn Capsule 00 cap, 0 [Colace] Refill(s), Pharmacy: [id number] tramadol 2019 Yes 50 mg = 1 Du erika hydrochlori 8-21 tab, PO, l de 50 MG 13:04: Q8H, PRN Karen nn Oral Tablet 00 Pain, X 20 day, # 60 tab, 0 Refill(s) rosuvastati No Notes: Du erika n 8- Same as l 02:00: Crestor [place] Entereg No Notes: Memoria 8- Same as: l 02:00: Entereg Stephen Maximum of 15 doses Alert Restricted medication Alvimopan (Entergen) order form must be completed prior to dispensing . ceFAZolin + No Notes: Du erika sterile 8- (Same As: l water 10 mL 00:00: Ancef, Herm chano Kefzol) MEDICATION WASTE Product Size: 1000 mg Product Wasted: ___ mg Hydralazine No 10 mg, Du erika 02-02 Route: l 17:57: IVP, [place] 00 Q20Min, Dosing Weight 124.545, kg, PRN Elevated BP, Start date: 02/02/19 12:57:00 CDT, Duration: 2 doses or times, Stop date: Limited # of times Labetalol No 10 mg, Memori a 20 Route: l 17:57: IVP, [place] 00 Q5Min, Dosing Weight 124.545, kg, PRN Elevated BP, Start date: 02/02/19 12:57:00 CDT, Duration: 5 doses or times, Stop date: Limited # of times Metoprolol 0 No 1 mg, Memori a 02-02 Route: l 17:57: IVP, [place] 00 Q5Min, Dosing Weight 124.545, kg, PRN Other -See Comment, Start date: 02/02/19 12:57:00 CDT, Duration: 5 doses or times, Stop date: Limited # of times Ketorolac 0 No 30 mg, Memori a 20 Route: l 17:57: IVP, ONCE, Stephen 00 Dosing Weight 124.545, kg, Start date: 02/02/19 12:57:00 CDT, Stop date: 02/02/19 12:57:00 CDT Acetaminoph 2019-0 No 1,000 mg, M emoria en 8 Route: PO, l 17:57: Drug form: Stephen 00 TAB, ONCE, Dosing Weight 124.545, kg, PRN Pain Score 1-3, Start date: 02/02/19 12:57:00 CDT Ibuprofen 2019-0 No 600 mg, Memor ia 8-20 Route: PO, l 17:57: Drug form: [place] 00 TAB, Q6H, Dosing Weight 124.545, kg, PRN Pain Score 1-3, Start date: 02/02/19 12:57:00 CDT, Duration: 30 day, Stop date: 03/04/19 12:56:00 CDT Fentanyl 2019-0 No 25 Memoria 8-20 microgram, l 17:57: Route: [place] 00 IVP, Q5Min, Dosing Weight 124.545, kg, PRN Pain Score 4-6, Priority: Routine, Start date: 02/02/19 12:57:00 CDT, Duration: 4 doses or times, Stop date: Limited # of times Hydromorpho 2019-0 No 0.5 mg, Mem oria ne 02-02 Route: l 17:57: IVP, Stephen 00 Q5Min, Dosing Weight 124.545, kg, PRN Pain Score 7-10, Start date: 02/02/19 12:57:00 CDT, Duration: 4 doses or times, Stop date: Limited # of times Flumazenil 2019-0 No 0.2 mg, Du erika 8 Route: l 17:57: IVP, PRN, Stephen 00 Dosing Weight 124.545, kg, PRN Benzodiaze pine Reversal, Initial dose, Start date: 02/02/19 12:57:00 CDT, Duration: 30 day, Stop date: 03/04/19 12:56:00 CDT Naloxone 2019-0 No 0.4 mg, Memori a 8 Route: l 17:57: IVP, [place] 00 Q2MIN, Dosing Weight 124.545, kg, PRN Narcotic Reversal, Start date: 02/02/19 12:57:00 CDT, Duration: 8 doses or times, Stop date: Limited # of times Diphenhydra 2019-0 No 12.5 mg, Me moria mine 02-02 Route: l 17:57: IVP, Drug Stephen 00 form: INJ, Q6H, Dosing Weight 124.545, kg, PRN Itching, Start date: 02/02/19 12:57:00 CDT, Duration: 30 day, Stop date: 03/04/19 12:56:00 CDT Meperidine 0 No 12.5 mg, Mem oria 02-02 Route: l 17:57: IVP, Stephen 00 Q30Min, Dosing Weight 124.545, kg, PRN Other -See Comment, For shivering, Start date: 02/02/19 12:57:00 CDT, Duration: 2 doses or times, Stop date: Limited # of times Ondansetron 0 No 4 mg, Memor ia 02-02 Route: l 17:57: IVP, ONCE, Stephen 00 Dosing Weight 124.545, kg, PRN Nausea & Vomiting, Start date: 02/02/19 12:57:00 CDT Promethazin 0 No 6.25 mg, Me moria e 02-02 Route: l 17:57: IVPB, [place] 00 ONCE, Dosing Weight 124.545, kg, PRN Nausea & Vomiting, Start date: 02/02/19 12:57:00 CDT 72 HR 0 No 1 patch, Memoria Scopolamine 02-02 Route: l 0.0139 17:57: TOP, Drug Tariq n MG/HR 00 Form: Transdermal ERFILM, Patch Dosing Weight 124.545, kg, ONCE, Apply behind ear. Avoid use in elderly., Start date: 02/02/19 12:57:00 CDT, Stop date: 02/02/19 12:57:00 CDT sugammadex 0 No Route: IV, M emoria (ANES) 02-02 Drug form: l 17:51: SOLN, [place] 00 ONCE, Stop date: 02/02/19 12:51:00 CDT Acetaminoph 2018-0 No Notes: Max Memoria en 02-02 acetaminop l 17:00: hen = [place] 00 4000mg/day (4 gm/day). (Same as: Tylenol) Methocarbam No Notes: Du erika ol 02-02 (Same l 17:00: as:Robaxin ) ondansetron No Route: IV, Memoria (ANES) 8- Drug form: l 16:58: INJ, ONCE, Stop date: 02/02/19 11:58:00 CDT acetaminoph No Route: IV, Memoria en (ANES) 02-02 Drug form: l 16:53: INJ, ONCE, Stop date: 02/02/19 11:53:00 CDT mannitol No Route: IV, Mem oria 25% 02-02 Drug form: l intravenous 15:57: INJ, ONCE, solution Stop date: (ANES) 02/02/19 10:57:00 CDT phenylephri No Route: IV, Memoria ne (ANES) 02-02 Drug form: l 15:16: INJ, ONCE, Stop date: 02/02/19 10:16:00 CDT dexamethaso No Route: IV, Memoria ne (ANES) 02-02 Drug form: l 15:05: INJ, ONCE Stop date: 02/02/19 10:05:00 CDT ciprofloxac No Route: IV, Memoria in (ANES) 02-02 Drug form: l 14:56: INJ, ONCE, Stop date: 02/02/19 9:56:00 CDT ceFAZolin No Route: IV, Me moria (ANES) 8- Drug form: l 14:56: INJ, ONCE, Stop date: 02/02/19 9:56:00 CDT rocuronium No Route: IV, M emoria (ANES) 8- Drug form: l 14:40: INJ, ONCE, Stop date: 02/02/19 9:40:00 CDT lidocaine No Route: IV, Me moria (ANES) 8- Drug form: l 14:35: INJ, ONCE, Stop date: 02/02/19 9:35:00 CDT propofol 2019-0 No Route: IV, Mem oria (ANES) 8-20 Drug form: l 14:35: INJ, ONCE, [place] 00 Stop date: 02/02/19 9:35:00 CDT midazolam No Route: IV, Me moria (ANES) 8-20 Drug form: l 14:09: SOLN, [place] 00 ONCE, Stop date: 02/02/19 9:09:00 CDT Docusate No Notes: Memoria Sodium 100 8-20 (Same as: l MG Oral 14:00: Colace) Stephen Capsule 00 (Do Not [Colace] Crush) sennosides, No Notes: Du erika [facility] HOME 8-20 (Same as: l 14:00: Senokot) Stephen [...] Drug form: l 200 13:10: INJ, Start [place] microgram 00 date: 02/02/19 8:10:00 CDT, Stop [...] a 8-20 (Same As: l 13:00: Ancef, [place] 00 Kefzol) MEDICATION WASTE Product Size: 1000 mg Product Wasted: ___ mg gabapentin No Notes: Memor ia 300 MG Oral 20 (Same as: l Capsule 13:00: Neurontin) heparin No Notes: Memoria 8-20 porcine l 13:00: heparin Calcium No 1,000 mL, Memor ia Chloride 02-02 Rate: 75 l 0.0014 12:59: ml/hr, MEQ/ML / 00 Infuse Potassium over: 13.3 Chloride hr, Route: 0.004 IV, Dosing MEQ/ML / Weight Sodium 124.545 Chloride kg, Total 0.103 Volume: MEQ/ML / 1,000, Sodium Start Lactate date: 0.028 02/02/19 MEQ/ML 7:59:00 Injectable CDT, Solution Duration: 30 day, Stop date: 03/04/19 7:58:00 CDT, 2.46, m2, 0 oxybutynin No Notes: Memor ia -20 Same as: l 12:59: Ditropan) Hydralazine No Notes: Du erika -20 (Same as: l 12:59: Apresoline ) Push over 5 minutes Dilaudid No Notes: Memoria 8-20 Same as: l 12:59: Dilaudid Lactated No Route: IV, Mem oria Ringers 8-20 Total l Injection 12:30: Volume: Karen nn IV (ANES) 00 1,000, 1000 mL Start date: 02/02/19 7:30:00 CDT, Stop date: 02/02/19 8:30:00 CDT Exparel No 266 mg, Memoria 820 Route: l 11:59: NERVE BLOCK, Dosing Weight 124.545, kg, ONCE, Start date: 02/02/19 6:59:00 CDT, Stop date: 02/02/19 6:59:00 CDT Mannitol Yes Notes: Memoria 02-02 (Same as: l 11:59: Osmitrol) [place] 00 Infuse through 5 micron or smaller filter WASTE: F/P - Sink; E - Municipal Trash Bin Exparel No Notes: Memoria - (Same as: l 23:00: Exparel) [place] NOT FOR IV use Postoperat bronwyn analgesia: [...] 0 l 12.5 MG / 14:53: Refill(s) ken valsartan 00 320 MG Oral Tablet neomycin 2018- No 1,000 mg = Mem oria 500 mg oral 8-13 2 tab, PO, l tablet 13:47: TID, take Tariq n 00 2 tablets at 4pm, 5pm, 10pm day before surgery, X 1 day, # 6 tab, 0 Refill(s), Pharmacy: [facility] #[id number] Metronidazo 2018- No 500 mg = 1 Memoria le 500 MG 8-13 tab, PO, l Oral Tablet 13:47: Q8H, take H ermann 00 1 tablet at 4pm, 5pm, 10pm day before surgery, X 1 day, # 3 tab, 0 Refill(s), Pharmacy: [facility] #[id number] gabapentin Yes 600 mg = 1 M emoria 600 MG Oral 8-13 tab, PO, l Tablet 13:47: Daily, 3 [place] 00 hours prior to surgery, # 1 tab, 0 Refill(s), Pharmacy: [facility] #[id number] methocarbam 2019 No 750 mg = 1 Memoria ol 750 mg 8-13 tab, PO, l oral tablet 13:47: Daily, Herm chano 00 take 3 hours prior to surgery, X 1 day, # 1 tab, 0 Refill(s), Pharmacy: [facility] #[id number] celecoxib Yes 200 mg = 1 Me moria 200 MG Oral 8-13 cap, PO, l Capsule 13:47: Daily, Stephen [Celebrex] 00 take 3 hours prior to surgery, # 1 cap, 0 Refill(s), Pharmacy: [facility] #[id number] Valsartan-H Valsartan-H Yes Noam [address] [facility] ydrochlorot ydrochlorot [facility] - hiazide hiazide Memoria l [facility]ics Rosuvastati Rosuvastati Yes Noam [address] [facility] [facility] n Calcium n Calcium [facility] Luke [facility] - Memoria l [facility] Clinics Synjardy XR Synjardy XR Yes Noam [address] [facility] Morelos with [facility] - breakfast Memoria l [facility] ent Clinics Vital Signs Vital Name Observation Time Observation Value Comments Source Height 2019-02-12 15:30:00 170.18 cm [facility] Weight 2019-02-12 15:30:00 [facility] BMI Calculated 2019-02-12 15:30:00 Memori al Stephen Temperature Oral (F) 2019-02-03 13:23:00 98.2 F [facility] Heart Rate 2019-02-03 13:23:00 [facility] Stephen Systolic (mm Hg) 2019-02-03 13:23:00 Du riaperri Stephen Diastolic (mm Hg) 2019-02-03 13:23:00 Mem orial Stephen Respitory Rate 2019-02-03 13:23:00 Memori al [place] Respitory Rate 2019-02-03 12:59:00 Memori al Stephen Temperature Oral (F) 2019-02-03 08:29:00 98.6 F [facility] Heart [facility] 2019-02-03 08:29:00 [facility] Respitory Rate 2019-02-03 08:29:00 Memori al [place] Systolic (mm Hg) 2019-02-03 08:29:00 Ud rial [place] Diastolic (mm Hg) 2019-02-03 08:29:00 Mem orial [place] Temperature Oral (F) 2019-02-03 03:59:00 98.4 F [facility] Stephen Heart Rate 2019-02-03 03:59:00 [facility] Stephen Systolic (mm Hg) 2019-02-03 03:59:00 Du rial [place] Diastolic (mm Hg) 2019-02-03 03:59:00 Mem orial [place] Height 2019-02-02 21:11:00 170.18 cm [facility] Stephen Weight 2019-02-02 21:11:00 [facility] Stephen BMI Calculated 2019-02-02 21:11:00 Memori al [place] Height 2019-01-26 14:52:00 170.18 cm [facility] [place] Weight 2019-01-26 14:52:00 [facility] Stephen BMI Calculated 2019-01-26 14:52:00 Memori al [place] Height 2019-01-08 13:53:00 170.18 cm [facility] [place] Weight 2019-01-08 13:53:00 [facility] Stephen BMI Calculated 2019-01-08 13:53:00 Memori al [place] Weight 2018-12-29 12:45:00 [facility] [place] BMI Calculated 2018-12-29 12:45:00 Memori al Stephen Height 2018-12-29 12:45:00 170.18 cm [facility] [place] Procedures Procedure Date / Time Performed Performing Clinician Rhona e Partial nephrectomy 2019-02-02 05:00:00 [facility] K[facility] 2008-06-16 00:00:00 Mahesh Mitchell Cholecystectomy 1989-06-16 00:00:00 [facility] ken Tonsillectomy 1967-06-16 00:00:00 [facility] Her ken Encounters Start End Encounter Admission Attending Care Care Encounter Source Date/Time Date/Time Type Type Clinicians Facility Department ID 2021-08-10 Outpatient Jethro [facility] [id number] [facility] 12:09:01 [facility] - Mahesh rayo Outpati ent Clinics 2021-07-16 Outpatient Jethro [facility] [id number] [facility] [facility] 13:18:01 [facility] Attila - Mahesh l Outpati ent Clinics 2021-07-11 Outpatient Morelos, [facility] [id number] [facility] 14:22:42 Noam [id number] [facility] 2021-07-11 Outpatient Morelos, [facility] [id number] [facility] [address] 14:22:00 Noam [id number] [facility] 2021-07-11 Outpatient Morelos, [facility] [id number] [facility] [address] 14:14:16 Noam [id number] [facility] 2021-07-11 Outpatient Morelos, [facility] [id number] [facility] 12:38:20 Noam [id number] [facility] 2021-07-11 Outpatient Morelos, [facility] [id number] [facility] [address] 12:35:32 Noam [id number] [facility] 2021-07-11 Outpatient Morelos, [facility] [id number] [facility] [facility] 12:34:25 Noam [id number] [facility] 2021-07-11 Outpatient Morelos, [facility] [id number] [facility] [facility] 12:32:45 Noam [id number] [facility] 2021-07-11 Outpatient Morelos, [facility] [id number] 12:09:45 Noam [id number] [facility] 2021-07-11 Outpatient Morelos, [facility] [id number] 12:06:15 Noam [id number] [facility] 2021-07-11 Outpatient Morelos, [facility] [id number] [facility] [address] 11:56:56 Noam [id number] [facility] 2021-07-11 Outpatient Morelos, [facility] [id number] 11:40:26 Noam [id number] [facility] 2021-07-11 Outpatient Morelos, [facility] [id number] [facility] 11:23:05 Noam [id number] [facility] 2021-07-11 Outpatient Morelos, [facility] [id number] 11:22:50 Noam [id number] [facility] 2021-07-11 Outpatient [place], [facility]LMLC [facility] [id number] 11:19:21 Noam [id number] [facility] 2021-07-11 Outpatient [place]los, [facility] [id number] [facility] 11:15:48 Noam [id number] [facility] 2021-07-25 2021-07-25 ambulatory [facility] [id number] [facility] 2021-07-23 2021-07-23 ambulatory [facility] [id number] [facility] 2021-07-16 2021-07-16 ambulatory [facility] [id number] [facility] 2021-07-16 2021-07-16 ambulatory [facility] [id number] [facility] 2021-05-25 2021-05-25 ambulatory [facility] [id number] [facility] 2021-05-23 2021-05-23 ambulatory [facility] [id number] [facility] 2021-05-03 2021-05-03 ambulatory [facility] [id number] [facility] 2021-05-01 2021-05-01 ambulatory [facility] [id number] [facility] 2021-02-01 2021-02-01 Outpatient [facility] [id number] [facility] 2021-01-26 2021-01-26 Outpatient [facility] [id number] [facility] 2020-09-28 2020-09-28 Outpatient [facility] [id number] [facility] 2020-08-23 2020-08-23 Outpatient [facility] [id number] [facility] 2020-08-16 2020-08-16 Outpatient [facility] [id number] [facility] 2020-08-09 2020-08-09 Outpatient [facility] [id number] [facility] 2020-05-24 2020-05-24 Outpatient [facility] [id number] [facility] 2020-05-23 2020-05-23 Outpatient R [facility] [id number] Univers 09:00:00 09:00:00 ity [facility] 2020-05-23 2020-05-23 Laboratory Lab, [facility] Fam [facility] I [facility] 1.2. [id number] [facility] 08:17:46 08:37:46 Only Anene, [facility] [id number] ity [facility] [id number] Ranjan as Professio [phone] Tn dical [address] Office [address] 2020-05-23 2020-05-23 Laboratory Lab, [facility] [id number] 08:17:46 08:37:46 Only Fam Pob I Health [id number] [place] [id number] Professio [phone] [place] [address] [address] 2020-05-23 2020-05-23 Letter Doctor DILCIA [id number] Univers 00:00:00 00:00:00 (Out) Unassigned, UZAIR [id number] ity of Liberal [facility] [id number] Ranjan as [phone] [address] 2020-05-23 2020-05-23 Letter Doctor DILCIA [id number] Univers 00:00:00 00:00:00 (Out) Unassigned, UZAIR [id number] ity of Liberal [facility] [id number] Ranjan as [phone] [address] 2020-05-16 2020-05-16 Outpatient [facility] [id number] [facility] 2020-05-08 2020-05-08 Outpatient [facility] [id number] [facility] 2020-02-08 2020-02-08 [facility] [id number] 08:00:00 08:00:00 [place] [employer] [facility] - Drive [facility] l Medicine Outpati ent Clinics 2019-11-17 2019-11-17 [facility] [id number] 14:50:00 14:50:00 [place] [employer] s - Drive [facility] l Medicine Outpati ent Clinics 2019-11-09 2019-11-09 [facility] [id number] [facility] 08:00:00 08:00:00 [place] [facility] Luke s - Drive [facility] l Medicine Outpati ent Clinics 2019-10-11 2019-10-11 [facility] [id number] 08:30:00 08:30:00 [place] [facility] s - Drive [facility] Medicine l Medicine Outpati ent Clinics 2019-09-13 2019-09-13 [facility] [id number] 08:30:00 08:30:00 [place] [facility] s - Drive [facility] Medicine l Medicine Outpati ent Clinics 2019-08-23 2019-08-23 [facility] [id number] 08:00:00 08:00:00 [place] [address] [place] [address] [place] - Drive [facility] Medicine Medicine Outpati ent Clinics 2019-05-24 2019-05-24 [facility] [id number] 08:15:00 08:15:00 [place] [address] [place] [address] [place] - Drive [facility] Medicine Outpati ent Clinics 2019-05-12 2019-05-12 [facility] [id number] [facility] 16:14:00 16:14:00 [address] [place] [address] [place] [address] [place] - Drive [facility] Medicine Medicine Outpati ent Clinics 2019-02-17 2019-02-17 [facility] [id number] 08:45:00 08:45:00 t [place] [employer] s - Drive [facility] Medicine Outpati ent Clinics 2019-02-12 2019-02-13 [place] [id number] Memoria 15:40:00 04:59:59 r Urology 03 l [facility] 2019-02-02 2019-02-03 Inpatient nullFlavo [facility] [id number] [facility] 12:59:00 15:21:00 r Stephen 01 [facility] 2019-02-02 2019-02-02 Inpatient U MHSE URO [id number] MH 07:59:00 05:15:00 [facility] 2019-01-26 2019-01-27 Outpatient nullFlavo [employer] [id number] Memoria 13:30:00 04:59:59 r Urology 02 l [facility] 2019-01-08 2019-01-09 [place] [id number] Memoria 14:00:00 04:59:59 r Urology 01 l [facility] 2018-12-29 2018-12-30 Outpatient nullFlavo [facility] [id number] Memoria 11:41:00 04:59:00 r [place] [address] [facility] 2018-12-29 2018-12-29 Outpatient MHSE URO [id number] MH 06:41:00 06:41:00 [facility] 2018-12-11 2018-12-11 Outpatient MHIE MHIE [id number] Memoria 09:15:00 09:15:00 00 l Stephen 2018-12-08 2018-12-08 [facility] [id number] [facility] 10:00:00 10:00:00 t AVST [facility] Medicine [facility] Results Test Description Test Time [...] (test code = MCH) 32.0 pg 27.0-31.0 [facility] [id number] 10:26:0033.4[facility] 2019-02-03 10:26:0013.8[facility] PjgcabxUIXXOOBZDM7389-49-26 10:26:94247Bpfbknpb NboygbjRVHJTDQHSI7130-33-83 10:26:008.9[facility]orial GjkppnoABMIIYJHJZ1411-20-52 10:26:0076.4[facility]orial BwmiunhEGDXDJURJL4864-21-66 10:26:0015.9[facility] [place] [id number] 10:26:006.9[facility]orial IeidobqVMGDFYNOVX5277-08-42 10:26:000.6 Memorial MqcfbidYCJSUWTPWX9226-94-92 10:26:000.2[facility] 2019-02-03 10:26:0010.2[facility] FmixwisPHXAZFRKMF8977-74-76 10:26:002.1[facility]orial XtkzdmiVGUPVBUKZN9966-40-37 10:26:000.9[facility]orial JcbnauyFIJRZYDNVH6780-67-62 10:26:000.1[facility] HermannCHEM FUYHW3587-33-51 17:49:001.19[facility] HermannCHEM IFGNO5530-27-98 17:49:69851Wnrmnaou HermannCHEM JLXNO3073-53-02 17:49:004.1 [facility]annCHEM KMOTZ2804-65-44 17:49:68561Bubivzeh HermannCHEM PANEL 2019-02-02 17:49:0022[facility] HermannCHEM UJSDF5448-64-30 17:49:007.8[facility] HermannCHEM OGDEA4403-48-46 17:49:0068[facility]annCHEM VHIQR6734-00-66 17:49:0013.1[facility] GhfvjacJQSLUCVQUD1810-64-49 17:49:0014.4[facility] [place] UMVYHDQHRL3125-38-33 17:49:0043.4[facility] HermannCHEM ZROOQ1649-12-74 17:49:00 167[facility] HermannCHEM OHXFJ5230-38-52 17:49:0015[facility] [id number] 15:08:00Negative (01/26/19 10:08 AM)[facility] MLMSHSXICJZX5052-53-51 15:08:0011.8[facility] WbtfgufTNWFQQWLKRZF7829-40-84 15:08:14409Qhxmihta WmxafkyMNRTWHGDCVDD1745-73-43 15:08:0019[facility] STSPTJVOCAUL5297-46-53 15:08:001.05[facility] IdbixjrZWHFCZJFSEHR2652-00-35 15:08:67323Atfjeezp JbpwmzcFCRJDFLSYCRO9205-25-25 15:08:003.8[facility] TQJRUCQKXBDY1220-52-13 15:08:34948Gdlfctdl BxshklxYZBVMMICLJWN4060-77-54 15:08:0029[facility] RwnlnqyDWKKXENZQCDA1794-65-91 15:08:009.0[facility] OXAYRFTYXTUU3664-79-97 15:08:0080[facility] QpobtbrQDWXJIRBIG6630-03-74 15:08:00 9.0[facility] NulikgmMCWVFLRRSR3558-70-60 15:08:004.52[facility] 2019-01-26 15:08:0014.5[facility] VsypterCJHIBCJAFV1724-74-85 15:08:0042.1[facility] HwqraufGKGDVJWXWK2887-75-23 15:08:0093.2[facility] ZaxwbauIOKPAVIMIQ9066-21-04 15:08:00 Test Item Value Reference Range Interpretation Comments MCH (test code = MCH) 32.1 pg 27.0-31.0 [facility] OmqwwsaVKUMGPBZTV8463-56-79 15:08:0034.4[facility] 2019-01-26 15:08:0013.8[facility] AwvnitsKCWLEFTFKZ9867-64-95 15:08:33597Kmympkep EhjxqvyKWRRSGJCNV2118-19-27 15:08:009.1[facility] OkfohtwFIBXWATKCI6546-65-71 15:08:00 Test Item Value Reference Range Interpretation Comments PT (test code = PT) 12.8 s 12.0-14.7 [facility] KhbwzezGZOPYYCKUQ7097-88-12 15:08:00 Test Item Value Reference Range Interpretation Comments PTT (test code = PTT) 29.5 s 22.9-35.8 [facility] XheujxdUBRMIFPBFA1637-79-94 15:08:00 Test Item Value Reference Range Interpretation Comments INR (test code = INR) 0.98 1 0.85-1.17 [facility] UbvszkrPNQGAIQXJT6376-71-61 15:08:0064.0[facility] 2019-01-26 15:08:0025.7[facility] DwusvztAKDFXBZUMY8558-98-29 15:08:006.8[facility] UstjoodHHGTWXJKIL1777-35-12 15:08:003.2[facility] AbqakygTVVGSAJBAN4511-84-87 15:08:000.3[facility] VdfbvhlRSWBPTCPQJ5762-78-18 15:08:005.7[facility] HDPALSWELA1191-76-24 15:08:002.3[facility] MluhwntJXKRRXSLHL1344-35-84 15:08:000.6 [facility] PexdpeiFVUGYRBIPY8787-02-12 15:08:000.3[facility] ST[facility]OL 2019-01-26 15:08:00Clear (01/26/19 10:08 AM)[facility] 2019-01-26 15:08:00 Test Item Value Reference Range Interpretation Comments UA Spec Grav (test code = UA Spec 1.009 1 Grav) [facility] MPYWQ3846-61-29 15:08:00 Test Item Value Reference Range Interpretation Comments UA pH (test code = UA pH) 8.0 1 5.0-8.0 [facility] EGUDJ4436-27-47 15:08:00Negative *NA*(01/26/19 10:08 AM)[facility] ZHNGU1675-01-33 15:08:00Negative (01/26/19 10:08 AM) [facility] NJUIP9713-11-57 15:08:00Negative (01/26/19 10:08 AM) [facility] LLHRP2729-87-88 15:08:00Negative (01/26/19 10:08 AM) [facility] SQEYE5907-44-74 15:08:001[facility] WEEQO6739-47-54 15:08:002[facility] EUNCZIY5978-30-32 14:54:00 Product available (01/26/19 9:54 AM)[facility]- MRI ABDOMEN W/CONT 2018-12-04 09:33:00 FAX: Adryan Coreas MD [phone] [place]: St: DIS Name: J[facility] GARC[facility] Dory Pruitt : 1965 Age/S: 53/M [address] [place] [address] Unit#: [id number] Loc: G.6[address] [place] [address] Phys: Adryan Marinelli MD Acct: [id number] Dis Date: 20181203 Status: DIS IN PHONE #: [phone] Exam Date: 12/03/2018 171 FAX #: [phone] Reason: renal mass protocol. EXAMS: CPT CODE: [id number] MRI ABDOMEN W/CONT 26467 PROCEDURE: MRI ABDOMEN WITH AND WITHOUT CONTRASTINDICATION: [...] Signed Report (CONTINUED) FAX: Adryan Coreas MD [phone] [place]: St: DIS-------- Name: JIM GARCIA [facility] : 1965 Age/S: 53/M [address] [place] [address] Unit #: [id number] Loc: G.[address] [place] [address] Phys: Adryan Marinelli MD Acct: [id number] Dis Date: Status: DIS IN PHONE #: [phone] Exam Date: 12/03/2018 171 FAX #: [phone] Reason: renal mass protocol. EXAMS: CPT CODE: [id number] MRI ABDOMEN W/CONT 93260 <Continued> demonstrates mild delayed enhancement pattern. These [...] cysts. 4. Hepatic steatosis. 5. Splenomegaly. SL: [id number] at 0933 Reported and signed by: Wilber Feng M.D. CC: Adryan Marinelli MD Technologist: Hernan Neville RT(R)(MRI) Trnscrd Date/Time/By: 12/04/2018 (33) : By: BangKWL Orig Print D/T: S: 12/04/2018 (2030) PAGE 2 Signed JmuzypOENU6K% 2018-12-03 08:21:00 Test Item Value Reference Range Interpretation Comments HGBA1C% (test code = HGBA1C%) 6.4 %A1C 4.8-6.0 H COMPREHENSIVE METABOLIC JEHGO6701-54-30 07:54:00 Test Item Value Reference Range Interpretation [...] TOTAL (test code = ALKP) CBC W/AUTO [id number] 07:43:00 Test Item Value Reference Range Interpretation [...] code NO = MDIFF) - US RETROPERITONEAL [id number] 18:22:00 Name: J[facility] GARC[facility] Grover : 1965 Age/S: 53 / M [address] [place] [address] Unit #: [id number] Loc: [place], [place] Phys: Adryan Marinelli MD Acct: [id number] Dis Date: Status: ADM IN PHONE #: [phone] Exam Date: 12/02/2018 1804 FAX #: [phone] Reason: possible renal mass EXAMS: CPTCODE: [id number] US RETROPERITONEAL COM 01602 PROCEDURE: RENAL ULTRASOUND INDICATION: Possible renal mass. [...] PAGE 1 Signed Report (CONTINUED) Name: J[facility] GARC[facility] Gro[place] : 1965 Age/S: 53 / M [address] [place] [address] Unit #: [id number] Loc: [place] [address] Phys: Adryan Marinelli MD Acct: [id number] Dis Date: Status: ADM IN PHONE #: [phone] Exam Date: 12/02/2018 1804 FAX #: [phone] Reason: possible renal mass EXAMS: CPT CODE: [id number] [employer] [facility] [address] <Continued> at 1822 Reported and signed by: Elvis Gage M.D. CC: Adryan Marinelli MD Technologist: Kuldip Murillo RDMS (AB) (OB) Trnscb Date/Time: 12/02/2018 (1821) [email or web address] Orig Print D/T: S: 12/02/2018 (1825) Probe: PAGE 2 Signed Report- CT ABD PELVIS W/O [id number] 16:38:00 Name: JIM GARCIA [facility] : 1965 Age/S: 53 / M [address] [place] [address] Unit #: [id number] Loc: [place] [id number] Phys: Adryan Marinelli MD Acct: [id number] Dis Date: Status: ADM IN PHONE #: [phone] Exam Date: 12/02/2018 1608 FAX #: [phone] Reason: uti andsepsis EXAMS: CPTCODE: [id number] CT ABD PELVIS W/O CONT 97358 PROCEDURE: CT ABDOMEN AND PELVIS WITHOUT CONTRAST [...] 1 Signed Report (CONTINUED) Name: JIM GARCIA [facility] : 1965 Age/S: 53 / M [address] [place] [address] Blvd Unit #: [id number] Loc: [place] [address] Phys: Adryan Marinelli MD Acct: [id number] Dis Date: Status: ADM IN PHONE #: [phone] Exam Date: 12/02/2018 1608 FAX #: [phone] Reason: uti and sepsis EXAMS: CPT CODE: [id number] CT ABD PELVIS W/O CONT 69098 <Continued> PERITONEUM: No free intraperitoneal fluid or [...] diverticulosis, no CT evidence for diverticulitis. SL: [id number] at 1638 Reported and signed by: Sloan Cummins M.D. CC: Adryan Marinelli MD Technologist:Myra Anne, RT(R) CTDI: DLP: Trnscb Date/Time: 12/02/2018 (1637) t.LACHO Orig Print D/T: S: 12/02/2018 (4733) PAGE 2 Signed Report PROCALCITONIN (PCT)2018-12-02 14:34:00 [...] concentrations <2 ng/mL are obtained. HEPATIC FUNCTION [id number] 12:43:00 Test Item Value Reference Range Interpretation [...] IUnit/L 20-125 N code = ALKP) PROTHROMBIN [id number] 12:42:00 Test Item Value Reference Range Interpretation [...] o prevent recurre nt infarct). THROMBOPLASTIN TIME [id number] 12:42:00 Test Item Value Reference Range Interpretation Comments THROMBOPLASTIN TIME 27.5 Seconds 25.0-39.5 N Ther apeutic PARTIAL (test code = Range: 50.4 - 88.3 PTT) Seconds Effective 09/29/2018 CBC W/AUTO [id number] 12:30:00 Test Item Value Reference Range Interpretation [...] REQUIRED (test NO code = MDIFF) URINALYSIS [id number] 12:29:00 Test Item Value Reference Range Interpretation [...] NONE SEEN A COMMENTS: Clean CatchUA CULT [id number] 12:29:00 Test Item Value Reference Range Interpretation Comments UA CULTURE NEEDED? YES,WBC>10 & Culture Chk Criteria met, (test code = EPI<=25 Criteria Urine Cultu re UACULT) in-process. COMMENTS: Clean Catch- XR CHEST 2 [id number] 12:21:00 FAX: Gabriela Horton MD [phone] [place]: St: REG Name: [facility] Gro[place] : 1965 Age/S: 53/M [address] [place] [address] Unit#: [id number] Loc: [place] [address] Phys: Gabriela Espinoza MD Acct: [id number] Dis Date: Status: REG ER PHONE #: [phone] Exam Date: 12/02/2018 1221 FAX #: [phone] Reason: acute SOB EXAMS: CPT CODE: [id number] XR CHEST 2 V 10458 EXAM: XR CHEST 2 VIEWS DATE: 12/02/2018 [...] normal. IMPRESSION: No acute cardiopulmonary process. SL: [id number] at 1221 Reported and signed by: Kindra Morelos D.O. 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 LACTIC ACID [id number] 12:08:00 Test Item Value Reference Range Interpretation Comments LACTIC ACID POC 1.7 MMOL/L 0.90-1.70 N Performed by certified (test code = LACTP) boat operator at [facility] CHEMISTRY 8 [id number] 12:08:00 Test Item Value Reference Range Interpretation [...] ML/MIN (test code = GFRBED) CHEMISTRY 8 [id number] 12:08:00 Test Item Value Reference Range Interpretation Comments ISTAT-SODIUM (test 138 MMOL/L 134-147 N code = NAP) ISTAT-POTASSIUM (test 3.4 MMOL/L 3.4-5.0 N code = KP) ISTAT-CHLORIDE (test 100 MMOL/L 100-108 N Perform ed by code = CLP) certified opera tor at [facility] ISTAT CARBON DIOXIDE 23.0 mmol/L 21-33 [...]
[2021-08-14 11:52] VITALS: O2SAT 95
[2021-08-14] MEDS ORDERED: CEFAZOLIN 1 GM in NA CHLORIDE 0.9% 50 ML IVPB SCH (12:00)
[2021-08-14] MEDS: FENTANYL CITR 100 MCG/2 ML ONE ×3 (12:33→12:50)
[2021-08-14] MEDS: CEFAZOLIN 1 GM in NA CHLORIDE 0.9% 50 ML IVPB SCH ×3 (14:21→23:59)
[2021-08-14 14:31] VITALS: BMI 44.6
--- NOTE | 2021-08-14 14:45 | P.CNS ---
Date of Consult: 08/14/21 Consultation: August 15, 2019 Reason for consultation: Medical management History of present illness Patient is a 55-year-old male with a known past medical history of hypertension and type 2 diabetes mellitus. He is currently admitted under orthopedic surgery for an elective left total hip arthroplasty. Today's postop day 0. He was seen by me postoperatively for medical management. Patient's pain was controlled. His mental status was intact. He is requiring supplemental oxygen via nasal cannula. He has no known history of structural lung disease. Denies any history of tobacco smoking. 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 Family historynoncontributory Physical exam Temperature 97.8. Pulse 86. Respiratory rate 18. Blood pressure 131/76. Oxygen saturation 95% on room air. General: In no acute distress HEENT: Head atraumatic and normocephalic. EOM intact Pulmonary: Lungs are clear to auscultation bilaterally. No wheezing or crackles CVS: Normal S1-S2 Abdomen: Obese. Nontender, nondistended Extremities: Left hip mildly tender to palpation. No edema Skin: Warm and well perfused Psych: Mood and affect appropriate Assessment Patient is a 55-year-old male currently admitted under orthopedic surgery. He had just undergone a left total hip arthroplasty. Medicine was consulted for medical management Plan: We will put patient on insulin sliding scale He is currently working with physical therapy Discharge after PT and orthopedic surgery clearance Continue pain control DVT prophylaxis as per primary team Thank you for this consult. Please feel free to reach out to the hospitalist nutrition helper for any questions.
[2021-08-14] MEDS: HYDROCODONE/APAP 7.5/325 MG TAB PO PRN ×2 (16:07→20:12)
[2021-08-14] MEDS ORDERED: hydroCHLOROthiazide 12.5 MG CAP PO PRN (17:21)
[2021-08-14 17:40] LABS: Hematocrit 44.2 % (39.6-49.0)
[2021-08-14] MEDS ORDERED: TAMSULOSIN 0.4 MG SR CAP PO SCH (21:00)
[2021-08-14] MEDS ORDERED: ROSUVASTATIN 10 MG TAB PO SCH (21:00)
[2021-08-14] MEDS ORDERED: HOME MED 1 EA UNK (Rosuvastatin Calcium [Rosuvastatin Calcium] 20 MG Tablet) PO SCH (21:00)
--- NOTE | 2021-08-14 21:52 | OP ---
Date of Procedure: 08/14/2021 Surgeon: Elvis Bledsoe MD Preoperative Diagnosis: Left hip severe arthritic changes. Postoperative Diagnosis: Left hip severe arthritic changes. Procedure: Left hip total hip arthroplasty using the [place] system. Estimated Blood Loss: 300 cc. Complications: There were no complications. Indications For Operation: Mr. Nagy is a 55-year-old male, who has been suffering from left hip pain for a number of years, becoming worse and worse, essentially limiting all of his activities of daily living. He has x-rays that demonstrate profound arthritic changes and risks, benefits, and alternat luke to different methods of treating this have been discussed and actually tried without success. H e states he understands things as presented and wishes to proceed. He does know that being slightly heavier carries a higher risk, but agrees to proceed. Procedure In Detail: Patient was taken to the operating room, placed in supine position. General an esthesia was obtained by staff. Following this, he was then rolled right side down and appropriately positioned using hip positioners. All bony prominences were being checked with an axillary roll. A fter this, the left lower extremity was then prepped and draped in usual sterile fashion for arthropl asty. This was taken down carefully through skin and soft tissues. Meticulous hemostasis being main tained using Bovie electrocautery. There was a generous amount of adipose tissue. However, the plan e of dissection was ideal and a small idalia was made in the fascia. Finger was placed through and the gluteal tendon was palpated to ensure the correct placement of the incision. This has been taken up to near the tip of the greater trochanter where the gluteal muscle was encountered. This was then s pread using finger pressure. Charnley was carefully placed to avoid the sciatic nerve and the film replacement orderer al rotators and capsule were then taken down carefully. It should be noted he has essentially no int ernal rotation, making the dissection somewhat more tedious. However, we were able to achieve good e xternal rotators and capsular release. This was followed by dislocation of the hip. The head itself was extremely malformed with generous osteophytes. The neck was then cut in standard fashion for th e removal of the head. This allowed for visualization of the acetabulum, which was definitely enlarg ed with osteophytes, anterior and inferior, which are gently debrided along with the labrum. After t his, it was then sequentially reamed until there was good bleeding bone. The acetabulum was then ham mered into place. Attention was then turned to the femur, which was lateralized and canal-finding re amer was used followed by broaching, which was broached up sequentially and x-ray arrives. X-ray was taken to ensure that the cup was in good position as well as the well seated. It does feel well sea julia with finger pressure. The x-ray does demonstrate that the last broach was used is near large jenny ugh, however, did anticipate slightly larger. An additional broach was used to enlarge this. This w as followed by placement of the minor as well as the final stem. It was then trialed with a neutral. Neutral falls into place easily, being stable to flexion of 90 degrees, internal rotation to 40 deg tiki, and adduction. The anterior lip was palpated with a finger. There were some osteophytes, whic h were further removed. Following this, the final ball was then gently tapped into place. It was ag ain reduced. It was again stable in the above directions with no sign of change of the position of t he acetabulum. The wound was copiously irrigated and external rotators and capsule were applied back via bone tunnels. This was followed by irrigation again with a watertight closure of the fascia usi ng heavy Vicryl sutures, followed by closure of the skin using Vicryl followed by americo. Patient w as then placed in an Aquacel dressing, awakened, and taken to recovery room in good condition. There were no complications. /TABBY Voice ID: [id number] Report ID: [id number]
[2021-08-15] MEDS: HYDROCODONE/APAP 7.5/325 MG TAB PO PRN ×3 (01:09→15:18)
[2021-08-15 06:07] LABS: Absolute Lymphocytes (CBC) 1.4 K/uL (0.7-4.9); Hematocrit 41.4 % (39.6-49.0); Lymphocytes % 12.6 % (15.3-44.8); MPV 9.5 fL (7.6-11.3); RBC Red Blood Cell Count 4.34 M/uL (4.33-5.43)
[2021-08-15 06:23] LABS: BUN Blood Urea Nitrogen 12 mg/dL (7-18); Bicarbonate 25 mmol/L (21-32); Glucose Level 164 mg/dL (74-106); Potassium 4.1 mmol/L (3.5-5.1); Sodium Level 140 mmol/L (136-145)
[2021-08-15] MEDS: INSULIN -REGULAR HUMAN 50 UNIT/0.5 ML ML SQ SCH ×3 (07:30→16:43)
[2021-08-15] MEDS ORDERED: ENOXAPARIN 40 MG/0.4 ML SQ SCH (09:00)
[2021-08-15] MEDS ORDERED: LOSARTAN POTASSIUM 50 MG TABLET PO SCH (09:00)
[2021-08-15] MEDS ORDERED: HOME MED 1 EA UNK (Zinc [Zinc] 50 MG Tablet) PO SCH (09:00)
[2021-08-15] MEDS ORDERED: ZINC SULFATE 220 MG CAP PO SCH (09:00)
[2021-08-15] MEDS ORDERED: ASCORBIC ACID 500 MG TABLET PO SCH (09:00)
[2021-08-15] MEDS ORDERED: HOME MED 1 EA UNK (Losartan Potassium [Losartan Potassium] 100 MG Tablet) PO SCH (09:00)
[2021-08-15] MEDS ORDERED: VITAMIN B COMPLEX 1 CAP PO SCH (09:00)
--- NOTE | 2021-08-15 09:19 | P.PN ---
Subjective Date of Service: 08/15/21 Subjective: Improving (No acute events overnight. POD#1 S/P L SANDHYA. Pain is controlled) Physical Examination - Vital Signs Temperature: 97.0 F Blood Pressure: 141/65 Pulse: 79 Respirations: 16 Pulse Ox (%): 96 - Physical Exam General: Alert, In no apparent distress, Cooperative HEENT: Atraumatic, Normocephalic Respiratory: Other (Breathing is not laboured on room air) Cardiovascular: No edema Neurological: Normal speech, Normal affect - Studies Laboratory Data (last 24 hrs) 08/15/21 05:31: Sodium 140, Potassium 4.1, BUN 12, Creatinine 0.84, Glucose 164 H 08/15/21 05:31: WBC 11.00 H D, Hgb 13.6, Hct 41.4, Plt Count 199 08/14/21 17:11: Hgb 14.5, Hct 44.2 08/14/21 10:52: Hgb 14.3, Hct 43.2 Assessment And Plan Physician Review Additional Text: 08/15/21 09:18 Assessment Patient is a 55-year-old male currently admitted under orthopedic surgery. He had just undergone a left total hip arthroplasty. Medicine was consulted for medical management Plan: Continue PT/OT while in-house Hospital stay is unremarkable He can be discharged once cleared by Ortho
[2021-08-15 13:24] VITALS: BP 125/70; TEMP 97.6
--- NOTE | 2021-08-16 09:30 | DS ---
Date of Discharge: 08/15/2021 Check Scaler: Hospitalist consult. Preadmission Diagnosis: Severe left hip arthritis. Postadmission Diagnosis: Severe left hip arthritis. Primary Procedure: Left total hip arthroplasty. Surgeon: Elvis Bledsoe MD. Hospital Course: The patient had uneventful surgery. Day of admission, he says he was up walking th e day of admission and has actually done stairs. At the time of discharge, he is tolerating his diet . He is aware of hip precautions, also aware of his discharge plan. His incision is clean, dry, and intact. Disposition: To home with home health with continuing home medications as well as adding of pain med ications and blood thinners, which had been electronically transferred to his pharmacy of choice. We will plan on seeing him back in 2 weeks for evaluation and staple removal. All of his questions hav e otherwise been answered. /TABBY Voice ID: [id number] Report ID: [id number]
== END 2021-08-15 18:30 | disposition home health service (06) ==
LOC: OR 05:30 → 2ND 11:30
PROVIDERS: ADMIT Orthopaedic Surgery; ATTEND Orthopaedic Surgery
PROC: 0SRB0JA Replacement of Left Hip Joint with Synthetic Substitute, Uncemented, Open Approach (ICD-10-PCS; principal; 2021-08-14 07:30)
DX: M16.12 Unilateral primary osteoarthritis, left hip (principal); I10 Essential (primary) hypertension; E11.9 Type 2 diabetes mellitus without complications; Z96.652 Presence of left artificial knee joint
CPT/HCPCS: 36415; 71046; 73500; 80048; 80053; 81003; 81015; 82947; 85014; 85018; 85025; 85610; 85730; 86850; 86900; 86901; 88304; 88305; 88311; 97116; 97161; 97530; G0378; G0379; J0690; J1100; J1650; J2250; J2370; J2704; J3010; J7030; J7120; U0002